=== PATIENT | male | born 1985 | race African-American/Black ===

== ENCOUNTER 2018-05-12 03:12 | Inpatient (IN) | payer MEDICAID, SELFPAY ==
[~2018-05-12] VITALS: Ht 167.6 cm; Wt 132.4 kg
[2018-05-12 04:20] LABS: BASOPHILS # (AUTO) 0.15 x10^3/uL (0-0.1); BASOPHILS % (AUTO) 2 % (0-1); EOSINOPHILS # (AUTO) 0.22 x10^3/uL (0-0.4); EOSINOPHILS % (AUTO) 2 % (1-7); LYMPHOCYTES # (AUTO) 1.52 x10^3/uL (1-3.4); LYMPHOCYTES % (AUTO) 17 % (22-44); MD NO; MEAN CORPUSCULAR HEMOGLOBIN 27.7 pg (27.5-34.5); MEAN CORPUSCULAR HGB CONC 31.9 g/dL (33.2-36.2); MEAN PLATELET VOLUME 9.7 fL (7.4-10.4); MONOCYTES # (AUTO) 0.79 x10^3/uL (0.2-0.8); MONOCYTES % (AUTO) 9 % (2-9); NEUTROPHILS # (AUTO) 6.46 x10^3/uL (1.8-6.8); NEUTROPHILS % (AUTO) 71 % (42-75); PLATELET COUNT 138 x10^3/uL (130-400); RED BLOOD COUNT 6.08 x10^6/uL (4.38-5.82)
[2018-05-12 04:34] LABS: ALANINE AMINOTRANSFERASE 28 U/L (12-78); ALBUMIN 2.5 g/dL (3.4-5.0); ANION GAP 5 mmol/L (5-15); CALCIUM 7.3 mg/dL (8.5-10.1); CHLORIDE 106 mmol/L (98-107); CREATININE 1.44 mg/dL (0.7-1.3)
[2018-05-12 04:38] LABS: ALKALINE PHOSPHATASE 56 U/L (45-117); TOTAL PROTEIN 7.8 g/dL (6.4-8.2); TROPONIN I < 0.015 ng/mL (0.000-0.045)
[2018-05-12] MEDS ORDERED: FUROSEMIDE 40 MG/4 ML ONE (06:31)
[2018-05-12] MEDS: FUROSEMIDE 40 MG/4 ML IV ONE ×2 (06:51→07:00)
[2018-05-12] MEDS ORDERED: DOCUSATE 100 MG CAPSULE PO PRN (08:00)
[2018-05-12] MEDS ORDERED: GUAIFENESIN/DM 200-20MG, 10ML UDC PO PRN (08:00)
[2018-05-12] MEDS ORDERED: BISACODYL 10 MG SUPP PR PRN (08:00)
[2018-05-12] MEDS ORDERED: ENALAPRILAT 1.25 MG/ML, 2ML IVPush PRN (08:00)
[2018-05-12] MEDS ORDERED: POLYETHYLENE GLYCOL 17 GM PACKET PO PRN (08:00)
[2018-05-12] MEDS ORDERED: hydrALAzine 20 MG/ML, 1ML IVPush PRN (08:00)
[2018-05-12] MEDS ORDERED: LABETALOL 5MG/ML, 20ML IVPush PRN (08:00)
[2018-05-12] MEDS ORDERED: FUROSEMIDE 20 MG/2 ML IV SCH (09:00)
[2018-05-12 09:10] LABS: TROPONIN I < 0.015 ng/mL (0.000-0.045)
[2018-05-12 09:16] LABS: FREE T4 (FREE THYROXINE) 1.06 ng/dL (0.76-1.46)
[2018-05-12 13:42] LABS: TROPONIN I < 0.015 ng/mL (0.000-0.045)
[2018-05-12 13:47] LABS: HEMOGLOBIN A1C 5.3 % (4.2-6.3)
[2018-05-12] MEDS ORDERED: PROPOFOL 100 ML IV ONE (14:39)
[2018-05-12] MEDS ORDERED: MIDAZOLAM 1 MG/ML, 5ML ONE ×2 (14:42→15:59)
[2018-05-12] MEDS ORDERED: FENTANYL PF 100 MCG/2ML IVPush PRN (15:00)
[2018-05-12] MEDS ORDERED: SILDENAFIL 10MG/12.5ML IVPush SCH (15:00)
[2018-05-12] MEDS ORDERED: LIDOCAINE-MPF 1%, 2ML ENDO PRN (15:00)
[2018-05-12] MEDS ORDERED: PHARMACY MAY ADJ FOR RENAL FX MC SCH (15:00)
[2018-05-12] MEDS: PROPOFOL 100 ML IV PRN ×4 (15:14→22:46)
[2018-05-12] MEDS ORDERED: VECURONIUM 10 MG ONE (15:59)
[2018-05-12 16:21] LABS: CULTURE INDICATED? YES; MICROSCOPIC INDICATED
[2018-05-12 16:25] LABS: AMPHETAMINE SCREEN, URINE Negative (Negative); BARBITURATE SCREEN, URINE Negative (Negative); BENZODIAZEPINE SCREEN, URINE Positive (Negative); CANNABINOID SCREEN, URINE Negative (Negative); COCAINE SCREEN, URINE Negative (Negative); METHADONE SCREEN, URINE Negative (Negative); OPIATE SCREEN, URINE Negative (Negative)
[2018-05-12] MEDS: SILDENAFIL 20 MG TABLET PO SCH (17:19)
[2018-05-12] MEDS: FUROSEMIDE 40 MG/4 ML IV SCH (17:46)
[2018-05-12] MEDS: RIVAROXABAN 20 MG TABLET PO SCH (17:46)
[2018-05-12] MEDS ORDERED: APIXABAN 5 MG TABLET PO SCH (21:00)
[2018-05-13] MEDS: PROPOFOL 100 ML IV PRN ×5 (04:31→20:43)
[2018-05-13 04:35] LABS: BASOPHILS # (AUTO) 0.06 x10^3/uL (0-0.1); BASOPHILS % (AUTO) 1 % (0-1); EOSINOPHILS # (AUTO) 0.13 x10^3/uL (0-0.4); EOSINOPHILS % (AUTO) 1 % (1-7); LYMPHOCYTES # (AUTO) 0.92 x10^3/uL (1-3.4); LYMPHOCYTES % (AUTO) 8 % (22-44); MD NO; MEAN CORPUSCULAR HEMOGLOBIN 27.7 pg (27.5-34.5); MEAN CORPUSCULAR HGB CONC 32.1 g/dL (33.2-36.2); MEAN CORPUSCULAR VOLUME 86.3 fL (81-97); MONOCYTES # (AUTO) 0.81 x10^3/uL (0.2-0.8); MONOCYTES % (AUTO) 7 % (2-9); NEUTROPHILS # (AUTO) 9.13 x10^3/uL (1.8-6.8); NEUTROPHILS % (AUTO) 83 % (42-75); PLATELET COUNT 122 x10^3/uL (130-400); RED BLOOD COUNT 6.08 x10^6/uL (4.38-5.82); RED CELL DISTRIBUTION WIDTH 18.1 % (9.4-14.8)
[2018-05-13 04:49] LABS: CALCIUM 8.2 mg/dL (8.5-10.1); CHLORIDE 103 mmol/L (98-107)
[2018-05-13 04:57] LABS: ALANINE AMINOTRANSFERASE 24 U/L (12-78); ALBUMIN 2.4 g/dL (3.4-5.0); ALKALINE PHOSPHATASE 54 U/L (45-117); ANION GAP 10 mmol/L (5-15); CHOL/HDL RATIO 3.2; CHOLESTEROL, TOTAL 60 mg/dL (140-239); HDL CHOL % 32 % (26-37); HDL CHOLESTEROL (DIRECT) 19 mg/dL (40-60); TOTAL PROTEIN 7.3 g/dL (6.4-8.2)
[2018-05-13 04:58] LABS: LDL CHOLESTEROL,CALCULATED 21 mg/dL (54-169); LDL/HDL RATIO 1.1 (0.5-3.0); TRIGLYCERIDES 101 mg/dL (50-200); VLDL CHOLESTEROL 20 mg/dL (0-25)
[2018-05-13] MEDS: FUROSEMIDE 40 MG/4 ML IV SCH ×2 (05:27→17:30)
[2018-05-13] MEDS: SILDENAFIL 20 MG TABLET PO SCH ×3 (05:27→22:35)
[2018-05-13] MEDS ORDERED: POTASSIUM PHOS 4.4 MEQ/ML IV STA (11:07)
[2018-05-13] MEDS ORDERED: MAGNESIUM SULFATE PMX 2GM/50ML 50 ML IV ONE (11:30)
[2018-05-13] MEDS ORDERED: POTASSIUM PHOSPHATE 44 MEQ in SODIUM CHLORIDE 0.9% 500 ML IV ONE (11:30)
[2018-05-13] MEDS: FAMOTIDINE 20 MG/2 ML IVPush SCH ×2 (12:16→22:36)
[2018-05-13] MEDS ORDERED: FUROSEMIDE 40 MG/4 ML IV STA (16:32)
[2018-05-13] MEDS ORDERED: AcetaZOLAMIDE INJ 500 MG IVPush ONE (17:00)
[2018-05-13] MEDS: RIVAROXABAN 20 MG TABLET PO SCH (17:16)
[2018-05-13] MEDS: CEFTRIAXONE PMX 2GM/50ML 50 ML IV SCH (18:40)
[2018-05-14] MEDS: PROPOFOL 100 ML IV PRN ×2 (00:15→04:29)
[2018-05-14 04:35] LABS: BASOPHILS # (AUTO) 0.04 x10^3/uL (0-0.1); BASOPHILS % (AUTO) 0 % (0-1); EOSINOPHILS # (AUTO) 0.24 x10^3/uL (0-0.4); EOSINOPHILS % (AUTO) 2 % (1-7); LYMPHOCYTES # (AUTO) 0.99 x10^3/uL (1-3.4); LYMPHOCYTES % (AUTO) 10 % (22-44); MD NO; MEAN CORPUSCULAR HGB CONC 32.4 g/dL (33.2-36.2); MEAN CORPUSCULAR VOLUME 86.4 fL (81-97); MEAN PLATELET VOLUME 10.2 fL (7.4-10.4); MONOCYTES # (AUTO) 0.44 x10^3/uL (0.2-0.8); MONOCYTES % (AUTO) 4 % (2-9); NEUTROPHILS # (AUTO) 8.44 x10^3/uL (1.8-6.8); NEUTROPHILS % (AUTO) 83 % (42-75); PLATELET COUNT 130 x10^3/uL (130-400); RED BLOOD COUNT 6.27 x10^6/uL (4.38-5.82); RED CELL DISTRIBUTION WIDTH 18.3 % (9.4-14.8)
[2018-05-14 04:47] LABS: ANION GAP 8 mmol/L (5-15); CALCIUM 7.6 mg/dL (8.5-10.1); CHLORIDE 101 mmol/L (98-107)
[2018-05-14 04:48] LABS: CREATININE 1.45 mg/dL (0.7-1.3)
[2018-05-14] MEDS: SILDENAFIL 20 MG TABLET PO SCH ×3 (05:31→21:26)
[2018-05-14] MEDS: FUROSEMIDE 40 MG/4 ML IV SCH ×2 (05:31→18:17)
[2018-05-14] MEDS ORDERED: MAGNESIUM SULFATE PMX 2GM/50ML 50 ML IV ONE (08:30)
[2018-05-14] MEDS: FAMOTIDINE 20 MG/2 ML IVPush SCH ×2 (12:20→21:26)
[2018-05-14] MEDS: CEFTRIAXONE PMX 2GM/50ML 50 ML IV SCH (15:52)
[2018-05-14] MEDS: RIVAROXABAN 20 MG TABLET PO SCH (18:19)
[2018-05-15 04:39] LABS: BASOPHILS # (AUTO) 0.05 x10^3/uL (0-0.1); BASOPHILS % (AUTO) 0 % (0-1); EOSINOPHILS % (AUTO) 3 % (1-7); LYMPHOCYTES % (AUTO) 9 % (22-44); MD NO; MEAN CORPUSCULAR HEMOGLOBIN 28.1 pg (27.5-34.5); MEAN CORPUSCULAR HGB CONC 32.1 g/dL (33.2-36.2); MEAN CORPUSCULAR VOLUME 87.7 fL (81-97); MEAN PLATELET VOLUME 10.3 fL (7.4-10.4); MONOCYTES # (AUTO) 0.53 x10^3/uL (0.2-0.8); MONOCYTES % (AUTO) 5 % (2-9); NEUTROPHILS # (AUTO) 8.72 x10^3/uL (1.8-6.8); NEUTROPHILS % (AUTO) 83 % (42-75); PLATELET COUNT 146 x10^3/uL (130-400); RED BLOOD COUNT 6.36 x10^6/uL (4.38-5.82); RED CELL DISTRIBUTION WIDTH 18.4 % (9.4-14.8)
[2018-05-15] MEDS: SILDENAFIL 20 MG TABLET PO SCH ×3 (06:20→21:01)
[2018-05-15] MEDS: FUROSEMIDE 40 MG/4 ML IV SCH ×2 (06:20→17:20)
[2018-05-15 09:23] LABS: ANION GAP 9 mmol/L (5-15); CALCIUM 8.3 mg/dL (8.5-10.1); CHLORIDE 102 mmol/L (98-107)
[2018-05-15] MEDS: SPIRONOLACTONE 25 MG TABLET PO SCH (09:29)
[2018-05-15] MEDS: CEFDINIR 300 MG CAPSULE PO SCH ×2 (09:29→21:01)
[2018-05-15] MEDS: RIVAROXABAN 20 MG TABLET PO SCH (17:20)
[2018-05-15 19:04] LABS: CALCIUM 8.3 mg/dL (8.5-10.1)
[2018-05-16 04:57] LABS: ANION GAP 6 mmol/L (5-15); CALCIUM 8.2 mg/dL (8.5-10.1); CHLORIDE 99 mmol/L (98-107); CREATININE 1.12 mg/dL (0.7-1.3)
[2018-05-16] MEDS: FUROSEMIDE 40 MG/4 ML IV SCH (05:54)
[2018-05-16] MEDS: SILDENAFIL 20 MG TABLET PO SCH ×3 (05:54→21:29)
[2018-05-16] MEDS: SPIRONOLACTONE 25 MG TABLET PO SCH (09:38)
[2018-05-16] MEDS: CEFDINIR 300 MG CAPSULE PO SCH ×2 (09:38→21:28)
[2018-05-16] MEDS: OXYcodone IR 5MG TABLET PO PRN (17:51)
[2018-05-16] MEDS: RIVAROXABAN 20 MG TABLET PO SCH (17:51)
[2018-05-17 00:11] VITALS: BP 111/73
[2018-05-17] MEDS: FUROSEMIDE 40 MG/4 ML IV SCH (05:04)
[2018-05-17] MEDS: SILDENAFIL 20 MG TABLET PO SCH ×3 (05:05→21:33)
[2018-05-17 05:24] LABS: CHLORIDE 99 mmol/L (98-107)
[2018-05-17 05:30] LABS: ANION GAP 7 mmol/L (5-15); CALCIUM 8.8 mg/dL (8.5-10.1); CREATININE 0.97 mg/dL (0.7-1.3)
[2018-05-17] MEDS: SPIRONOLACTONE 25 MG TABLET PO SCH (09:10)
[2018-05-17] MEDS: OXYcodone IR 5MG TABLET PO PRN (09:11)
[2018-05-17 12:32] VITALS: BP 104/63
[2018-05-17] MEDS: RIVAROXABAN 20 MG TABLET PO SCH (17:45)
[2018-05-17 20:49] VITALS: BP 107/64
[2018-05-18] MEDS: ACETAMINOPHEN 325 MG TABLET PO PRN ×2 (01:27→13:55)
[2018-05-18 01:30] VITALS: BP 100/62
[2018-05-18] MEDS ORDERED: VANCOMYCIN 2,100 MG in SODIUM CHLORIDE 0.9% 500 ML IV SCH (02:00)
[2018-05-18] MEDS ORDERED: PHARMACOKINETIC MONITORING MC PRN (02:00)
[2018-05-18] MEDS ORDERED: VANCOMYCIN PER PHARMACY MC PRN (02:00)
[2018-05-18] MEDS ORDERED: PHARMACOKINETIC CONSULTATION MC ONE (02:00)
[2018-05-18 05:51] VITALS: BP 101/68
[2018-05-18] MEDS: SILDENAFIL 20 MG TABLET PO SCH ×3 (05:52→21:55)
[2018-05-18] MEDS: FUROSEMIDE 40 MG/4 ML IV SCH (05:52)
[2018-05-18 07:35] VITALS: BP 101/65
[2018-05-18] MEDS: SPIRONOLACTONE 25 MG TABLET PO SCH (09:16)
[2018-05-18 10:24] LABS: MEAN CORPUSCULAR HEMOGLOBIN 27.5 pg (27.5-34.5); MEAN CORPUSCULAR HGB CONC 31.5 g/dL (33.2-36.2); MEAN CORPUSCULAR VOLUME 87.5 fL (81-97); MEAN PLATELET VOLUME 10.9 fL (7.4-10.4); PLATELET COUNT 142 x10^3/uL (130-400); RED CELL DISTRIBUTION WIDTH 16.7 % (9.4-14.8)
[2018-05-18 10:31] LABS: ALANINE AMINOTRANSFERASE 48 U/L (12-78); ALBUMIN 2.7 g/dL (3.4-5.0); ANION GAP 5 mmol/L (5-15); CALCIUM 8.8 mg/dL (8.5-10.1); CHLORIDE 100 mmol/L (98-107)
[2018-05-18 10:34] LABS: ALKALINE PHOSPHATASE 82 U/L (45-117); BILIRUBIN,TOTAL 5.9 mg/dL (0.2-1.0); CREATININE 1.42 mg/dL (0.7-1.3); TOTAL PROTEIN 8.5 g/dL (6.4-8.2)
[2018-05-18 10:41] LABS: MD YES
[2018-05-18 10:49] LABS: BAND#(MANUAL) 6.74 x10^3/uL; BANDS%(MANUAL) 24 % (0-7); LYMPH#(MANUAL) 0.84 x10^3/uL (1-3.4); LYMPHS% (MANUAL) 3 % (22-44); MONOS#(MANUAL) 0.84 x10^3/uL (0.3-2.7); MONOS% (MANUAL) 3 % (2-9); SEG#(MANUAL) 19.67 x10^3/uL (1.8-6.8); SEGS% (MANUAL) 70 % (42-75)
[2018-05-18 10:51] LABS: <PLATELET ESTIMATE> ADEQUATE; ANISOCYTOSIS 1+; LARGE PLATELETS 1+; STOMATOCYTES 1+
[2018-05-18] MEDS: PIPERACILLIN/TAZO/PMX 3.375GM 50 ML IV SCH ×2 (12:53→19:36)
[2018-05-18 13:28] LABS: CULTURE INDICATED? YES; MICROSCOPIC INDICATED
[2018-05-18] MEDS: SODIUM CHLORIDE 0.9% 1,000 ML IV SCH ×2 (13:28→18:23)
[2018-05-18] MEDS ORDERED: MAGNESIUM SULFATE PMX 2GM/50ML 50 ML IV ONE (13:30)
[2018-05-18] MEDS: VANCOMYCIN 2,000 MG in SODIUM CHLORIDE 0.9% 500 ML IV SCH (13:59)
[2018-05-18] MEDS: OXYcodone IR 5MG TABLET PO PRN (14:07)
[2018-05-18] MEDS ORDERED: ONDANSETRON 2MG/ML, 2ML ONE (14:17)
[2018-05-18] MEDS ORDERED: ACETAMINOPHEN 650 MG SUPP ONE (14:22)
[2018-05-18] MEDS ORDERED: ACETAMINOPHEN 325 MG SUPP PR PRN (14:30)
[2018-05-18] MEDS ORDERED: ACETAMINOPHEN 650 MG SUPP PR ONE (15:00)
[2018-05-18] MEDS ORDERED: ONDANSETRON 2MG/ML, 2ML IVPush PRN (15:00)
[2018-05-18] MEDS ORDERED: SODIUM CHLORIDE 0.9% 1,000ML IVBOLUS ONE ×2 (15:00→19:00)
[2018-05-18] MEDS ORDERED: OXYcodone IR 5MG TABLET PO PRN (16:00)
[2018-05-18] MEDS ORDERED: LIDOCAINE-MPF 1%, 5ML ONE (16:41)
[2018-05-18 16:42] LABS: ALBUMIN 2.2 g/dL (3.4-5.0); ANION GAP 7 mmol/L (5-15); CALCIUM 7.8 mg/dL (8.5-10.1); CHLORIDE 100 mmol/L (98-107)
[2018-05-18 16:45] LABS: ALANINE AMINOTRANSFERASE 47 U/L (12-78); ALKALINE PHOSPHATASE 142 U/L (45-117); BILIRUBIN,TOTAL 6.5 mg/dL (0.2-1.0); CREATININE 1.98 mg/dL (0.7-1.3); TOTAL PROTEIN 7.9 g/dL (6.4-8.2)
[2018-05-18] MEDS ORDERED: ALBUMIN HUMAN 25% 100 ML ONE (17:11)
[2018-05-18] MEDS: RIVAROXABAN 20 MG TABLET PO SCH (17:30)
[2018-05-18] MEDS ORDERED: ALBUMIN HUMAN 25% 100 ML IV ONE ×2 (17:30→20:30)
[2018-05-18] MEDS: NOREPINEPHRINE 4 MG in SODIUM CHLORIDE 0.9% 246 ML IV PRN ×2 (18:07→21:20)
[2018-05-18 18:26] LABS: TROPONIN I 0.027 ng/mL (0.000-0.045)
[2018-05-18] MEDS ORDERED: VASOPRESSIN 100 UNIT in SODIUM CHLORIDE 0.9% 495 ML IV PRN (18:30)
[2018-05-18] MEDS ORDERED: PHARMACY MAY ADJ FOR RENAL FX MC PRN (19:00)
[2018-05-18] MEDS ORDERED: ONDANSETRON 2MG/ML, 2ML IVPB PRN (19:00)
[2018-05-18] MEDS ORDERED: SODIUM CHLORIDE 0.9%, 500ML IVBOLUS PRN ×2 (19:00)
[2018-05-18] MEDS ORDERED: MORPHINE SULFATE 4 MG/ML, 1ML IV PRN (19:00)
[2018-05-18] MEDS: HEPARIN 5,000 UNITS/ML, 1ML SQ SCH (19:39)
[2018-05-18 19:56] LABS: MICROSCOPIC INDICATED
[2018-05-18 19:57] LABS: CULTURE INDICATED? YES
[2018-05-18] MEDS ORDERED: LORazepam 2 MG/ML, 1ML IVPush PRN (20:30)
[2018-05-18] MEDS ORDERED: NOREPINEPHRINE 1 MG/ML, 4ML ONE (21:16)
[2018-05-18] MEDS ORDERED: NOREPINEPHRINE 8 MG in SODIUM CHLORIDE 0.9% 242 ML IV PRN (21:30)
[2018-05-18] MEDS ORDERED: SODIUM BICARBONATE 1 MEQ/ML, 50ML VIAL ONE (21:47)
[2018-05-18] MEDS ORDERED: SODIUM BICARB 8.4%, 50ML SYRINGE ONE ×3 (21:48→21:49)
[2018-05-18] MEDS ORDERED: SODIUM BICARB 8.4%, 50ML SYRINGE IVPush ONE ×2 (22:00)
[2018-05-19] MEDS ORDERED: SODIUM CHLORIDE 0.45% 1,000 ML IV SCH
[2018-05-19 01:30] LABS: TROPONIN I 0.016 ng/mL (0.000-0.045)
[2018-05-19] MEDS: PIPERACILLIN/TAZO/PMX 3.375GM 50 ML IV SCH ×4 (01:33→20:36)
[2018-05-19] MEDS: VANCOMYCIN 2,000 MG in SODIUM CHLORIDE 0.9% 500 ML IV SCH ×2 (01:54→14:00)
[2018-05-19] MEDS: HEPARIN 5,000 UNITS/ML, 1ML SQ SCH (05:00)
[2018-05-19 05:28] LABS: ALANINE AMINOTRANSFERASE 47 U/L (12-78); ALBUMIN 2.7 g/dL (3.4-5.0); ANION GAP 6 mmol/L (5-15); CALCIUM 7.7 mg/dL (8.5-10.1); CHLORIDE 103 mmol/L (98-107)
[2018-05-19 05:31] LABS: ALKALINE PHOSPHATASE 52 U/L (45-117); BILIRUBIN,TOTAL 5.8 mg/dL (0.2-1.0); TOTAL PROTEIN 7.6 g/dL (6.4-8.2)
[2018-05-19 05:42] LABS: MEAN CORPUSCULAR HEMOGLOBIN 28.4 pg (27.5-34.5); MEAN CORPUSCULAR HGB CONC 32.7 g/dL (33.2-36.2); MEAN CORPUSCULAR VOLUME 86.8 fL (81-97); MEAN PLATELET VOLUME 11.1 fL (7.4-10.4); PLATELET COUNT 114 x10^3/uL (130-400); RED BLOOD COUNT 5.41 x10^6/uL (4.38-5.82); RED CELL DISTRIBUTION WIDTH 17.2 % (9.4-14.8)
[2018-05-19] MEDS: SILDENAFIL 20 MG TABLET PO SCH ×3 (06:11→22:00)
[2018-05-19 06:22] LABS: MD YES
[2018-05-19 06:23] LABS: ANISOCYTOSIS 1+; BAND#(MANUAL) 2.74 x10^3/uL; BANDS%(MANUAL) 12 % (0-7); LYMPHS% (MANUAL) 7 % (22-44); MONOS#(MANUAL) 1.37 x10^3/uL (0.3-2.7); MONOS% (MANUAL) 6 % (2-9); SEGS% (MANUAL) 75 % (42-75)
[2018-05-19 06:24] LABS: <PLATELET ESTIMATE> DECREASED; LARGE PLATELETS 1+
[2018-05-19] MEDS: SPIRONOLACTONE 25 MG TABLET PO SCH (08:05)
[2018-05-19] MEDS: RIVAROXABAN 20 MG TABLET PO SCH (18:32)
[2018-05-20] MEDS: PIPERACILLIN/TAZO/PMX 3.375GM 50 ML IV SCH ×2 (01:24→08:45)
[2018-05-20] MEDS ORDERED: VANCOMYCIN 2,000 MG in SODIUM CHLORIDE 0.9% 500 ML IV SCH (02:00)
[2018-05-20 04:06] LABS: BASOPHILS # (AUTO) 0.05 x10^3/uL (0-0.1); BASOPHILS % (AUTO) 0 % (0-1); EOSINOPHILS # (AUTO) 0.23 x10^3/uL (0-0.4); EOSINOPHILS % (AUTO) 2 % (1-7); LYMPHOCYTES % (AUTO) 16 % (22-44); MD NO; MEAN CORPUSCULAR HEMOGLOBIN 28.2 pg (27.5-34.5); MEAN CORPUSCULAR HGB CONC 32.3 g/dL (33.2-36.2); MEAN CORPUSCULAR VOLUME 87.3 fL (81-97); MEAN PLATELET VOLUME 10.8 fL (7.4-10.4); MONOCYTES # (AUTO) 1.22 x10^3/uL (0.2-0.8); MONOCYTES % (AUTO) 10 % (2-9); NEUTROPHILS # (AUTO) 8.35 x10^3/uL (1.8-6.8); NEUTROPHILS % (AUTO) 71 % (42-75); PLATELET COUNT 122 x10^3/uL (130-400); RED BLOOD COUNT 5.05 x10^6/uL (4.38-5.82); RED CELL DISTRIBUTION WIDTH 17.2 % (9.4-14.8)
[2018-05-20 04:16] LABS: ANION GAP 4 mmol/L (5-15); CHLORIDE 104 mmol/L (98-107)
[2018-05-20 04:17] LABS: CALCIUM 8.2 mg/dL (8.5-10.1); CREATININE 1.08 mg/dL (0.7-1.3)
[2018-05-20] MEDS: SILDENAFIL 20 MG TABLET PO SCH ×3 (06:19→21:24)
[2018-05-20] MEDS: SPIRONOLACTONE 25 MG TABLET PO SCH (08:45)
[2018-05-20] MEDS: MEROPENEM 1 GM in SODIUM CHLORIDE 0.9% 100 ML IV SCH ×2 (12:40→18:17)
[2018-05-20] MEDS: RIVAROXABAN 20 MG TABLET PO SCH (17:28)
[2018-05-21] MEDS: MEROPENEM 1 GM in SODIUM CHLORIDE 0.9% 100 ML IV SCH ×3 (04:05→20:01)
[2018-05-21] MEDS: SILDENAFIL 20 MG TABLET PO SCH ×3 (06:06→21:41)
[2018-05-21 08:03] LABS: ALBUMIN 2.6 g/dL (3.4-5.0); ANION GAP 7 mmol/L (5-15); CALCIUM 8.6 mg/dL (8.5-10.1); CHLORIDE 104 mmol/L (98-107)
[2018-05-21 08:06] LABS: BASOPHILS # (AUTO) 0.05 x10^3/uL (0-0.1); BASOPHILS % (AUTO) 1 % (0-1); EOSINOPHILS # (AUTO) 0.23 x10^3/uL (0-0.4); EOSINOPHILS % (AUTO) 4 % (1-7); LYMPHOCYTES # (AUTO) 1.71 x10^3/uL (1-3.4); LYMPHOCYTES % (AUTO) 26 % (22-44); MD NO; MEAN CORPUSCULAR HEMOGLOBIN 28.8 pg (27.5-34.5); MEAN CORPUSCULAR VOLUME 87.2 fL (81-97); MEAN PLATELET VOLUME 10.3 fL (7.4-10.4); MONOCYTES # (AUTO) 0.46 x10^3/uL (0.2-0.8); MONOCYTES % (AUTO) 7 % (2-9); NEUTROPHILS # (AUTO) 4.04 x10^3/uL (1.8-6.8); NEUTROPHILS % (AUTO) 62 % (42-75); PLATELET COUNT 117 x10^3/uL (130-400); RED BLOOD COUNT 5.34 x10^6/uL (4.38-5.82); RED CELL DISTRIBUTION WIDTH 17.4 % (9.4-14.8)
[2018-05-21 08:07] LABS: ALANINE AMINOTRANSFERASE 34 U/L (12-78); ALKALINE PHOSPHATASE 43 U/L (45-117); BILIRUBIN,TOTAL 2.2 mg/dL (0.2-1.0); CREATININE 0.78 mg/dL (0.7-1.3); TOTAL PROTEIN 7.8 g/dL (6.4-8.2)
[2018-05-21] MEDS: SPIRONOLACTONE 25 MG TABLET PO SCH (12:12)
[2018-05-21] MEDS ORDERED: FUROSEMIDE 40 MG/4 ML IV ONE (14:00)
[2018-05-21] MEDS: RIVAROXABAN 20 MG TABLET PO SCH (18:21)
[2018-05-22] MEDS: MEROPENEM 1 GM in SODIUM CHLORIDE 0.9% 100 ML IV SCH ×3 (03:28→19:43)
[2018-05-22 05:01] LABS: BASOPHILS # (AUTO) 0.06 x10^3/uL (0-0.1); BASOPHILS % (AUTO) 1 % (0-1); EOSINOPHILS # (AUTO) 0.32 x10^3/uL (0-0.4); EOSINOPHILS % (AUTO) 4 % (1-7); LYMPHOCYTES # (AUTO) 2.26 x10^3/uL (1-3.4); LYMPHOCYTES % (AUTO) 29 % (22-44); MD NO; MEAN CORPUSCULAR HEMOGLOBIN 28.3 pg (27.5-34.5); MEAN CORPUSCULAR HGB CONC 32.9 g/dL (33.2-36.2); MEAN CORPUSCULAR VOLUME 85.9 fL (81-97); MEAN PLATELET VOLUME 10.6 fL (7.4-10.4); MONOCYTES # (AUTO) 0.44 x10^3/uL (0.2-0.8); MONOCYTES % (AUTO) 6 % (2-9); NEUTROPHILS % (AUTO) 61 % (42-75); PLATELET COUNT 156 x10^3/uL (130-400); RED CELL DISTRIBUTION WIDTH 16.5 % (9.4-14.8)
[2018-05-22 05:05] LABS: ALANINE AMINOTRANSFERASE 35 U/L (12-78); ALBUMIN 2.7 g/dL (3.4-5.0); ANION GAP 5 mmol/L (5-15); CALCIUM 8.5 mg/dL (8.5-10.1); CHLORIDE 101 mmol/L (98-107); CREATININE 0.82 mg/dL (0.7-1.3)
[2018-05-22 05:13] LABS: ALKALINE PHOSPHATASE 45 U/L (45-117); BILIRUBIN,TOTAL 2.2 mg/dL (0.2-1.0); TOTAL PROTEIN 7.8 g/dL (6.4-8.2)
[2018-05-22] MEDS: SILDENAFIL 20 MG TABLET PO SCH ×3 (06:18→21:47)
[2018-05-22] MEDS: SPIRONOLACTONE 25 MG TABLET PO SCH (09:20)
[2018-05-22] MEDS: RIVAROXABAN 20 MG TABLET PO SCH (17:32)
[2018-05-23] MEDS: MEROPENEM 1 GM in SODIUM CHLORIDE 0.9% 100 ML IV SCH ×3 (03:24→19:52)
[2018-05-23 04:37] LABS: BASOPHILS # (AUTO) 0.08 x10^3/uL (0-0.1); BASOPHILS % (AUTO) 1 % (0-1); EOSINOPHILS # (AUTO) 0.34 x10^3/uL (0-0.4); EOSINOPHILS % (AUTO) 5 % (1-7); LYMPHOCYTES # (AUTO) 2.31 x10^3/uL (1-3.4); LYMPHOCYTES % (AUTO) 33 % (22-44); MD NO; MEAN CORPUSCULAR HEMOGLOBIN 28.2 pg (27.5-34.5); MEAN CORPUSCULAR VOLUME 85.5 fL (81-97); MEAN PLATELET VOLUME 10.2 fL (7.4-10.4); MONOCYTES # (AUTO) 0.42 x10^3/uL (0.2-0.8); MONOCYTES % (AUTO) 6 % (2-9); NEUTROPHILS # (AUTO) 3.87 x10^3/uL (1.8-6.8); NEUTROPHILS % (AUTO) 55 % (42-75); PLATELET COUNT 173 x10^3/uL (130-400)
[2018-05-23 04:43] LABS: ANION GAP 6 mmol/L (5-15); CALCIUM 8.6 mg/dL (8.5-10.1); CHLORIDE 102 mmol/L (98-107); CREATININE 0.79 mg/dL (0.7-1.3)
[2018-05-23] MEDS: SILDENAFIL 20 MG TABLET PO SCH ×3 (06:10→21:54)
[2018-05-23 07:44] VITALS: BP 101/69
[2018-05-23] MEDS: SPIRONOLACTONE 25 MG TABLET PO SCH (08:50)
[2018-05-23 14:00] VITALS: BP 98/68
[2018-05-23] MEDS: RIVAROXABAN 20 MG TABLET PO SCH (17:50)
[2018-05-23] MEDS ORDERED: MAGNESIUM SULFATE PMX 2GM/50ML 50 ML IV ONE (18:30)
[2018-05-24 02:10] VITALS: BP 103/67
[2018-05-24] MEDS: MEROPENEM 1 GM in SODIUM CHLORIDE 0.9% 100 ML IV SCH (03:33)
[2018-05-24 04:52] LABS: BASOPHILS # (AUTO) 0.11 x10^3/uL (0-0.1); BASOPHILS % (AUTO) 1 % (0-1); EOSINOPHILS # (AUTO) 0.42 x10^3/uL (0-0.4); EOSINOPHILS % (AUTO) 6 % (1-7); LYMPHOCYTES # (AUTO) 2.56 x10^3/uL (1-3.4); LYMPHOCYTES % (AUTO) 33 % (22-44); MD NO; MEAN CORPUSCULAR HEMOGLOBIN 28.1 pg (27.5-34.5); MEAN CORPUSCULAR HGB CONC 33.2 g/dL (33.2-36.2); MEAN CORPUSCULAR VOLUME 84.7 fL (81-97); MEAN PLATELET VOLUME 10.4 fL (7.4-10.4); MONOCYTES # (AUTO) 0.37 x10^3/uL (0.2-0.8); MONOCYTES % (AUTO) 5 % (2-9); NEUTROPHILS # (AUTO) 4.21 x10^3/uL (1.8-6.8); NEUTROPHILS % (AUTO) 55 % (42-75); PLATELET COUNT 180 x10^3/uL (130-400); RED BLOOD COUNT 5.68 x10^6/uL (4.38-5.82); RED CELL DISTRIBUTION WIDTH 15.5 % (9.4-14.8)
[2018-05-24 04:57] LABS: ANION GAP 7 mmol/L (5-15); CALCIUM 8.4 mg/dL (8.5-10.1); CHLORIDE 102 mmol/L (98-107)
[2018-05-24 05:00] LABS: CREATININE 0.84 mg/dL (0.7-1.3)
[2018-05-24] MEDS: SILDENAFIL 20 MG TABLET PO SCH ×3 (06:15→21:28)
[2018-05-24 08:08] VITALS: BP 105/72
[2018-05-24] MEDS: SPIRONOLACTONE 25 MG TABLET PO SCH (09:12)
[2018-05-24] MEDS: ERTAPENEM 1 GM in SODIUM CHLORIDE 0.9% 50 ML IV SCH (11:31)
[2018-05-24 14:14] VITALS: BP 97/64
[2018-05-24] MEDS: RIVAROXABAN 20 MG TABLET PO SCH (17:28)
[2018-05-24 20:48] VITALS: BP 106/67
[2018-05-25] VITALS (7 sets, daily range): BP systolic 85–110; BP diastolic 58–76
[2018-05-25] MEDS: SILDENAFIL 20 MG TABLET PO SCH ×3 (05:31→21:30)
[2018-05-25] MEDS: SPIRONOLACTONE 25 MG TABLET PO SCH ×2 (09:28→09:33)
[2018-05-25] MEDS: ERTAPENEM 1 GM in SODIUM CHLORIDE 0.9% 50 ML IV SCH (12:13)
[2018-05-25] MEDS: RIVAROXABAN 20 MG TABLET PO SCH (17:46)
[2018-05-26 01:52] VITALS: BP 100/55
[2018-05-26] MEDS: SILDENAFIL 20 MG TABLET PO SCH ×3 (05:55→20:59)
[2018-05-26 07:49] VITALS: BP 109/68
[2018-05-26] MEDS: SPIRONOLACTONE 25 MG TABLET PO SCH (08:33)
[2018-05-26] MEDS: ERTAPENEM 1 GM in SODIUM CHLORIDE 0.9% 50 ML IV SCH (11:15)
[2018-05-26] MEDS ORDERED: SILD20TA PO (12:14)
[2018-05-26] MEDS ORDERED: RIVA20TA PO (12:14)
[2018-05-26] MEDS ORDERED: SPIR25TA PO (12:14)
[2018-05-26] MEDS ORDERED: ACET325T14 PO (12:14)
[2018-05-26 14:22] VITALS: BP 94/54
[2018-05-26] MEDS: RIVAROXABAN 20 MG TABLET PO SCH (17:12)
[2018-05-26 19:54] VITALS: BP 99/64
[2018-05-27 01:02] VITALS: BP 100/53
[2018-05-27] MEDS: SILDENAFIL 20 MG TABLET PO SCH ×3 (05:28→21:25)
[2018-05-27 06:44] VITALS: BP 98/54
[2018-05-27] MEDS: SPIRONOLACTONE 25 MG TABLET PO SCH (08:38)
[2018-05-27 08:42] VITALS: BP 103/62
[2018-05-27] MEDS: ERTAPENEM 1 GM in SODIUM CHLORIDE 0.9% 50 ML IV SCH (11:03)
[2018-05-27 13:12] VITALS: BP 105/54
[2018-05-27] MEDS: RIVAROXABAN 20 MG TABLET PO SCH (18:28)
[2018-05-27] MEDS: ACETAMINOPHEN 325 MG TABLET PO PRN (18:31)
[2018-05-27 21:13] VITALS: BP 108/54
[2018-05-28 04:15] VITALS: BP 114/61
[2018-05-28] MEDS: SILDENAFIL 20 MG TABLET PO SCH ×3 (06:00→21:34)
[2018-05-28 06:16] VITALS: BP 99/53
[2018-05-28 08:40] VITALS: BP 124/64
[2018-05-28] MEDS: SPIRONOLACTONE 25 MG TABLET PO SCH (09:27)
[2018-05-28] MEDS: ERTAPENEM 1 GM in SODIUM CHLORIDE 0.9% 50 ML IV SCH (12:01)
[2018-05-28 13:19] VITALS: BP 129/71
[2018-05-28] MEDS: RIVAROXABAN 20 MG TABLET PO SCH (17:54)
[2018-05-28 20:08] VITALS: BP 106/55
[2018-05-29 01:53] VITALS: BP 109/54
[2018-05-29] MEDS: SILDENAFIL 20 MG TABLET PO SCH ×3 (05:36→21:54)
[2018-05-29 06:48] VITALS: BP 114/63
[2018-05-29] MEDS: SPIRONOLACTONE 25 MG TABLET PO SCH (08:10)
[2018-05-29] MEDS: ERTAPENEM 1 GM in SODIUM CHLORIDE 0.9% 50 ML IV SCH (11:05)
[2018-05-29 12:33] VITALS: BP 115/69
[2018-05-29] MEDS: RIVAROXABAN 20 MG TABLET PO SCH (17:39)
[2018-05-29 19:13] VITALS: BP 114/58
[2018-05-30 03:41] VITALS: BP 92/51
[2018-05-30 05:13] LABS: ANION GAP 4 mmol/L (5-15); CALCIUM 9.4 mg/dL (8.5-10.1); CHLORIDE 102 mmol/L (98-107)
[2018-05-30 05:14] LABS: CREATININE 0.92 mg/dL (0.7-1.3)
[2018-05-30] MEDS: SILDENAFIL 20 MG TABLET PO SCH ×3 (06:15→20:51)
[2018-05-30 07:56] VITALS: BP 103/58
[2018-05-30] MEDS: SPIRONOLACTONE 25 MG TABLET PO SCH (09:49)
[2018-05-30] MEDS: ERTAPENEM 1 GM in SODIUM CHLORIDE 0.9% 50 ML IV SCH (11:53)
[2018-05-30 13:48] VITALS: BP 113/65
[2018-05-30] MEDS: RIVAROXABAN 20 MG TABLET PO SCH (17:08)
[2018-05-30 19:43] VITALS: BP 97/54
[2018-05-30] MEDS: ACETAMINOPHEN 325 MG TABLET PO PRN (22:52)
[2018-05-31 01:59] VITALS: BP 95/47
[2018-05-31 06:54] VITALS: BP 89/54
[2018-05-31] MEDS: SILDENAFIL 20 MG TABLET PO SCH ×3 (07:06→20:52)
[2018-05-31 08:37] VITALS: BP 104/55
[2018-05-31 11:08] VITALS: BP 103/61
[2018-05-31] MEDS: ERTAPENEM 1 GM in SODIUM CHLORIDE 0.9% 50 ML IV SCH (11:10)
[2018-05-31] MEDS: SPIRONOLACTONE 25 MG TABLET PO SCH (11:10)
[2018-05-31 14:00] VITALS: BP 102/69
[2018-05-31] MEDS: RIVAROXABAN 20 MG TABLET PO SCH (17:21)
[2018-05-31 18:38] VITALS: BP 100/64
[2018-05-31] MEDS ORDERED: ACETAMINOPHEN 325 MG TABLET ONE (21:16)
[2018-05-31] MEDS: ACETAMINOPHEN 325 MG TABLET PO PRN (21:19)
[2018-06-01 00:18] VITALS: BP 99/66
[2018-06-01 05:29] LABS: BASOPHILS # (AUTO) 0.04 x10^3/uL (0-0.1); BASOPHILS % (AUTO) 1 % (0-1); EOSINOPHILS % (AUTO) 4 % (1-7); LYMPHOCYTES # (AUTO) 1.79 x10^3/uL (1-3.4); LYMPHOCYTES % (AUTO) 32 % (22-44); MD NO; MEAN CORPUSCULAR HEMOGLOBIN 28.3 pg (27.5-34.5); MEAN CORPUSCULAR HGB CONC 33.2 g/dL (33.2-36.2); MEAN CORPUSCULAR VOLUME 85.4 fL (81-97); MEAN PLATELET VOLUME 11.2 fL (7.4-10.4); MONOCYTES # (AUTO) 0.33 x10^3/uL (0.2-0.8); MONOCYTES % (AUTO) 6 % (2-9); NEUTROPHILS # (AUTO) 3.31 x10^3/uL (1.8-6.8); NEUTROPHILS % (AUTO) 58 % (42-75); PLATELET COUNT 205 x10^3/uL (130-400); RED BLOOD COUNT 5.71 x10^6/uL (4.38-5.82); RED CELL DISTRIBUTION WIDTH 15.2 % (9.4-14.8)
[2018-06-01 05:39] LABS: ALBUMIN 3.1 g/dL (3.4-5.0); ANION GAP 2 mmol/L (5-15); CHLORIDE 100 mmol/L (98-107)
[2018-06-01 05:41] LABS: CREATININE 0.91 mg/dL (0.7-1.3)
[2018-06-01] MEDS: SILDENAFIL 20 MG TABLET PO SCH ×3 (06:16→22:03)
[2018-06-01 07:55] VITALS: BP 113/79
[2018-06-01] MEDS: SPIRONOLACTONE 25 MG TABLET PO SCH (09:56)
[2018-06-01] MEDS: ERTAPENEM 1 GM in SODIUM CHLORIDE 0.9% 50 ML IV SCH (11:16)
[2018-06-01 14:00] VITALS: BP 122/72
[2018-06-01] MEDS: RIVAROXABAN 20 MG TABLET PO SCH (17:41)
[2018-06-01 19:22] VITALS: BP 114/69
[2018-06-02 02:07] VITALS: BP 107/62
[2018-06-02] MEDS: SILDENAFIL 20 MG TABLET PO SCH (05:46)
[2018-06-02 06:05] LABS: MEAN CORPUSCULAR HEMOGLOBIN 28.1 pg (27.5-34.5); MEAN CORPUSCULAR HGB CONC 33.1 g/dL (33.2-36.2); MEAN CORPUSCULAR VOLUME 84.7 fL (81-97); MEAN PLATELET VOLUME 11.8 fL (7.4-10.4); PLATELET COUNT 213 x10^3/uL (130-400); RED BLOOD COUNT 5.39 x10^6/uL (4.38-5.82); RED CELL DISTRIBUTION WIDTH 15.3 % (9.4-14.8)
[2018-06-02 06:24] LABS: BASOPHILS # (AUTO) 0.05 x10^3/uL (0-0.1); BASOPHILS % (AUTO) 1 % (0-1); EOSINOPHILS # (AUTO) 0.29 x10^3/uL (0-0.4); EOSINOPHILS % (AUTO) 4 % (1-7); LYMPHOCYTES # (AUTO) 2.05 x10^3/uL (1-3.4); LYMPHOCYTES % (AUTO) 31 % (22-44); MD SCAN; MONOCYTES # (AUTO) 0.44 x10^3/uL (0.2-0.8); MONOCYTES % (AUTO) 7 % (2-9); NEUTROPHILS # (AUTO) 3.89 x10^3/uL (1.8-6.8); NEUTROPHILS % (AUTO) 58 % (42-75)
[2018-06-02 06:27] LABS: CHLORIDE 99 mmol/L (98-107)
[2018-06-02 06:40] LABS: ANION GAP 5 mmol/L (5-15); CREATININE 0.88 mg/dL (0.7-1.3)
[2018-06-02 06:41] LABS: ALANINE AMINOTRANSFERASE 70 U/L (12-78); ALBUMIN 3.1 g/dL (3.4-5.0); ALKALINE PHOSPHATASE 108 U/L (45-117); BILIRUBIN,TOTAL 1.6 mg/dL (0.2-1.0); TOTAL PROTEIN 8.9 g/dL (6.4-8.2)
[2018-06-02 07:47] VITALS: BP 106/70
[2018-06-02] MEDS: SPIRONOLACTONE 25 MG TABLET PO SCH (09:03)
[2018-06-02] MEDS: ERTAPENEM 1 GM in SODIUM CHLORIDE 0.9% 50 ML IV SCH (11:00)
== END 2018-06-02 12:13 | disposition home health service (06) | DRG 871 ==
LOC: ED 06:36 → EDIP 06:47 → 5SO 07:20 → CCU 13:55 → 4EST 05-16 17:25 → CCU 05-18 14:41 → 5SO 05-23 06:35 → 4NOR 05-25 18:30 → 3NE 05-31 13:55
PROVIDERS: ADMIT Hospitalist; ATTEND Family Medicine
PROC: 5A1945Z Respiratory Ventilation, 24-96 Consecutive Hours (ICD-10-PCS; principal; 2018-05-12)
PROC: 0BH17EZ Insertion of Endotracheal Airway into Trachea, Via Natural or Artificial Opening (ICD-10-PCS; 2018-05-12)
PROC: 5A09557 Assistance with Respiratory Ventilation, Greater than 96 Consecutive Hours, Continuous Positive Airway Pressure (ICD-10-PCS; 2018-05-15)
PROC: 0T9B70Z Drainage of Bladder with Drainage Device, Via Natural or Artificial Opening (ICD-10-PCS; 2018-05-18)
PROC: 03HY32Z Insertion of Monitoring Device into Upper Artery, Percutaneous Approach (ICD-10-PCS; 2018-05-18)
PROC: 4A133B1 Monitoring of Arterial Pressure, Peripheral, Percutaneous Approach (ICD-10-PCS; 2018-05-18)
PROC: 4A133J1 Monitoring of Arterial Pulse, Peripheral, Percutaneous Approach (ICD-10-PCS; 2018-05-18)
PROC: 02HV33Z Insertion of Infusion Device into Superior Vena Cava, Percutaneous Approach (ICD-10-PCS; 2018-05-18)
PROC: B548ZZA Ultrasonography of Superior Vena Cava, Guidance (ICD-10-PCS; 2018-05-18)
DX: A41.50 Gram-negative sepsis, unspecified (principal); J96.21 Acute and chronic respiratory failure with hypoxia; J96.22 Acute and chronic respiratory failure with hypercapnia; N17.0 Acute kidney failure with tubular necrosis; R65.21 Severe sepsis with septic shock; I50.43 Acute on chronic combined systolic (congestive) and diastolic (congestive) heart failure; E66.2 Morbid (severe) obesity with alveolar hypoventilation; E87.2 Acidosis; K76.6 Portal hypertension; N39.0 Urinary tract infection, site not specified; Z99.11 Dependence on respirator [ventilator] status; Z68.42 Body mass index [BMI] 45.0-49.9, adult; B96.20 Unspecified Escherichia coli [E. coli] as the cause of diseases classified elsewhere; E88.09 Other disorders of plasma-protein metabolism, not elsewhere classified; G47.33 Obstructive sleep apnea (adult) (pediatric); I07.1 Rheumatic tricuspid insufficiency; I27.21 Secondary pulmonary arterial hypertension; I27.81 Cor pulmonale (chronic); I50.82 Biventricular heart failure; K31.89 Other diseases of stomach and duodenum; Z79.01 Long term (current) use of anticoagulants; Z86.711 Personal history of pulmonary embolism; Z86.718 Personal history of other venous thrombosis and embolism; Z99.81 Dependence on supplemental oxygen; Z79.899 Other long term (current) drug therapy; Z23 Encounter for immunization
CPT/HCPCS: 36415; 36600; 82805; 84145; 99285; J3490; 71045; 71046; 76700; 76770; 80048; 80053; 80061; 80202; 80307; 81001; 82040; 82310; 82803; 82962; 83036; 83605; 83690; 83735; 83880; 84100; 84132; 84439; 84443; 84478; 84484; 85025; 87040; 87070; 87077; 87081; 87086; 87186; 87205; 90656; 93005; 93306; 93970; 94002; 94003; 94660; 94762; G0378; J0696; J1335; J1644; J1940; J2185; J2250; J2405; J2543; J2704; J3370; P9047; J1120; J3475; J7030; J7040; J7050

== ENCOUNTER 2019-07-13 04:03 | Inpatient (IN) | payer MEDICAID, OTHER ==
[~2019-07-13] VITALS: Ht 170.2 cm; Wt 114.7 kg
[~2019-07-13 04:03] MED LIST: ACET325T14 PO; RIVA20TA PO; SILD20TA PO; SPIR25TA PO
[2019-07-13] MEDS ORDERED: OXYCODONE (04:10)
[2019-07-13] MEDS ORDERED: PREDNISONE (04:10)
--- NOTE | 2019-07-13 04:17 | NUR ---
PT WHEELED TO ROOM AT THIS TIME FROM TRIAGE
--- NOTE | 2019-07-13 04:20 | NUR ---
34Y M PT HERE WITH COMPLAINT OF BILAT FOOT PAIN, SEEN AT [facility] 06/26 AND GIVEN RX FOR OXYCODONE AND PREDNISONE. PT SOMEWHAT POOR HISTORIAN, IS ABLE TO SAY THAT HE WAS DIAGNOSED WITH GOUT. PT STS CANNOT STAND OR BEND KNEES OR STRAIGHTEN LEGS AND CANNOT UNCROSS LEGS, PT UNCROSSED LEGS STOOD AND TRANSFERED SELF TO [facility] FROM WHEELCHAIR. PT CONNECTED TO MONITORING VSS, NADN, CALL LIGHT IN REACH
--- NOTE | 2019-07-13 04:27 | NUR ---
34Y M COMES IN W/ C/O LEG AND FOOT PAIN [id number]. WAS SEEN AT [facility] AND GIVEN PAIN MEDS. PT OUT OF PAIN MEDS AND IS HURTING AGAIN. PT CONNECTED TO MONITORING HANNAH MARTINEZ. CALL LIGHT IN REACH
[2019-07-13] MEDS ORDERED: ONDANSETRON 2MG/ML, 2ML ONE (04:50)
[2019-07-13] MEDS ORDERED: KETOROLAC 30 MG/1 ML ONE (04:50)
[2019-07-13] MEDS ORDERED: MORPHINE SULFATE 4 MG/ML, 1ML ONE (04:50)
[2019-07-13] MEDS ORDERED: SODIUM CHLORIDE FLUSH 10ML SYR IVF ONE (05:00)
[2019-07-13] MEDS ORDERED: ONDANSETRON 2MG/ML, 2ML IVPush ONE (05:00)
[2019-07-13] MEDS ORDERED: KETOROLAC 30 MG/1 ML IV ONE (05:00)
[2019-07-13] MEDS ORDERED: MORPHINE SULFATE 4 MG/ML, 1ML IVPush PRN (05:00)
--- NOTE | 2019-07-13 05:14 | NUR ---
PT MEDICATED PER MAR, PLACED ON 2L NC VSS, NADN
[2019-07-13 05:35] LABS: BASOPHILS # (AUTO) 0.19 x10^3/uL (0-0.1); BASOPHILS % (AUTO) 2 % (0-1); EOSINOPHILS # (AUTO) 0.21 x10^3/uL (0-0.4); EOSINOPHILS % (AUTO) 2 % (1-7); LYMPHOCYTES # (AUTO) 1.69 x10^3/uL (1-3.4); LYMPHOCYTES % (AUTO) 18 % (22-44); MD NO; MEAN CORPUSCULAR HEMOGLOBIN 28.5 pg (27.5-34.5); MEAN CORPUSCULAR VOLUME 86.3 fL (81-97); MEAN PLATELET VOLUME 9.9 fL (7.4-10.4); MONOCYTES # (AUTO) 0.54 x10^3/uL (0.2-0.8); MONOCYTES % (AUTO) 6 % (2-9); NEUTROPHILS # (AUTO) 6.89 x10^3/uL (1.8-6.8); NEUTROPHILS % (AUTO) 72 % (42-75); PLATELET COUNT 215 x10^3/uL (130-400); RED BLOOD COUNT 4.12 x10^6/uL (4.38-5.82); RED CELL DISTRIBUTION WIDTH 14.3 % (9.4-14.8)
[2019-07-13 05:38] LABS: ALBUMIN 2.6 g/dL (3.4-5.0); ANION GAP 3 mmol/L (5-15); CALCIUM 8.7 mg/dL (8.5-10.1); CHLORIDE 107 mmol/L (98-107)
[2019-07-13 05:40] LABS: CREATININE 0.96 mg/dL (0.7-1.3)
[2019-07-13 05:44] LABS: HCT (SEDRATE) 35.6 % (39.2-51.8)
--- NOTE | 2019-07-13 05:53 | NUR ---
PT SLEEPING ON GURNEY, RESP EVEN AND UNLABORED, NADN.
--- NOTE | 2019-07-13 06:51 | NUR ---
REPORT RECEIVED FROM TODD SMITH. PT RESTING ON Medium. CONNECTED TO MONITOR.
--- NOTE | 2019-07-13 07:18 | NUR ---
PT PROVIDED WITH URINAL- AWARE THAT A URINE SAMPLE IS NEEDED. PROVIDED WITH WARM BLANKET. AWARE OF POC. DENIES FURTHER NEEDS. CONNECTED TO MONITOR. VSS. NADN.
--- NOTE | 2019-07-13 08:23 | NUR ---
PT RESTING ON [employer]. HANNAH. CONNECTED TO MONITOR. VSS.
[2019-07-13] MEDS ORDERED: ONDANSETRON ODT 4 MG PO PRN (08:30)
[2019-07-13] MEDS ORDERED: ONDANSETRON 2MG/ML, 2ML IVPush PRN (08:30)
--- NOTE | 2019-07-13 08:38 | NUR ---
REPORT GIVEN TO TODD SALDANA.
[2019-07-13 09:06] LABS: % IRON SATURATION 23 % (20-55); IRON LEVEL 56 mcg/dL (65-175); TOTAL IRON BINDING CAPACITY 245 mcg/dL (250-450)
[2019-07-13] MEDS ORDERED: PLEASE ENTER WEIGHT MC SCH (09:30)
[2019-07-13] MEDS: ACETAMINOPHEN 325 MG TABLET PO SCH ×3 (10:35→20:48)
[2019-07-13] MEDS: SPIRONOLACTONE 25 MG TABLET PO SCH (10:35)
[2019-07-13] MEDS: ALLOPURINOL 100 MG TABLET PO SCH (10:35)
[2019-07-13] MEDS: RIVAROXABAN 20 MG TABLET PO SCH (10:36)
[2019-07-13 10:42] VITALS: BP 101/66
[2019-07-13 13:03] VITALS: BP 95/60
[2019-07-13] MEDS: SILDENAFIL 20 MG TABLET PO SCH ×2 (13:07→20:48)
[2019-07-13] MEDS: IBUPROFEN 600 MG TABLET PO PRN (17:45)
[2019-07-13 18:12] LABS: MICROSCOPIC AUTO
[2019-07-13 18:13] LABS: CULTURE INDICATED? YES
[2019-07-13 20:41] VITALS: BP 108/68
[2019-07-14] VITALS (7 sets, daily range): BP systolic 97–121; BP diastolic 57–84
[2019-07-14] MEDS: ACETAMINOPHEN 325 MG TABLET PO SCH ×4 (04:30→22:20)
[2019-07-14] MEDS: SILDENAFIL 20 MG TABLET PO SCH ×3 (06:02→22:18)
[2019-07-14] MEDS: SPIRONOLACTONE 25 MG TABLET PO SCH ×2 (09:00→09:53)
[2019-07-14] MEDS: ALLOPURINOL 100 MG TABLET PO SCH (09:53)
[2019-07-14] MEDS: RIVAROXABAN 20 MG TABLET PO SCH (09:53)
[2019-07-14 15:26] LABS: C-REACTIVE PROTEIN, QUANT 5.8 mg/dL (0.02-0.49)
[2019-07-14] MEDS: IBUPROFEN 600 MG TABLET PO PRN (17:06)
[2019-07-14] MEDS: OXYcodone/APAP 5/325MG TABLET PO PRN (21:09)
[2019-07-15 02:18] VITALS: BP 101/59
[2019-07-15] MEDS: ACETAMINOPHEN 325 MG TABLET PO SCH ×3 (04:22→19:53)
[2019-07-15] MEDS: IBUPROFEN 600 MG TABLET PO PRN ×2 (05:16→16:50)
[2019-07-15 06:14] VITALS: BP 111/75
[2019-07-15 09:17] VITALS: BP 111/74
[2019-07-15] MEDS: ALLOPURINOL 100 MG TABLET PO SCH (09:19)
[2019-07-15] MEDS: SPIRONOLACTONE 25 MG TABLET PO SCH (09:19)
[2019-07-15] MEDS: RIVAROXABAN 20 MG TABLET PO SCH (09:19)
[2019-07-15] MEDS: SILDENAFIL 20 MG TABLET PO SCH ×3 (09:19→22:00)
[2019-07-15 14:37] VITALS: BP 116/77
[2019-07-15] MEDS: OXYcodone/APAP 5/325MG TABLET PO PRN (14:39)
[2019-07-15 16:56] LABS: ANA SCREEN NEGATIVE (Negative)
[2019-07-15] MEDS ORDERED: GADOTERATE 2.5 MMOL/5 ML VIAL ONE (17:10)
[2019-07-15] MEDS ORDERED: GADOTERATE 10 MMOL/20 ML SYR ONE (17:10)
[2019-07-15 20:08] VITALS: BP 100/67
[2019-07-15 22:00] VITALS: BP 96/63
[2019-07-16] MEDS: ACETAMINOPHEN 325 MG TABLET PO SCH ×4 (01:11→20:48)
[2019-07-16 01:34] VITALS: BP 97/49
[2019-07-16 05:46] VITALS: BP 95/63
[2019-07-16] MEDS: SILDENAFIL 20 MG TABLET PO SCH ×3 (05:49→20:48)
[2019-07-16 07:08] VITALS: BP 105/64
[2019-07-16] MEDS: RIVAROXABAN 20 MG TABLET PO SCH (08:36)
[2019-07-16] MEDS: SPIRONOLACTONE 25 MG TABLET PO SCH (08:36)
[2019-07-16] MEDS: ALLOPURINOL 100 MG TABLET PO SCH (08:37)
[2019-07-16] MEDS: IBUPROFEN 600 MG TABLET PO PRN (10:55)
[2019-07-16 12:42] VITALS: BP 123/80
[2019-07-16] MEDS ORDERED: POLYETHYLENE GLYCOL 17 GM PACKET PO PRN (13:30)
[2019-07-16] MEDS ORDERED: COLCHICINE 0.6 MG CAPSULE PO ONE (15:30)
[2019-07-16] MEDS: GABAPENTIN 100 MG CAPSULE PO SCH ×2 (17:42→20:48)
[2019-07-16 19:25] VITALS: BP 105/67
[2019-07-16] MEDS: COLCHICINE 0.6 MG CAPSULE PO SCH (20:48)
[2019-07-16] MEDS: DOCUSATE 100 MG CAPSULE PO SCH (20:48)
[2019-07-17] MEDS: ACETAMINOPHEN 325 MG TABLET PO SCH ×4 (01:00→18:11)
[2019-07-17 01:05] VITALS: BP 102/67
[2019-07-17 05:26] LABS: BASOPHILS # (AUTO) 0.06 x10^3/uL (0-0.1); BASOPHILS % (AUTO) 1 % (0-1); EOSINOPHILS # (AUTO) 0.25 x10^3/uL (0-0.4); EOSINOPHILS % (AUTO) 3 % (1-7); LYMPHOCYTES # (AUTO) 1.63 x10^3/uL (1-3.4); LYMPHOCYTES % (AUTO) 20 % (22-44); MD NO; MEAN CORPUSCULAR HEMOGLOBIN 28.9 pg (27.5-34.5); MEAN CORPUSCULAR HGB CONC 33.5 g/dL (33.2-36.2); MEAN CORPUSCULAR VOLUME 86.3 fL (81-97); MEAN PLATELET VOLUME 9.4 fL (7.4-10.4); MONOCYTES # (AUTO) 0.41 x10^3/uL (0.2-0.8); MONOCYTES % (AUTO) 5 % (2-9); NEUTROPHILS # (AUTO) 5.69 x10^3/uL (1.8-6.8); NEUTROPHILS % (AUTO) 71 % (42-75); PLATELET COUNT 220 x10^3/uL (130-400); RED BLOOD COUNT 4.23 x10^6/uL (4.38-5.82); RED CELL DISTRIBUTION WIDTH 14.3 % (9.4-14.8)
[2019-07-17] MEDS: SILDENAFIL 20 MG TABLET PO SCH ×3 (05:26→21:09)
[2019-07-17 05:35] LABS: ALANINE AMINOTRANSFERASE 23 U/L (12-78); ALBUMIN 2.5 g/dL (3.4-5.0); ANION GAP 3 mmol/L (5-15); CALCIUM 8.9 mg/dL (8.5-10.1); CHLORIDE 105 mmol/L (98-107)
[2019-07-17 05:38] LABS: ALKALINE PHOSPHATASE 84 U/L (45-117); BILIRUBIN,TOTAL 1.1 mg/dL (0.2-1.0); CREATININE 0.94 mg/dL (0.7-1.3)
[2019-07-17 07:55] VITALS: BP 88/60
[2019-07-17] MEDS: DOCUSATE 100 MG CAPSULE PO SCH ×2 (09:31→21:00)
[2019-07-17] MEDS: ALLOPURINOL 100 MG TABLET PO SCH (09:31)
[2019-07-17] MEDS: COLCHICINE 0.6 MG CAPSULE PO SCH ×2 (09:31→21:09)
[2019-07-17] MEDS: RIVAROXABAN 20 MG TABLET PO SCH (09:31)
[2019-07-17] MEDS: GABAPENTIN 100 MG CAPSULE PO SCH ×3 (09:31→21:09)
[2019-07-17] MEDS: SPIRONOLACTONE 25 MG TABLET PO SCH (09:32)
[2019-07-17 14:02] VITALS: BP 83/57
[2019-07-17 15:32] VITALS: BP 100/68
[2019-07-17 16:05] VITALS: BP 115/75
[2019-07-17 16:26] LABS: TROPONIN I < 0.015 ng/mL (0.000-0.045)
[2019-07-17] MEDS ORDERED: OMNIPAQUE 350 MG/ML, 100ML BOTTLE ONE (17:28)
[2019-07-17 18:08] VITALS: BP 105/54
[2019-07-17 22:09] LABS: TROPONIN I < 0.015 ng/mL (0.000-0.045)
[2019-07-18] MEDS: ACETAMINOPHEN 325 MG TABLET PO SCH ×4 (02:26→17:56)
[2019-07-18 02:27] VITALS: BP 99/65
[2019-07-18 03:23] LABS: TROPONIN I < 0.015 ng/mL (0.000-0.045)
[2019-07-18] MEDS: SILDENAFIL 20 MG TABLET PO SCH ×3 (06:51→22:15)
[2019-07-18 08:02] VITALS: BP 104/70
[2019-07-18] MEDS: DOCUSATE 100 MG CAPSULE PO SCH ×2 (08:58→22:15)
[2019-07-18] MEDS: COLCHICINE 0.6 MG CAPSULE PO SCH (08:58)
[2019-07-18] MEDS: SPIRONOLACTONE 25 MG TABLET PO SCH (08:58)
[2019-07-18] MEDS: RIVAROXABAN 20 MG TABLET PO SCH (08:58)
[2019-07-18] MEDS: GABAPENTIN 100 MG CAPSULE PO SCH ×3 (08:58→22:15)
[2019-07-18 12:47] VITALS: BP 111/72
[2019-07-18] MEDS: ALLOPURINOL 100 MG TABLET PO SCH (12:56)
[2019-07-18 20:13] VITALS: BP 106/51
[2019-07-19 01:04] VITALS: BP 115/69
[2019-07-19] MEDS: ACETAMINOPHEN 325 MG TABLET PO SCH ×4 (01:09→19:00)
[2019-07-19] MEDS: SILDENAFIL 20 MG TABLET PO SCH ×3 (05:43→21:57)
[2019-07-19 08:00] VITALS: BP 100/64
[2019-07-19] MEDS: SPIRONOLACTONE 25 MG TABLET PO SCH (08:12)
[2019-07-19] MEDS: RIVAROXABAN 20 MG TABLET PO SCH (08:13)
[2019-07-19] MEDS: GABAPENTIN 100 MG CAPSULE PO SCH ×3 (08:13→21:58)
[2019-07-19] MEDS: DOCUSATE 100 MG CAPSULE PO SCH ×2 (08:13→21:58)
[2019-07-19] MEDS: ALLOPURINOL 100 MG TABLET PO SCH (08:13)
[2019-07-19] MEDS: COLCHICINE 0.6 MG CAPSULE PO SCH (10:07)
[2019-07-19 14:48] VITALS: BP 104/70
[2019-07-19 19:50] VITALS: BP 110/74
[2019-07-19] MEDS: IBUPROFEN 600 MG TABLET PO PRN (21:57)
[2019-07-20] MEDS: ACETAMINOPHEN 325 MG TABLET PO SCH ×5 (00:33→22:12)
[2019-07-20 01:02] VITALS: BP 101/60
[2019-07-20] MEDS: IBUPROFEN 600 MG TABLET PO PRN ×2 (05:50→22:14)
[2019-07-20] MEDS: SILDENAFIL 20 MG TABLET PO SCH ×3 (05:50→22:07)
[2019-07-20] MEDS ORDERED: MAGNESIUM CITRATE 300ML ORAL SOL PO ONE (08:00)
[2019-07-20] MEDS ORDERED: BISACODYL 10 MG SUPP PR ONE (08:00)
[2019-07-20] MEDS: RIVAROXABAN 20 MG TABLET PO SCH (08:38)
[2019-07-20] MEDS: DOCUSATE 100 MG CAPSULE PO SCH ×2 (08:38→19:52)
[2019-07-20] MEDS: ALLOPURINOL 100 MG TABLET PO SCH (08:38)
[2019-07-20] MEDS: SPIRONOLACTONE 25 MG TABLET PO SCH (08:38)
[2019-07-20] MEDS: COLCHICINE 0.6 MG CAPSULE PO SCH (08:38)
[2019-07-20] MEDS: GABAPENTIN 100 MG CAPSULE PO SCH ×3 (08:38→19:50)
[2019-07-20 08:42] VITALS: BP 122/88
[2019-07-20 13:03] VITALS: BP 119/84
[2019-07-20] MEDS: SENNA/DOCUSATE TABLET PO SCH (19:52)
[2019-07-20 19:58] VITALS: BP 105/75
[2019-07-21 00:52] VITALS: BP 139/75
[2019-07-21] MEDS: SILDENAFIL 20 MG TABLET PO SCH ×3 (06:23→22:16)
[2019-07-21 07:44] VITALS: BP 100/63
[2019-07-21] MEDS: DOCUSATE 100 MG CAPSULE PO SCH ×2 (09:00→21:00)
[2019-07-21] MEDS: ALLOPURINOL 100 MG TABLET PO SCH (09:10)
[2019-07-21] MEDS: IBUPROFEN 600 MG TABLET PO PRN (09:10)
[2019-07-21] MEDS: RIVAROXABAN 20 MG TABLET PO SCH (09:10)
[2019-07-21] MEDS: COLCHICINE 0.6 MG CAPSULE PO SCH (09:10)
[2019-07-21] MEDS: ACETAMINOPHEN 325 MG TABLET PO SCH ×3 (09:10→17:49)
[2019-07-21] MEDS: SPIRONOLACTONE 25 MG TABLET PO SCH (09:11)
[2019-07-21] MEDS: GABAPENTIN 100 MG CAPSULE PO SCH ×3 (09:11→22:16)
[2019-07-21] MEDS ORDERED: GABA-826 PO (10:23)
[2019-07-21] MEDS ORDERED: COLC0.6C3 PO (10:23)
[2019-07-21] MEDS ORDERED: SENN-193 PO (10:23)
[2019-07-21] MEDS ORDERED: IBUP-1222 PO (10:23)
[2019-07-21] MEDS ORDERED: ALLO100T30 PO (10:23)
[2019-07-21] MEDS ORDERED: FLU VACC QS2019-20 36MOS UP/PF 0.5 ML IM-VACC ONE (11:30)
[2019-07-21 14:50] VITALS: BP 99/54
[2019-07-21 19:28] VITALS: BP 105/59
[2019-07-21] MEDS: SENNA/DOCUSATE TABLET PO SCH (21:00)
[2019-07-22] MEDS: ACETAMINOPHEN 325 MG TABLET PO SCH ×4 (00:21→19:25)
[2019-07-22 01:10] VITALS: BP 101/58
[2019-07-22] MEDS: SILDENAFIL 20 MG TABLET PO SCH ×3 (05:42→21:09)
[2019-07-22 07:56] VITALS: BP 104/72
[2019-07-22] MEDS: DOCUSATE 100 MG CAPSULE PO SCH ×2 (09:00→21:00)
[2019-07-22] MEDS: ALLOPURINOL 100 MG TABLET PO SCH (09:10)
[2019-07-22] MEDS: GABAPENTIN 100 MG CAPSULE PO SCH ×3 (09:10→21:09)
[2019-07-22] MEDS: RIVAROXABAN 20 MG TABLET PO SCH (09:10)
[2019-07-22] MEDS: SPIRONOLACTONE 25 MG TABLET PO SCH (09:10)
[2019-07-22] MEDS: COLCHICINE 0.6 MG CAPSULE PO SCH (09:11)
[2019-07-22] MEDS: IBUPROFEN 600 MG TABLET PO PRN (11:57)
[2019-07-22 13:22] VITALS: BP 138/87
[2019-07-22 19:56] VITALS: BP 95/64
[2019-07-22] MEDS: SENNA/DOCUSATE TABLET PO SCH (21:00)
[2019-07-23] MEDS: ACETAMINOPHEN 325 MG TABLET PO SCH ×4 (01:02→20:25)
[2019-07-23 01:41] VITALS: BP 105/71
[2019-07-23] MEDS: SILDENAFIL 20 MG TABLET PO SCH ×3 (06:17→21:42)
[2019-07-23 08:18] VITALS: BP 103/70
[2019-07-23] MEDS: DOCUSATE 100 MG CAPSULE PO SCH ×2 (09:00→21:42)
[2019-07-23] MEDS: RIVAROXABAN 20 MG TABLET PO SCH (10:02)
[2019-07-23] MEDS: COLCHICINE 0.6 MG CAPSULE PO SCH (10:02)
[2019-07-23] MEDS: GABAPENTIN 100 MG CAPSULE PO SCH ×3 (10:02→21:42)
[2019-07-23] MEDS: SPIRONOLACTONE 25 MG TABLET PO SCH (10:03)
[2019-07-23] MEDS: ALLOPURINOL 100 MG TABLET PO SCH (10:03)
[2019-07-23 15:03] VITALS: BP 106/71
[2019-07-23 19:21] VITALS: BP 112/73
[2019-07-23] MEDS: SENNA/DOCUSATE TABLET PO SCH (21:42)
[2019-07-24 01:57] VITALS: BP 106/72
[2019-07-24] MEDS: ACETAMINOPHEN 325 MG TABLET PO SCH ×4 (02:05→20:26)
[2019-07-24] MEDS: SILDENAFIL 20 MG TABLET PO SCH ×3 (05:12→21:46)
[2019-07-24] MEDS: SPIRONOLACTONE 25 MG TABLET PO SCH (08:44)
[2019-07-24] MEDS: DOCUSATE 100 MG CAPSULE PO SCH ×2 (08:44→20:26)
[2019-07-24] MEDS: RIVAROXABAN 20 MG TABLET PO SCH (08:44)
[2019-07-24] MEDS: GABAPENTIN 100 MG CAPSULE PO SCH ×3 (08:44→20:26)
[2019-07-24] MEDS: COLCHICINE 0.6 MG CAPSULE PO SCH (08:44)
[2019-07-24] MEDS: ALLOPURINOL 100 MG TABLET PO SCH (08:44)
[2019-07-24 09:59] VITALS: BP 90/48
[2019-07-24 15:37] VITALS: BP 108/68
[2019-07-24 19:45] VITALS: BP 120/78
[2019-07-24] MEDS: SENNA/DOCUSATE TABLET PO SCH (20:26)
[2019-07-25 01:53] VITALS: BP 98/66
[2019-07-25] MEDS: ACETAMINOPHEN 325 MG TABLET PO SCH ×4 (02:26→22:04)
[2019-07-25] MEDS: SILDENAFIL 20 MG TABLET PO SCH ×3 (05:40→22:01)
[2019-07-25] MEDS: COLCHICINE 0.6 MG CAPSULE PO SCH (09:00)
[2019-07-25] MEDS: ALLOPURINOL 100 MG TABLET PO SCH (09:00)
[2019-07-25] MEDS: GABAPENTIN 100 MG CAPSULE PO SCH ×3 (09:00→22:03)
[2019-07-25] MEDS: DOCUSATE 100 MG CAPSULE PO SCH ×2 (09:00→22:03)
[2019-07-25] MEDS: RIVAROXABAN 20 MG TABLET PO SCH (09:00)
[2019-07-25 09:01] VITALS: BP 102/72
[2019-07-25] MEDS: SPIRONOLACTONE 25 MG TABLET PO SCH (09:01)
[2019-07-25 17:04] VITALS: BP 105/66
[2019-07-25 21:29] VITALS: BP 112/75
[2019-07-25] MEDS: SENNA/DOCUSATE TABLET PO SCH (22:03)
[2019-07-26 03:06] VITALS: BP 109/73
[2019-07-26] MEDS: SILDENAFIL 20 MG TABLET PO SCH ×3 (05:30→20:51)
[2019-07-26] MEDS: ACETAMINOPHEN 325 MG TABLET PO SCH ×3 (05:30→18:33)
[2019-07-26] MEDS: GABAPENTIN 100 MG CAPSULE PO SCH ×3 (08:28→20:51)
[2019-07-26] MEDS: RIVAROXABAN 20 MG TABLET PO SCH (08:28)
[2019-07-26] MEDS: ALLOPURINOL 100 MG TABLET PO SCH (08:28)
[2019-07-26] MEDS: DOCUSATE 100 MG CAPSULE PO SCH ×2 (08:29→20:52)
[2019-07-26] MEDS: SPIRONOLACTONE 25 MG TABLET PO SCH (08:29)
[2019-07-26] MEDS: COLCHICINE 0.6 MG CAPSULE PO SCH (08:29)
[2019-07-26 09:20] VITALS: BP 101/69
[2019-07-26 13:02] VITALS: BP 111/73
[2019-07-26 20:34] VITALS: BP 110/76
[2019-07-26] MEDS: SENNA/DOCUSATE TABLET PO SCH (20:52)
[2019-07-26] MEDS: IBUPROFEN 600 MG TABLET PO PRN (20:57)
[2019-07-27] MEDS: ACETAMINOPHEN 325 MG TABLET PO SCH ×4 (01:07→21:27)
[2019-07-27 01:50] VITALS: BP 106/65
[2019-07-27] MEDS: SILDENAFIL 20 MG TABLET PO SCH ×3 (06:28→21:28)
[2019-07-27] MEDS: DOCUSATE 100 MG CAPSULE PO SCH ×2 (09:00→21:00)
[2019-07-27 09:27] VITALS: BP 118/73
[2019-07-27] MEDS: COLCHICINE 0.6 MG CAPSULE PO SCH (09:50)
[2019-07-27] MEDS: GABAPENTIN 100 MG CAPSULE PO SCH ×3 (09:50→21:27)
[2019-07-27] MEDS: ALLOPURINOL 100 MG TABLET PO SCH (09:50)
[2019-07-27] MEDS: RIVAROXABAN 20 MG TABLET PO SCH (09:50)
[2019-07-27] MEDS: SPIRONOLACTONE 25 MG TABLET PO SCH (09:50)
[2019-07-27 14:42] VITALS: BP 106/72
[2019-07-27 20:00] VITALS: BP 119/67
[2019-07-27] MEDS: SENNA/DOCUSATE TABLET PO SCH (21:00)
[2019-07-28 02:38] VITALS: BP 110/62
[2019-07-28] MEDS: ACETAMINOPHEN 325 MG TABLET PO SCH ×4 (03:30→20:49)
[2019-07-28] MEDS: IBUPROFEN 600 MG TABLET PO PRN ×2 (06:19→15:18)
[2019-07-28] MEDS: SILDENAFIL 20 MG TABLET PO SCH ×3 (06:19→21:44)
[2019-07-28] MEDS: DOCUSATE 100 MG CAPSULE PO SCH ×2 (09:00→20:49)
[2019-07-28 09:22] VITALS: BP 104/70
[2019-07-28] MEDS: SPIRONOLACTONE 25 MG TABLET PO SCH (10:26)
[2019-07-28] MEDS: RIVAROXABAN 20 MG TABLET PO SCH (10:26)
[2019-07-28] MEDS: COLCHICINE 0.6 MG CAPSULE PO SCH (10:26)
[2019-07-28] MEDS: GABAPENTIN 300 MG CAPSULE PO SCH ×3 (10:27→20:49)
[2019-07-28] MEDS: ALLOPURINOL 100 MG TABLET PO SCH (10:27)
[2019-07-28 13:53] VITALS: BP 106/70
[2019-07-28 19:54] VITALS: BP_SYST 125; BP_SYST 94; BP_DIAS 61; BP_DIAS 69
[2019-07-28] MEDS: SENNA/DOCUSATE TABLET PO SCH (20:49)
[2019-07-29 02:03] VITALS: BP 109/72
[2019-07-29] MEDS: ACETAMINOPHEN 325 MG TABLET PO SCH ×4 (02:54→20:36)
[2019-07-29] MEDS: SILDENAFIL 20 MG TABLET PO SCH ×3 (05:38→22:52)
[2019-07-29 07:52] VITALS: BP 114/66
[2019-07-29] MEDS: SPIRONOLACTONE 25 MG TABLET PO SCH (09:40)
[2019-07-29] MEDS: GABAPENTIN 300 MG CAPSULE PO SCH ×3 (09:40→20:36)
[2019-07-29] MEDS: DOCUSATE 100 MG CAPSULE PO SCH ×2 (09:40→21:00)
[2019-07-29] MEDS: RIVAROXABAN 20 MG TABLET PO SCH (09:40)
[2019-07-29] MEDS: COLCHICINE 0.6 MG CAPSULE PO SCH (09:40)
[2019-07-29] MEDS: ALLOPURINOL 100 MG TABLET PO SCH (09:40)
[2019-07-29] MEDS: IBUPROFEN 600 MG TABLET PO PRN (12:49)
[2019-07-29 14:14] VITALS: BP 105/68
[2019-07-29 20:38] VITALS: BP 106/68
[2019-07-29] MEDS: SENNA/DOCUSATE TABLET PO SCH (21:00)
[2019-07-30] MEDS: ACETAMINOPHEN 325 MG TABLET PO SCH ×4 (02:53→20:31)
[2019-07-30 02:55] VITALS: BP 106/73
[2019-07-30] MEDS: SILDENAFIL 20 MG TABLET PO SCH ×3 (05:58→22:48)
[2019-07-30 09:01] VITALS: BP 118/73
[2019-07-30] MEDS ORDERED: predniSONE 50MG TABLET ONE (09:43)
[2019-07-30] MEDS: RIVAROXABAN 20 MG TABLET PO SCH (09:51)
[2019-07-30] MEDS: SPIRONOLACTONE 25 MG TABLET PO SCH (09:52)
[2019-07-30] MEDS: DOCUSATE 100 MG CAPSULE PO SCH ×2 (09:52→20:31)
[2019-07-30] MEDS: COLCHICINE 0.6 MG CAPSULE PO SCH (09:52)
[2019-07-30] MEDS: ALLOPURINOL 100 MG TABLET PO SCH (09:52)
[2019-07-30] MEDS: GABAPENTIN 300 MG CAPSULE PO SCH (09:52)
[2019-07-30] MEDS: IBUPROFEN 600 MG TABLET PO PRN (11:44)
[2019-07-30 14:19] VITALS: BP 128/77
[2019-07-30] MEDS: GABAPENTIN 100 MG CAPSULE PO SCH ×2 (17:27→22:47)
[2019-07-30 20:31] VITALS: BP 123/82
[2019-07-30] MEDS: SENNA/DOCUSATE TABLET PO SCH (20:31)
[2019-07-31 01:13] VITALS: BP 102/69
[2019-07-31] MEDS: ACETAMINOPHEN 325 MG TABLET PO SCH ×4 (03:13→21:05)
[2019-07-31] MEDS: SILDENAFIL 20 MG TABLET PO SCH ×3 (06:02→21:04)
[2019-07-31] MEDS: GABAPENTIN 100 MG CAPSULE PO SCH ×3 (08:18→21:04)
[2019-07-31] MEDS: DOCUSATE 100 MG CAPSULE PO SCH ×2 (08:19→21:05)
[2019-07-31] MEDS: ALLOPURINOL 100 MG TABLET PO SCH (08:19)
[2019-07-31] MEDS: RIVAROXABAN 20 MG TABLET PO SCH (08:19)
[2019-07-31] MEDS: SPIRONOLACTONE 25 MG TABLET PO SCH (08:19)
[2019-07-31] MEDS: COLCHICINE 0.6 MG CAPSULE PO SCH (08:19)
[2019-07-31 08:50] VITALS: BP 118/80
[2019-07-31 10:24] VITALS: BP 118/80
[2019-07-31] MEDS: IBUPROFEN 600 MG TABLET PO PRN (13:27)
[2019-07-31 15:10] VITALS: BP 107/66
[2019-07-31 18:27] VITALS: BP 124/88
[2019-07-31] MEDS: SENNA/DOCUSATE TABLET PO SCH (21:04)
[2019-08-01 02:21] VITALS: BP 109/69
[2019-08-01] MEDS: ACETAMINOPHEN 325 MG TABLET PO SCH ×3 (03:13→15:47)
[2019-08-01] MEDS: SILDENAFIL 20 MG TABLET PO SCH (06:01)
[2019-08-01] MEDS: DOCUSATE 100 MG CAPSULE PO SCH ×2 (09:00→09:14)
[2019-08-01] MEDS: ALLOPURINOL 100 MG TABLET PO SCH (09:14)
[2019-08-01] MEDS: SPIRONOLACTONE 25 MG TABLET PO SCH (09:14)
[2019-08-01] MEDS: COLCHICINE 0.6 MG CAPSULE PO SCH (09:15)
[2019-08-01] MEDS: GABAPENTIN 100 MG CAPSULE PO SCH ×2 (09:15→15:47)
[2019-08-01] MEDS: RIVAROXABAN 20 MG TABLET PO SCH (09:15)
[2019-08-01 13:41] VITALS: BP 104/64
[2019-08-01] MEDS ORDERED: PRED20TA PO (15:27)
== END 2019-08-01 18:30 | disposition home health service (06) | DRG 351 ==
LOC: ED 06:46 → EDIP 07:51 → INTOOBSV 07:51 → 3N 08:56 → OBSVTOIN 14:23 → 5SO 07-17 16:09 → 4WST 07-19 01:16 → 5SO 07-22 06:25 → 3N 07-22 14:27
PROVIDERS: ADMIT Internal Medicine; ATTEND Internal Medicine
DX: M1A.09X0 Idiopathic chronic gout, multiple sites, without tophus (tophi) (principal); Z99.11 Dependence on respirator [ventilator] status; J96.10 Chronic respiratory failure, unspecified whether with hypoxia or hypercapnia; D50.9 Iron deficiency anemia, unspecified; E66.9 Obesity, unspecified; G47.30 Sleep apnea, unspecified; K59.00 Constipation, unspecified; M13.0 Polyarthritis, unspecified; I27.21 Secondary pulmonary arterial hypertension; E87.1 Hypo-osmolality and hyponatremia; G62.9 Polyneuropathy, unspecified; Z79.01 Long term (current) use of anticoagulants; Z86.718 Personal history of other venous thrombosis and embolism; Z68.39 Body mass index [BMI] 39.0-39.9, adult; Z99.81 Dependence on supplemental oxygen
CPT/HCPCS: 36415; 71045; 71275; 72157; 72158; 80048; 80053; 81001; 82040; 82550; 82565; 82607; 82728; 83540; 83550; 83735; 84145; 84443; 84484; 84550; 84560; 85014; 85018; 85025; 85651; 86038; 86140; 86430; 86850; 86900; 87040; 87086; 87491; 87591; 90686; 93005; 93306; G0378; J1885; J2405; Q9967; A9575; J2270; J7512

== ENCOUNTER 2020-01-01 23:09 | Inpatient (IN) | payer MEDICAID, OTHER ==
[~2020-01-01] VITALS: Ht 170.2 cm; Wt 124.6 kg
[~2020-01-01 23:09] MED LIST changes: +ALLO100T30 PO; +COLC0.6C3 PO; +GABA-826 PO; +IBUP-1222 PO; +OXYCODONE; +PRED20TA PO; +PREDNISONE; +SENN-193 PO
--- NOTE | 2020-01-01 23:43 | NUR ---
THIS IS A 34 YO MALE COMING IN FOR BILATERAL LOWER LEG SWELLING INCREASING OVER THE PAST FEW WEEKS. PATIENT WAS HOSPITALIZED HERE IN JULY 2019, DIAGNOSED WITH CHF. PATIENT STATES HE WAS PRESCRIBED LASIX "YEARS AGO", BUT HAS NOT BEEN TAKING IT FOR THE PAST COUPLE YEARS. PEDAL PULSES PRESENT VIA DOPPLER, CAP REFILL AT 3 SECONDS. PATIENT C/O SHORTNESS OF BREATH, INCREASING WITH EXERTION. AFTER TRANSFERRING FROM WHEELCHAIR TO [facility] PATIENT WAS AT 83% RA, PLACED ON 3L NC TO MAINTAIN SPO2 >90%. MD ASAD TO BEDSIDE AT THIS TIME. ALL MONITORING IN PLACE, SINUS TACHYCARDIC ON MONITOR. CALL LIGHT IN REACH. AWAITING FURTHER ORDERS.
--- NOTE | 2020-01-01 23:49 | NUR ---
PATIENT NONCOMPLIANT WITH MEDICATIONS
--- NOTE | 2020-01-01 23:50 | NUR ---
PATIENT TO ULTRASOUND
[2020-01-02 00:03] LABS: MEAN CORPUSCULAR HEMOGLOBIN 27.6 pg (27.5-34.5); MEAN CORPUSCULAR HGB CONC 31.2 g/dL (33.2-36.2); RED BLOOD COUNT 6.15 x10^6/uL (4.38-5.82); RED CELL DISTRIBUTION WIDTH 19.5 % (9.4-14.8)
[2020-01-02 00:07] LABS: ALBUMIN 2.6 g/dL (3.4-5.0); ANION GAP 5 mmol/L (5-15); CHLORIDE 107 mmol/L (98-107)
[2020-01-02 00:25] LABS: MD YES; MEAN PLATELET VOLUME 10.5 fL (7.4-10.4); PLATELET COUNT 127 x10^3/uL (130-400)
[2020-01-02 00:26] LABS: ANISOCYTOSIS 1+; EOS% (MANUAL) 1 % (1-7); LYMPH#(MANUAL) 1.26 x10^3/uL (1-3.4); LYMPHS% (MANUAL) 13 % (22-44); MONOS#(MANUAL) 0.78 x10^3/uL (0.3-2.7); MONOS% (MANUAL) 8 % (2-9); POLYCHROMASIA 1+; SEG#(MANUAL) 7.57 x10^3/uL (1.8-6.8); SEGS% (MANUAL) 78 % (42-75)
[2020-01-02 00:27] LABS: <PLATELET ESTIMATE> ADEQUATE; <PLT MORPHOLOGY> NORMAL PLT MORPH
[2020-01-02] MEDS ORDERED: FUROSEMIDE 40 MG/4 ML ONE (01:41)
[2020-01-02] MEDS ORDERED: FUROSEMIDE 40 MG/4 ML IV ONE (02:00)
--- NOTE | 2020-01-02 02:12 | NUR ---
REPORT GIVEN TO TODD COREAS. PLAN OF CARE DISCUSSED
[2020-01-02] MEDS ORDERED: ONDANSETRON 2MG/ML, 2ML IVPush PRN (02:30)
[2020-01-02] MEDS ORDERED: DOCUSATE 100 MG CAPSULE PO PRN (02:30)
[2020-01-02] MEDS ORDERED: ACETAMINOPHEN 325 MG TABLET PO PRN (02:30)
[2020-01-02] MEDS ORDERED: hydrALAzine 20 MG/ML, 1ML IVPush PRN (02:30)
[2020-01-02 02:51] VITALS: BP 107/73
[2020-01-02] MEDS ORDERED: FUROSEMIDE 20 MG/2 ML IV SCH (07:30)
[2020-01-02] MEDS: ALLOPURINOL 100 MG TABLET PO SCH (08:25)
[2020-01-02] MEDS: POTASSIUM CHLORIDE 20 MEQ PACKET PO SCH ×2 (08:25→17:24)
[2020-01-02] MEDS: SILDENAFIL 20 MG TABLET PO SCH ×3 (08:25→21:33)
[2020-01-02 08:26] LABS: CHLORIDE,URINE RANDOM 136 mmol/L; POTASSIUM,URINE RANDOM 12 mmol/L; SODIUM,URINE RANDOM 117 mmol/L
[2020-01-02 08:36] VITALS: BP 131/81
[2020-01-02] MEDS: FUROSEMIDE 40 MG/4 ML IV SCH ×2 (11:32→21:32)
[2020-01-02 14:00] VITALS: BP 98/62
[2020-01-02] MEDS: RIVAROXABAN 20 MG TABLET PO SCH (17:24)
[2020-01-02 19:40] VITALS: BP 113/77
[2020-01-03 01:50] VITALS: BP 116/70
[2020-01-03 05:50] LABS: ALBUMIN 2.5 g/dL (3.4-5.0); ANION GAP 6 mmol/L (5-15); CHLORIDE 98 mmol/L (98-107)
[2020-01-03 05:51] LABS: MEAN CORPUSCULAR HEMOGLOBIN 27.8 pg (27.5-34.5); MEAN CORPUSCULAR HGB CONC 31.2 g/dL (33.2-36.2); MEAN PLATELET VOLUME 10.4 fL (7.4-10.4); PLATELET COUNT 96 x10^3/uL (130-400); RED BLOOD COUNT 6.02 x10^6/uL (4.38-5.82); RED CELL DISTRIBUTION WIDTH 19.4 % (9.4-14.8)
[2020-01-03 06:45] VITALS: BP 128/82
[2020-01-03 07:03] LABS: BASOPHILS % (AUTO) 0 % (0-1); EOSINOPHILS # (AUTO) 0.11 x10^3/uL (0-0.4); EOSINOPHILS % (AUTO) 2 % (1-7); LYMPHOCYTES % (AUTO) 11 % (22-44); MD SCAN; MONOCYTES # (AUTO) 0.79 x10^3/uL (0.2-0.8); MONOCYTES % (AUTO) 12 % (2-9); NEUTROPHILS # (AUTO) 4.94 x10^3/uL (1.8-6.8); NEUTROPHILS % (AUTO) 76 % (42-75)
[2020-01-03] MEDS: POTASSIUM CHLORIDE 20 MEQ PACKET PO SCH ×2 (07:57→18:23)
[2020-01-03] MEDS: FUROSEMIDE 40 MG/4 ML IV SCH ×2 (07:57→21:01)
[2020-01-03] MEDS: ALLOPURINOL 100 MG TABLET PO SCH (07:57)
[2020-01-03] MEDS: SILDENAFIL 20 MG TABLET PO SCH ×3 (07:58→21:01)
[2020-01-03 13:42] VITALS: BP 110/78
[2020-01-03] MEDS: RIVAROXABAN 20 MG TABLET PO SCH (18:23)
[2020-01-03 19:03] VITALS: BP 132/93
[2020-01-04 00:37] VITALS: BP 108/75
[2020-01-04 05:40] LABS: ALBUMIN 2.6 g/dL (3.4-5.0); CALCIUM 8.3 mg/dL (8.5-10.1); CREATININE 1.19 mg/dL (0.7-1.3)
[2020-01-04 05:46] LABS: MEAN CORPUSCULAR HEMOGLOBIN 27.5 pg (27.5-34.5); MEAN CORPUSCULAR HGB CONC 30.9 g/dL (33.2-36.2); PLATELET COUNT 85 x10^3/uL (130-400); RED BLOOD COUNT 6.13 x10^6/uL (4.38-5.82); RED CELL DISTRIBUTION WIDTH 19.2 % (9.4-14.8)
[2020-01-04 06:19] LABS: MD YES
[2020-01-04 06:20] LABS: BAND#(MANUAL) 1.03 x10^3/uL; BANDS%(MANUAL) 18 % (0-7); EOS#(MANUAL) 0.06 x10^3/uL (0.0-0.4); EOS% (MANUAL) 1 % (1-7); LYMPH#(MANUAL) 0.46 x10^3/uL (1-3.4); LYMPHS% (MANUAL) 8 % (22-44); METAMYELOCYTES# (MANUAL) 0.06 x10^3/uL (0-0); METAMYELOCYTES% (MANUAL) 1 % (0-1); MONOS#(MANUAL) 1.03 x10^3/uL (0.3-2.7); MONOS% (MANUAL) 18 % (2-9); SEG#(MANUAL) 3.08 x10^3/uL (1.8-6.8); SEGS% (MANUAL) 54 % (42-75)
[2020-01-04 06:22] LABS: <PLATELET ESTIMATE> DECREASED; <PLT MORPHOLOGY> NORMAL PLT MORPH; ANISOCYTOSIS 1+
[2020-01-04 06:23] LABS: POLYCHROMASIA 1+
[2020-01-04 06:27] LABS: ANION GAP 5 mmol/L (5-15); CHLORIDE 92 mmol/L (98-107)
[2020-01-04 07:09] VITALS: BP 129/81
[2020-01-04] MEDS: SILDENAFIL 20 MG TABLET PO SCH ×3 (09:09→21:13)
[2020-01-04] MEDS: ALLOPURINOL 100 MG TABLET PO SCH (09:09)
[2020-01-04] MEDS: POTASSIUM CHLORIDE 20 MEQ PACKET PO SCH (09:09)
[2020-01-04] MEDS ORDERED: AZITHROMYCIN 500 MG in SODIUM CHLORIDE 0.9% 250 ML IV SCH (09:30)
[2020-01-04] MEDS ORDERED: OMNIPAQUE 350 MG/ML, 75ML BOTTLE ONE (09:50)
[2020-01-04] MEDS ORDERED: MAGNESIUM SULFATE PMX 2GM/50ML 50 ML IV ONE ×2 (10:00→12:00)
[2020-01-04] MEDS ORDERED: CEFTRIAXONE PMX 1GM/50ML 50 ML IV SCH (10:30)
[2020-01-04 10:49] LABS: O2 FLOW 4.5 L/min
[2020-01-04 14:26] LABS: MICROSCOPIC AUTO
[2020-01-04] MEDS ORDERED: FENTANYL PF 100 MCG/2ML IVPush PRN (15:00)
[2020-01-04] MEDS ORDERED: LIDOCAINE-MPF 1%, 2ML ENDO PRN (15:00)
[2020-01-04] MEDS ORDERED: PHARMACY MAY ADJ FOR RENAL FX MC SCH (15:00)
[2020-01-04] MEDS: FAMOTIDINE 20 MG/2 ML IV SCH (15:33)
[2020-01-04] MEDS: PROPOFOL 100 ML IV PRN ×4 (16:31→23:31)
[2020-01-04] MEDS ORDERED: FUROSEMIDE 40 MG/4 ML IV SCH (17:00)
[2020-01-04] MEDS ORDERED: ETOMIDATE 20 MG/10 ML ONE (17:11)
[2020-01-04] MEDS ORDERED: PROPOFOL 10 MG/ML, 100ML IV ONE (17:11)
[2020-01-04] MEDS ORDERED: MIDAZOLAM 1 MG/ML, 5ML ONE (17:11)
[2020-01-04] MEDS: RIVAROXABAN 20 MG TABLET PO SCH (17:57)
[2020-01-05] MEDS: PROPOFOL 100 ML IV PRN ×8 (02:12→21:47)
[2020-01-05] MEDS: FAMOTIDINE 20 MG/2 ML IV SCH ×2 (03:53→13:46)
[2020-01-05 07:37] LABS: CALCIUM 8.2 mg/dL (8.5-10.1); CHLORIDE 91 mmol/L (98-107); CREATININE 1.53 mg/dL (0.7-1.3)
[2020-01-05 07:44] LABS: MEAN CORPUSCULAR HEMOGLOBIN 27.7 pg (27.5-34.5); MEAN CORPUSCULAR HGB CONC 30.8 g/dL (33.2-36.2); MEAN PLATELET VOLUME 9.9 fL (7.4-10.4); PLATELET COUNT 68 x10^3/uL (130-400); RED BLOOD COUNT 6.23 x10^6/uL (4.38-5.82); RED CELL DISTRIBUTION WIDTH 18.2 % (9.4-14.8)
[2020-01-05 07:45] LABS: ANION GAP 3 mmol/L (5-15)
[2020-01-05 07:47] LABS: MD YES
[2020-01-05 07:55] LABS: <PLATELET ESTIMATE> DECREASED; <PLT MORPHOLOGY> NORMAL PLT MORPH; ANISOCYTOSIS 1+; BAND#(MANUAL) 1.47 x10^3/uL; BANDS%(MANUAL) 23 % (0-7); EOS#(MANUAL) 0.19 x10^3/uL (0.0-0.4); EOS% (MANUAL) 3 % (1-7); LYMPH#(MANUAL) 0.38 x10^3/uL (1-3.4); LYMPHS% (MANUAL) 6 % (22-44); METAMYELOCYTES# (MANUAL) 0.13 x10^3/uL (0-0); METAMYELOCYTES% (MANUAL) 2 % (0-1); MONOS#(MANUAL) 0.32 x10^3/uL (0.3-2.7); MONOS% (MANUAL) 5 % (2-9); POLYCHROMASIA 1+; SEGS% (MANUAL) 61 % (42-75)
[2020-01-05] MEDS ORDERED: FUROSEMIDE 40 MG/4 ML IV SCH (09:00)
[2020-01-05] MEDS: AcetaZOLAMIDE INJ 500 MG IVPush SCH ×2 (09:12→21:08)
[2020-01-05] MEDS: SILDENAFIL 20 MG TABLET PO SCH ×3 (09:12→21:08)
[2020-01-05] MEDS ORDERED: SODIUM CHLORIDE 0.9%, 500ML IVBOLUS ONE (12:30)
[2020-01-05] MEDS ORDERED: POTASSIUM CHLORIDE 20 MEQ TAB.ER.PRT PO SCH (17:00)
[2020-01-05] MEDS: RIVAROXABAN 20 MG TABLET PO SCH (17:01)
[2020-01-05] MEDS ORDERED: POTASSIUM CHLORIDE 10% 40 MEQ/30 ML UDC PO SCH (21:00)
[2020-01-05] MEDS: POTASSIUM CHLORIDE 10% 40 MEQ/30 ML UDC PO SCH (21:08)
[2020-01-05] MEDS: ACETAMINOPHEN 650 MG/20.3 ML UDC PO/NG PRN (21:09)
[2020-01-06] MEDS: PROPOFOL 100 ML IV PRN ×3 (00:49→06:26)
[2020-01-06] MEDS: FAMOTIDINE 20 MG/2 ML IV SCH ×2 (03:00→15:25)
[2020-01-06 06:13] LABS: MD YES; MEAN CORPUSCULAR HEMOGLOBIN 27.6 pg (27.5-34.5); MEAN CORPUSCULAR HGB CONC 31.4 g/dL (33.2-36.2); MEAN PLATELET VOLUME 10.5 fL (7.4-10.4); PLATELET COUNT 63 x10^3/uL (130-400); RED BLOOD COUNT 6.13 x10^6/uL (4.38-5.82); RED CELL DISTRIBUTION WIDTH 18.4 % (9.4-14.8)
[2020-01-06 06:16] LABS: ANISOCYTOSIS 1+; BAND#(MANUAL) 5.28 x10^3/uL; BANDS%(MANUAL) 38 % (0-7); EOS#(MANUAL) 0.14 x10^3/uL (0.0-0.4); EOS% (MANUAL) 1 % (1-7); LYMPHS% (MANUAL) 5 % (22-44); METAMYELOCYTES# (MANUAL) 0.14 x10^3/uL (0-0); METAMYELOCYTES% (MANUAL) 1 % (0-1); MONOS#(MANUAL) 0.56 x10^3/uL (0.3-2.7); MONOS% (MANUAL) 4 % (2-9); PMNS WITH VACUOLES 1+; SEG#(MANUAL) 7.09 x10^3/uL (1.8-6.8); SEGS% (MANUAL) 51 % (42-75)
[2020-01-06 06:17] LABS: <PLATELET ESTIMATE> DECREASED; LARGE PLATELETS 1+
[2020-01-06] MEDS: CEFTRIAXONE PMX 1GM/50ML 50 ML IV SCH (07:39)
[2020-01-06 07:47] LABS: ANION GAP 6 mmol/L (5-15); CALCIUM 7.6 mg/dL (8.5-10.1); CHLORIDE 98 mmol/L (98-107); CREATININE 1.43 mg/dL (0.7-1.3)
[2020-01-06] MEDS: SILDENAFIL 20 MG TABLET PO SCH ×3 (07:54→20:09)
[2020-01-06] MEDS: POTASSIUM CHLORIDE 10% 40 MEQ/30 ML UDC PO SCH (07:54)
[2020-01-06] MEDS ORDERED: LACTULOSE 20 GM/30 ML UDC NG SCH ×2 (09:00)
[2020-01-06] MEDS: RIVAROXABAN 20 MG TABLET PO SCH (16:43)
[2020-01-06] MEDS ORDERED: LACTULOSE 20 GM/30 ML UDC NG PRN (17:00)
[2020-01-07] MEDS: FAMOTIDINE 20 MG/2 ML IV SCH ×2 (02:59→15:23)
[2020-01-07 04:52] LABS: ANION GAP 2 mmol/L (5-15); CALCIUM 7.6 mg/dL (8.5-10.1); CHLORIDE 102 mmol/L (98-107); CREATININE 1.13 mg/dL (0.7-1.3)
[2020-01-07 04:54] LABS: MEAN CORPUSCULAR HEMOGLOBIN 27.3 pg (27.5-34.5); MEAN CORPUSCULAR HGB CONC 31.3 g/dL (33.2-36.2); MEAN PLATELET VOLUME 13.3 fL (7.4-10.4); PLATELET COUNT 64 x10^3/uL (130-400); RED BLOOD COUNT 5.59 x10^6/uL (4.38-5.82); RED CELL DISTRIBUTION WIDTH 18.2 % (9.4-14.8)
[2020-01-07 05:41] LABS: MD YES
[2020-01-07 05:44] LABS: ANISOCYTOSIS 1+; BAND#(MANUAL) 4.13 x10^3/uL; BANDS%(MANUAL) 25 % (0-7); EOS#(MANUAL) 0.66 x10^3/uL (0.0-0.4); EOS% (MANUAL) 4 % (1-7); LYMPH#(MANUAL) 0.99 x10^3/uL (1-3.4); LYMPHS% (MANUAL) 6 % (22-44); METAMYELOCYTES# (MANUAL) 0.17 x10^3/uL (0-0); METAMYELOCYTES% (MANUAL) 1 % (0-1); MONOS#(MANUAL) 0.33 x10^3/uL (0.3-2.7); MONOS% (MANUAL) 2 % (2-9); SEG#(MANUAL) 10.23 x10^3/uL (1.8-6.8); SEGS% (MANUAL) 62 % (42-75)
[2020-01-07 05:45] LABS: <PLATELET ESTIMATE> DECREASED
[2020-01-07 05:46] LABS: LARGE PLATELETS 1+
[2020-01-07] MEDS: CEFTRIAXONE PMX 1GM/50ML 50 ML IV SCH (07:11)
[2020-01-07] MEDS: SILDENAFIL 20 MG TABLET PO SCH ×3 (09:09→21:44)
[2020-01-07] MEDS: MEROPENEM 1 GM in SODIUM CHLORIDE 0.9% 100 ML IV SCH ×2 (12:58→21:00)
[2020-01-07 13:49] LABS: D-DIMER (DIC) 1.37 ug/mlFEU (0.00-0.52); PROTIME 11.5 Seconds (9.6-11.5)
[2020-01-07] MEDS: RIVAROXABAN 20 MG TABLET PO SCH (16:30)
[2020-01-08] MEDS: ACETAMINOPHEN 650 MG/20.3 ML UDC PO/NG PRN (00:23)
[2020-01-08] MEDS: FAMOTIDINE 20 MG/2 ML IV SCH ×2 (02:56→15:48)
[2020-01-08] MEDS: MEROPENEM 1 GM in SODIUM CHLORIDE 0.9% 100 ML IV SCH ×3 (04:03→20:40)
[2020-01-08 05:04] LABS: ANION GAP 3 mmol/L (5-15); CALCIUM 8.1 mg/dL (8.5-10.1); CHLORIDE 107 mmol/L (98-107); CREATININE 0.92 mg/dL (0.7-1.3)
[2020-01-08 05:43] LABS: MD YES; MEAN CORPUSCULAR HEMOGLOBIN 27.5 pg (27.5-34.5); MEAN CORPUSCULAR HGB CONC 31.2 g/dL (33.2-36.2); MEAN PLATELET VOLUME 10.9 fL (7.4-10.4); PLATELET COUNT 63 x10^3/uL (130-400); RED BLOOD COUNT 5.54 x10^6/uL (4.38-5.82); RED CELL DISTRIBUTION WIDTH 18.3 % (9.4-14.8)
[2020-01-08 05:45] LABS: BAND#(MANUAL) 2.38 x10^3/uL; BANDS%(MANUAL) 20 % (0-7); EOS#(MANUAL) 0.36 x10^3/uL (0.0-0.4); EOS% (MANUAL) 3 % (1-7); LYMPHS% (MANUAL) 5 % (22-44); MONOS#(MANUAL) 0.36 x10^3/uL (0.3-2.7); MONOS% (MANUAL) 3 % (2-9); SEG#(MANUAL) 8.21 x10^3/uL (1.8-6.8); SEGS% (MANUAL) 69 % (42-75)
[2020-01-08 05:46] LABS: ANISOCYTOSIS 1+
[2020-01-08 05:47] LABS: <PLATELET ESTIMATE> DECREASED; LARGE PLATELETS 1+
[2020-01-08] MEDS: SILDENAFIL 20 MG TABLET PO SCH ×3 (09:24→20:40)
[2020-01-08] MEDS: FUROSEMIDE 40 MG/4 ML IV SCH (11:00)
[2020-01-08] MEDS: SPIRONOLACTONE 25 MG TABLET PO SCH (11:00)
[2020-01-08] MEDS: RIVAROXABAN 20 MG TABLET PO SCH (16:44)
[2020-01-09] MEDS: FAMOTIDINE 20 MG/2 ML IV SCH ×2 (04:05→16:30)
[2020-01-09] MEDS: MEROPENEM 1 GM in SODIUM CHLORIDE 0.9% 100 ML IV SCH ×3 (04:14→20:24)
[2020-01-09 04:33] LABS: MEAN CORPUSCULAR HEMOGLOBIN 27.3 pg (27.5-34.5); MEAN CORPUSCULAR HGB CONC 31.5 g/dL (33.2-36.2); MEAN PLATELET VOLUME 10.5 fL (7.4-10.4); PLATELET COUNT 76 x10^3/uL (130-400); RED BLOOD COUNT 5.55 x10^6/uL (4.38-5.82); RED CELL DISTRIBUTION WIDTH 17.8 % (9.4-14.8)
[2020-01-09 04:41] LABS: ANION GAP 1 mmol/L (5-15); CALCIUM 8.6 mg/dL (8.5-10.1); CHLORIDE 107 mmol/L (98-107); CREATININE 0.86 mg/dL (0.7-1.3)
[2020-01-09 04:55] LABS: MD YES
[2020-01-09 05:01] LABS: BAND#(MANUAL) 1.12 x10^3/uL; BANDS%(MANUAL) 18 % (0-7); EOS#(MANUAL) 0.19 x10^3/uL (0.0-0.4); EOS% (MANUAL) 3 % (1-7); LYMPH#(MANUAL) 0.43 x10^3/uL (1-3.4); LYMPHS% (MANUAL) 7 % (22-44); METAMYELOCYTES# (MANUAL) 0.06 x10^3/uL (0-0); METAMYELOCYTES% (MANUAL) 1 % (0-1); MONOS#(MANUAL) 0.43 x10^3/uL (0.3-2.7); MONOS% (MANUAL) 7 % (2-9); MYELOCYTES# (MANUAL) 0.12 x10^3/uL (0-0); MYELOCYTES% (MANUAL) 2 % (0-0); REACTIVE LYMPHS # (MANUAL) 0.19 x10^3/uL (0-0); REACTIVE LYMPHS % (MANUAL) 3 % (0-0); SEG#(MANUAL) 3.66 x10^3/uL (1.8-6.8); SEGS% (MANUAL) 59 % (42-75)
[2020-01-09 05:02] LABS: <PLATELET ESTIMATE> DECREASED; ANISOCYTOSIS 1+; LARGE PLATELETS 1+; PMNS WITH VACUOLES 1+
[2020-01-09] MEDS: SPIRONOLACTONE 25 MG TABLET PO SCH (08:41)
[2020-01-09] MEDS: FUROSEMIDE 40 MG/4 ML IV SCH (08:41)
[2020-01-09] MEDS: ACETAMINOPHEN 650 MG/20.3 ML UDC PO/NG PRN (08:41)
[2020-01-09] MEDS: SILDENAFIL 20 MG TABLET PO SCH ×3 (08:41→20:24)
[2020-01-09] MEDS: RIVAROXABAN 20 MG TABLET PO SCH (16:30)
[2020-01-10] MEDS: FAMOTIDINE 20 MG/2 ML IV SCH ×2 (04:17→16:52)
[2020-01-10] MEDS: MEROPENEM 1 GM in SODIUM CHLORIDE 0.9% 100 ML IV SCH ×3 (04:17→20:28)
[2020-01-10 07:10] LABS: MEAN PLATELET VOLUME 10.1 fL (7.4-10.4); PLATELET COUNT 100 x10^3/uL (130-400); RED BLOOD COUNT 5.64 x10^6/uL (4.38-5.82)
[2020-01-10 07:12] LABS: MD YES
[2020-01-10 07:15] LABS: ANISOCYTOSIS 1+; BAND#(MANUAL) 0.52 x10^3/uL; BANDS%(MANUAL) 12 % (0-7); EOS#(MANUAL) 0.13 x10^3/uL (0.0-0.4); EOS% (MANUAL) 3 % (1-7); LYMPH#(MANUAL) 0.82 x10^3/uL (1-3.4); LYMPHS% (MANUAL) 19 % (22-44); MONOS#(MANUAL) 0.52 x10^3/uL (0.3-2.7); MONOS% (MANUAL) 12 % (2-9); REACTIVE LYMPHS # (MANUAL) 0.09 x10^3/uL (0-0); REACTIVE LYMPHS % (MANUAL) 2 % (0-0); SEG#(MANUAL) 2.24 x10^3/uL (1.8-6.8); SEGS% (MANUAL) 52 % (42-75)
[2020-01-10 07:16] LABS: <PLATELET ESTIMATE> DECREASED; LARGE PLATELETS 1+
[2020-01-10 09:09] LABS: ANION GAP 4 mmol/L (5-15); CALCIUM 8.6 mg/dL (8.5-10.1); CHLORIDE 111 mmol/L (98-107); CREATININE 0.91 mg/dL (0.7-1.3)
[2020-01-10] MEDS: SPIRONOLACTONE 25 MG TABLET PO SCH (09:12)
[2020-01-10] MEDS: SILDENAFIL 20 MG TABLET PO SCH ×3 (09:12→20:28)
[2020-01-10] MEDS: FUROSEMIDE 10 MG/ML ORAL SOL NG SCH (09:13)
[2020-01-10] MEDS: RIVAROXABAN 20 MG TABLET PO SCH (16:53)
[2020-01-11] MEDS: MEROPENEM 1 GM in SODIUM CHLORIDE 0.9% 100 ML IV SCH ×3 (04:17→21:19)
[2020-01-11] MEDS: FAMOTIDINE 20 MG TABLET PO SCH ×2 (05:05→16:25)
[2020-01-11 05:10] LABS: CREATININE 0.93 mg/dL (0.7-1.3)
[2020-01-11 05:17] LABS: ANION GAP 4 mmol/L (5-15); CHLORIDE 108 mmol/L (98-107)
[2020-01-11 05:26] LABS: MEAN CORPUSCULAR HEMOGLOBIN 27.2 pg (27.5-34.5); MEAN CORPUSCULAR HGB CONC 31.6 g/dL (33.2-36.2); PLATELET COUNT 148 x10^3/uL (130-400); RED BLOOD COUNT 5.79 x10^6/uL (4.38-5.82)
[2020-01-11 05:27] LABS: MD YES
[2020-01-11 05:37] LABS: <PLATELET ESTIMATE> ADEQUATE; ANISOCYTOSIS 1+; BAND#(MANUAL) 0.42 x10^3/uL; BANDS%(MANUAL) 10 % (0-7); EOS#(MANUAL) 0.21 x10^3/uL (0.0-0.4); EOS% (MANUAL) 5 % (1-7); LYMPH#(MANUAL) 0.34 x10^3/uL (1-3.4); LYMPHS% (MANUAL) 8 % (22-44); METAMYELOCYTES# (MANUAL) 0.08 x10^3/uL (0-0); METAMYELOCYTES% (MANUAL) 2 % (0-1); MONOS#(MANUAL) 0.63 x10^3/uL (0.3-2.7); MONOS% (MANUAL) 15 % (2-9); MYELOCYTES# (MANUAL) 0.04 x10^3/uL (0-0); MYELOCYTES% (MANUAL) 1 % (0-0); REACTIVE LYMPHS # (MANUAL) 0.13 x10^3/uL (0-0); REACTIVE LYMPHS % (MANUAL) 3 % (0-0); SEG#(MANUAL) 2.35 x10^3/uL (1.8-6.8); SEGS% (MANUAL) 56 % (42-75)
[2020-01-11 05:38] LABS: LARGE PLATELETS 1+
[2020-01-11] MEDS: SPIRONOLACTONE 25 MG TABLET PO SCH (09:24)
[2020-01-11] MEDS: FUROSEMIDE 10 MG/ML ORAL SOL NG SCH (09:24)
[2020-01-11] MEDS: SILDENAFIL 20 MG TABLET PO SCH ×3 (09:25→21:19)
[2020-01-11] MEDS: SODIUM CHLORIDE INHALATION 7%, 4 ML NPPB SCH ×3 (11:00→19:22)
[2020-01-11] MEDS: RIVAROXABAN 20 MG TABLET PO SCH (16:25)
[2020-01-12 04:23] LABS: BASOPHILS # (AUTO) 0.02 x10^3/uL (0-0.1); BASOPHILS % (AUTO) 1 % (0-1); EOSINOPHILS # (AUTO) 0.24 x10^3/uL (0-0.4); EOSINOPHILS % (AUTO) 6 % (1-7); LYMPHOCYTES # (AUTO) 1.08 x10^3/uL (1-3.4); LYMPHOCYTES % (AUTO) 26 % (22-44); MD NO; MEAN CORPUSCULAR HEMOGLOBIN 27.2 pg (27.5-34.5); MEAN CORPUSCULAR HGB CONC 31.5 g/dL (33.2-36.2); MEAN PLATELET VOLUME 11.8 fL (7.4-10.4); MONOCYTES # (AUTO) 0.37 x10^3/uL (0.2-0.8); MONOCYTES % (AUTO) 9 % (2-9); NEUTROPHILS # (AUTO) 2.52 x10^3/uL (1.8-6.8); NEUTROPHILS % (AUTO) 60 % (42-75); PLATELET COUNT 157 x10^3/uL (130-400); RED BLOOD COUNT 5.67 x10^6/uL (4.38-5.82); RED CELL DISTRIBUTION WIDTH 17.6 % (9.4-14.8)
[2020-01-12 04:31] LABS: ANION GAP 1 mmol/L (5-15); CALCIUM 8.5 mg/dL (8.5-10.1); CHLORIDE 109 mmol/L (98-107); CREATININE 0.75 mg/dL (0.7-1.3)
[2020-01-12] MEDS: FAMOTIDINE 20 MG TABLET PO SCH ×2 (05:07→16:36)
[2020-01-12] MEDS: MEROPENEM 1 GM in SODIUM CHLORIDE 0.9% 100 ML IV SCH ×3 (05:07→20:12)
[2020-01-12] MEDS: FUROSEMIDE 10 MG/ML ORAL SOL NG SCH (09:00)
[2020-01-12] MEDS: SILDENAFIL 20 MG TABLET PO SCH ×3 (09:12→20:12)
[2020-01-12] MEDS: SPIRONOLACTONE 25 MG TABLET PO SCH (09:13)
[2020-01-12] MEDS ORDERED: FUROSEMIDE 40 MG TABLET ONE ×2 (09:13→09:16)
[2020-01-12] MEDS: RIVAROXABAN 20 MG TABLET PO SCH (16:36)
[2020-01-13 04:49] LABS: ANION GAP 2 mmol/L (5-15); CALCIUM 8.3 mg/dL (8.5-10.1); CHLORIDE 106 mmol/L (98-107); CREATININE 0.77 mg/dL (0.7-1.3)
[2020-01-13] MEDS: FAMOTIDINE 20 MG TABLET PO SCH ×2 (04:54→17:08)
[2020-01-13] MEDS: MEROPENEM 1 GM in SODIUM CHLORIDE 0.9% 100 ML IV SCH ×2 (04:54→12:48)
[2020-01-13 05:52] LABS: MD YES; MEAN CORPUSCULAR HGB CONC 31.1 g/dL (33.2-36.2); MEAN PLATELET VOLUME 11.3 fL (7.4-10.4); PLATELET COUNT 192 x10^3/uL (130-400); RED BLOOD COUNT 5.55 x10^6/uL (4.38-5.82); RED CELL DISTRIBUTION WIDTH 17.4 % (9.4-14.8)
[2020-01-13 05:55] LABS: BAND#(MANUAL) 0.22 x10^3/uL; BANDS%(MANUAL) 6 % (0-7); EOS#(MANUAL) 0.22 x10^3/uL (0.0-0.4); EOS% (MANUAL) 6 % (1-7); LYMPH#(MANUAL) 1.84 x10^3/uL (1-3.4); LYMPHS% (MANUAL) 51 % (22-44); METAMYELOCYTES# (MANUAL) 0.07 x10^3/uL (0-0); METAMYELOCYTES% (MANUAL) 2 % (0-1); MONOS#(MANUAL) 0.22 x10^3/uL (0.3-2.7); MONOS% (MANUAL) 6 % (2-9); SEG#(MANUAL) 1.04 x10^3/uL (1.8-6.8); SEGS% (MANUAL) 29 % (42-75)
[2020-01-13 05:56] LABS: <PLATELET ESTIMATE> ADEQUATE; ANISOCYTOSIS 1+; LARGE PLATELETS 1+
[2020-01-13] MEDS ORDERED: FUROSEMIDE 40 MG TABLET ONE (09:01)
[2020-01-13] MEDS: SILDENAFIL 20 MG TABLET PO SCH ×3 (09:07→20:50)
[2020-01-13] MEDS: FUROSEMIDE 10 MG/ML ORAL SOL NG SCH (09:07)
[2020-01-13] MEDS: SPIRONOLACTONE 25 MG TABLET PO SCH (09:07)
[2020-01-13 09:10] VITALS: BP 129/45
[2020-01-13] MEDS: FUROSEMIDE 10 MG/ML ORAL SOL PO SCH (09:30)
[2020-01-13 10:49] VITALS: BP 117/77
[2020-01-13 13:26] VITALS: BP 114/71
[2020-01-13] MEDS: CIPROFLOXACIN/PMX 400MG/200ML 200 ML IV SCH (17:08)
[2020-01-13] MEDS: RIVAROXABAN 20 MG TABLET PO SCH (17:08)
[2020-01-13 18:25] VITALS: BP 114/76
[2020-01-14 01:35] VITALS: BP 109/74
[2020-01-14] MEDS: CIPROFLOXACIN/PMX 400MG/200ML 200 ML IV SCH (04:42)
[2020-01-14] MEDS: FAMOTIDINE 20 MG TABLET PO SCH (04:45)
[2020-01-14 05:39] LABS: ANION GAP 2 mmol/L (5-15); CALCIUM 8.4 mg/dL (8.5-10.1); CHLORIDE 101 mmol/L (98-107)
[2020-01-14 05:42] LABS: CREATININE 0.89 mg/dL (0.7-1.3)
[2020-01-14 06:18] LABS: BASOPHILS # (AUTO) 0.04 x10^3/uL (0-0.1); BASOPHILS % (AUTO) 1 % (0-1); EOSINOPHILS # (AUTO) 0.17 x10^3/uL (0-0.4); EOSINOPHILS % (AUTO) 4 % (1-7); LYMPHOCYTES # (AUTO) 1.59 x10^3/uL (1-3.4); LYMPHOCYTES % (AUTO) 36 % (22-44); MD SCAN; MEAN CORPUSCULAR HEMOGLOBIN 27.2 pg (27.5-34.5); MEAN CORPUSCULAR HGB CONC 31.8 g/dL (33.2-36.2); MEAN PLATELET VOLUME 11.4 fL (7.4-10.4); MONOCYTES # (AUTO) 0.28 x10^3/uL (0.2-0.8); MONOCYTES % (AUTO) 6 % (2-9); NEUTROPHILS # (AUTO) 2.29 x10^3/uL (1.8-6.8); NEUTROPHILS % (AUTO) 53 % (42-75); PLATELET COUNT 196 x10^3/uL (130-400); RED BLOOD COUNT 5.55 x10^6/uL (4.38-5.82); RED CELL DISTRIBUTION WIDTH 16.3 % (9.4-14.8)
[2020-01-14] MEDS: SPIRONOLACTONE 25 MG TABLET PO SCH (07:54)
[2020-01-14] MEDS: SILDENAFIL 20 MG TABLET PO SCH ×3 (07:54→20:42)
[2020-01-14] MEDS: FUROSEMIDE 10 MG/ML ORAL SOL PO SCH (07:55)
[2020-01-14 08:25] VITALS: BP 127/79
[2020-01-14] MEDS ORDERED: ACETAMINOPHEN 325 MG TABLET PO PRN (08:30)
[2020-01-14] MEDS: CIPROFLOXACIN 500 MG TABLET PO SCH ×2 (09:37→20:43)
[2020-01-14] MEDS: LACTOBACILLUS CHEW TABLET PO SCH ×3 (09:37→20:42)
[2020-01-14 14:34] VITALS: BP 115/80
[2020-01-14] MEDS: RIVAROXABAN 20 MG TABLET PO SCH (16:57)
[2020-01-14 19:44] VITALS: BP 142/78
[2020-01-14] MEDS ORDERED: SENNA/DOCUSATE TABLET PO SCH (21:00)
[2020-01-14] MEDS ORDERED: CARVEDILOL 3.125 MG TABLET PO SCH (21:00)
[2020-01-15 02:16] VITALS: BP 126/75
[2020-01-15 08:12] VITALS: BP 125/89
[2020-01-15] MEDS: SILDENAFIL 20 MG TABLET PO SCH (08:14)
[2020-01-15] MEDS: LACTOBACILLUS CHEW TABLET PO SCH ×2 (08:15→15:03)
[2020-01-15] MEDS: SPIRONOLACTONE 25 MG TABLET PO SCH (08:15)
[2020-01-15] MEDS: CIPROFLOXACIN 500 MG TABLET PO SCH (08:16)
[2020-01-15] MEDS: FUROSEMIDE 10 MG/ML ORAL SOL PO SCH (08:16)
[2020-01-15 09:30] LABS: ANION GAP 3 mmol/L (5-15); CALCIUM 8.9 mg/dL (8.5-10.1); CHLORIDE 101 mmol/L (98-107); CREATININE 0.79 mg/dL (0.7-1.3)
[2020-01-15 09:31] VITALS: BP 110/72
[2020-01-15 09:40] LABS: BASOPHILS # (AUTO) 0.04 x10^3/uL (0-0.1); BASOPHILS % (AUTO) 1 % (0-1); EOSINOPHILS # (AUTO) 0.11 x10^3/uL (0-0.4); EOSINOPHILS % (AUTO) 2 % (1-7); LYMPHOCYTES # (AUTO) 1.84 x10^3/uL (1-3.4); LYMPHOCYTES % (AUTO) 40 % (22-44); MD SCAN; MEAN CORPUSCULAR HEMOGLOBIN 26.9 pg (27.5-34.5); MEAN CORPUSCULAR HGB CONC 31.7 g/dL (33.2-36.2); MEAN PLATELET VOLUME 11.4 fL (7.4-10.4); MONOCYTES # (AUTO) 0.38 x10^3/uL (0.2-0.8); MONOCYTES % (AUTO) 8 % (2-9); NEUTROPHILS # (AUTO) 2.18 x10^3/uL (1.8-6.8); NEUTROPHILS % (AUTO) 48 % (42-75); PLATELET COUNT 210 x10^3/uL (130-400); RED BLOOD COUNT 5.56 x10^6/uL (4.38-5.82); RED CELL DISTRIBUTION WIDTH 16.4 % (9.4-14.8)
[2020-01-15] MEDS ORDERED: ACID1TAB7 PO ×2 (10:20)
[2020-01-15] MEDS ORDERED: FURO-93 PO ×2 (10:20)
[2020-01-15] MEDS ORDERED: CARV3.1212 PO ×2 (10:20)
[2020-01-15 12:42] VITALS: BP 111/75
[2020-01-15] MEDS ORDERED: HYDR-3341 PO ×2 (14:11)
== END 2020-01-15 15:50 | disposition home or self-care (01) | DRG 870 ==
LOC: EDBD 23:09 → MERGE 23:09 → ED 01-02 02:14 → EDIP 01-02 02:31 → 5SO 01-02 02:51 → CCU 01-04 11:36 → 4EST 01-13 10:54 → DCLOUNGE 01-15 15:40
PROVIDERS: ADMIT Hospitalist; ATTEND Internal Medicine
PROC: 5A1955Z Respiratory Ventilation, Greater than 96 Consecutive Hours (ICD-10-PCS; principal; 2020-01-04)
PROC: 0BH17EZ Insertion of Endotracheal Airway into Trachea, Via Natural or Artificial Opening (ICD-10-PCS; 2020-01-04)
PROC: 5A09357 Assistance with Respiratory Ventilation, Less than 24 Consecutive Hours, Continuous Positive Airway Pressure (ICD-10-PCS; 2020-01-04)
PROC: 0T9B70Z Drainage of Bladder with Drainage Device, Via Natural or Artificial Opening (ICD-10-PCS; 2020-01-04)
PROC: 5A09357 Assistance with Respiratory Ventilation, Less than 24 Consecutive Hours, Continuous Positive Airway Pressure (ICD-10-PCS; 2020-01-12)
PROC: 5A09357 Assistance with Respiratory Ventilation, Less than 24 Consecutive Hours, Continuous Positive Airway Pressure (ICD-10-PCS; 2020-01-13)
DX: A41.51 Sepsis due to Escherichia coli [E. coli] (principal); G93.41 Metabolic encephalopathy; I26.99 Other pulmonary embolism without acute cor pulmonale; I50.33 Acute on chronic diastolic (congestive) heart failure; J15.4 Pneumonia due to other streptococci; J96.21 Acute and chronic respiratory failure with hypoxia; J96.22 Acute and chronic respiratory failure with hypercapnia; N17.0 Acute kidney failure with tubular necrosis; E66.2 Morbid (severe) obesity with alveolar hypoventilation; E87.1 Hypo-osmolality and hyponatremia; E87.2 Acidosis; N39.0 Urinary tract infection, site not specified; Z68.41 Body mass index [BMI] 40.0-44.9, adult; Z99.11 Dependence on respirator [ventilator] status; D69.6 Thrombocytopenia, unspecified; D70.9 Neutropenia, unspecified; D75.1 Secondary polycythemia; E16.2 Hypoglycemia, unspecified; I11.0 Hypertensive heart disease with heart failure; I27.29 Other secondary pulmonary hypertension; I27.81 Cor pulmonale (chronic); M10.9 Gout, unspecified; M79.7 Fibromyalgia; Z79.01 Long term (current) use of anticoagulants; Z86.718 Personal history of other venous thrombosis and embolism; Z87.440 Personal history of urinary (tract) infections; Z91.19 Patient's noncompliance with other medical treatment and regimen
CPT/HCPCS: 36415; 36600; 84145; 96374; 96376; 99285; J3490; 71045; 71275; 76705; 80048; 80069; 81001; 82040; 82436; 82570; 82803; 83036; 83735; 83880; 84133; 84300; 84443; 84478; 84550; 85025; 85049; 85379; 85384; 85610; 85730; 87040; 87070; 87077; 87081; 87086; 87184; 87186; 87205; 93005; 93306; 93970; 94002; 94003; 94150; 94640; 94660; 94668; 99195; G0378; J0696; J0744; J1940; J2185; J2250; J2704; Q9967; J1120; J3475; J7040

== ENCOUNTER 2020-02-07 12:46 | Inpatient (IN) | payer MEDICAID, OTHER ==
[~2020-02-07] VITALS: Ht 170.2 cm; Wt 133.2 kg
[~2020-02-07 12:46] MED LIST changes: +ACID1TAB7 PO; +CARV3.1212 PO; +FURO-93 PO; +HYDR-3341 PO; +MIDAZOLAM 1 MG/ML, 5ML ONE; +PROPOFOL 10 MG/ML, 100ML IV ONE; +PROPOFOL 10 MG/ML, 20ML ONE
[2020-02-07] MEDS ORDERED: RACEPINEPHRINE INH 2.25%, 0.5ML ONE (12:52)
[2020-02-07] MEDS ORDERED: methylPREDNISolone SOD SUCC 125 MG/2 ML ONE (12:55)
[2020-02-07] MEDS ORDERED: RACEPINEPHRINE INH 2.25%, 0.5ML NPPB ONE (13:00)
[2020-02-07] MEDS ORDERED: methylPREDNISolone SOD SUCC 125 MG/2 ML IVPush ONE (13:00)
[2020-02-07] MEDS ORDERED: SODIUM CHLORIDE FLUSH 10ML SYR IVF ONE (13:00)
[2020-02-07] MEDS ORDERED: PLEASE ENTER HEIGHT AND WEIGHT MC SCH (13:00)
--- NOTE | 2020-02-07 13:00 | NUR ---
RT AT [facility] MEDS.PT IN BED WITH CONT CORRESPONDENCE [employer]OL TE[employer]ER, SPO2, BP Q 30 MIN. SIDE RAILS X2, CALL LIGHT IN REACH. LAB AT BEDSIDE. PT HAS MD ROYA ATBEDSIDE.
--- NOTE | 2020-02-07 13:17 | NUR ---
SOB STARTING LASTNIGHT, PT CALLED EMS AND WAS PUT ON BI-PAP FOR SUDDEN DIFFICULTY BREATHING. HX CHF, HPT PT REPORTS TAKING A VIAGRA TODAY.PATIENT HAS STRIDOR BUT REPIORTS THAT HE IS BREATHING BETTER AFTER TREATMENT. PT CAN MAKE FULL SENTENCES, A&OX4. CALL LIGHT IN HAND.XRAY IN ROOM
[2020-02-07 13:25] LABS: BASOPHILS # (AUTO) 0.07 x10^3/uL (0-0.1); BASOPHILS % (AUTO) 1 % (0-1); EOSINOPHILS # (AUTO) 0.21 x10^3/uL (0-0.4); EOSINOPHILS % (AUTO) 3 % (1-7); LYMPHOCYTES # (AUTO) 2.06 x10^3/uL (1-3.4); LYMPHOCYTES % (AUTO) 27 % (22-44); MD NO; MEAN CORPUSCULAR HEMOGLOBIN 28.3 pg (27.5-34.5); MEAN CORPUSCULAR HGB CONC 31.9 g/dL (33.2-36.2); MEAN CORPUSCULAR VOLUME 88.7 fL (81-97); MEAN PLATELET VOLUME 10.6 fL (7.4-10.4); MONOCYTES # (AUTO) 0.11 x10^3/uL (0.2-0.8); MONOCYTES % (AUTO) 2 % (2-9); NEUTROPHILS # (AUTO) 5.23 x10^3/uL (1.8-6.8); NEUTROPHILS % (AUTO) 68 % (42-75); PLATELET COUNT 121 x10^3/uL (130-400); RED BLOOD COUNT 5.65 x10^6/uL (4.38-5.82)
[2020-02-07 13:34] LABS: ALANINE AMINOTRANSFERASE 23 U/L (12-78); ALBUMIN 3.1 g/dL (3.4-5.0); ANION GAP 4 mmol/L (5-15); CALCIUM 8.4 mg/dL (8.5-10.1); CHLORIDE 103 mmol/L (98-107); CREATININE 0.92 mg/dL (0.7-1.3)
[2020-02-07 13:39] LABS: ALKALINE PHOSPHATASE 73 U/L (45-117); BILIRUBIN,TOTAL 1.1 mg/dL (0.2-1.0); TOTAL PROTEIN 8.8 g/dL (6.4-8.2); TROPONIN I < 0.015 ng/mL (0.000-0.045)
--- NOTE | 2020-02-07 14:01 | NUR ---
TASK RN: PT PLACED ON BIPAP BY RT. SETTINGS 18/8 30%. ST PER MONITOR, AUTO BP IN PLACE. CALL LIGHT IN PLACE. CONT TO MONITOR.
[2020-02-07] MEDS ORDERED: OMNIPAQUE 350 MG/ML, 100ML BOTTLE ONE (14:49)
--- NOTE | 2020-02-07 14:52 | NUR ---
PT TO CT WITH PRIMARY RN ON 4L NC. PT USED URINAOL AND PUT BACK ON BIPAP. NAD
[2020-02-07] MEDS ORDERED: DOCUSATE 100 MG CAPSULE PO PRN (16:00)
[2020-02-07] MEDS ORDERED: ACETAMINOPHEN 325 MG TABLET PO PRN (16:00)
[2020-02-07] MEDS ORDERED: LIDOCAINE 1%-EPI 1:100K, 20ML ONE (16:00)
[2020-02-07] MEDS: GABAPENTIN 100 MG CAPSULE PO SCH ×2 (16:00→21:38)
[2020-02-07] MEDS ORDERED: MELATONIN 5 MG TABLET PO PRN (16:00)
[2020-02-07] MEDS ORDERED: ONDANSETRON 2MG/ML, 2ML IVPush PRN (16:00)
[2020-02-07] MEDS ORDERED: hydrALAzine 20 MG/ML, 1ML IVPush PRN (16:00)
[2020-02-07] MEDS: DEXAMETHASONE 4 MG/ML, 1ML IVPush SCH ×2 (16:00→21:37)
[2020-02-07 16:19] LABS: INTERNATIONAL NORMALIZED RATIO 1.16 (0.93-1.1); PROTHROMBIN TIME 12.3 Seconds (9.6-11.5)
[2020-02-07 16:51] LABS: HCT (SEDRATE) 50.1 % (39.2-51.8)
[2020-02-07] MEDS ORDERED: DEXAMETHASONE 4 MG/ML, 1ML ONE (17:04)
[2020-02-07 17:20] LABS: C-REACTIVE PROTEIN, QUANT 0.38 mg/dL (0.02-0.49)
[2020-02-07] MEDS ORDERED: FENTANYL PF 100 MCG/2ML ONE (17:20)
[2020-02-07] MEDS ORDERED: SODIUM CHLORIDE 0.9% 1,000ML IVBOLUS ONE (18:00)
[2020-02-07] MEDS ORDERED: SENNA/DOCUSATE TABLET NG PRN (18:30)
[2020-02-07] MEDS ORDERED: GLUCAGON 1 MG IM PRN (18:30)
[2020-02-07] MEDS ORDERED: PHARMACY MAY ADJ FOR RENAL FX MC SCH (18:30)
[2020-02-07] MEDS ORDERED: DEXTROSE 4 GM TAB.CHEW PO PRN (18:30)
[2020-02-07] MEDS ORDERED: LACTULOSE 20 GM/30 ML UDC NG PRN (18:30)
[2020-02-07] MEDS ORDERED: FAMOTIDINE 20 MG/2 ML IV SCH (18:30)
[2020-02-07] MEDS: ENOXAPARIN 40 MG/0.4 ML SQ SCH (18:30)
[2020-02-07] MEDS: ENOXAPARIN 100 MG/ML SQ SCH (18:30)
[2020-02-07] MEDS ORDERED: BISACODYL 10 MG SUPP PR PRN (18:30)
[2020-02-07] MEDS ORDERED: DEXTROSE 50%, 50ML SYRINGE IVPush PRN (18:30)
[2020-02-07 18:54] LABS: C-REACTIVE PROTEIN, QUANT 0.31 mg/dL (0.02-0.49)
[2020-02-07] MEDS ORDERED: MIDAZOLAM 1 MG/ML, 2ML ONE ×2 (19:07→19:48)
--- NOTE | 2020-02-07 20:11 | NUR ---
PT WAS GOING TO GO TO THE OR FOR ET TUBE PLACEMENT. PT TESTED + FOR COVID. MD LIU AND TEAM DECITED TO INTUBATEIN THE ER ROOM 41. SEE PROCEDURAL SUDATION PAPERWORK FOR MEDICATIONS AND VITALS. 16G F COILED ET PLACED. 16F NG PUT IN RIGHT NARE. 18G IV PUT IN RIGHT HAND. RESTRAINTS ON BILAT WRIST. 16G RODRIGUEZ CATH PUT IN WITH 250 ML URINE OUT. PT NEEDED A CHEST TUBE BEFORE TRANSPORTATION, 24F RIGHT SIDE OF CHEST. 14 MG OF VERSED GIVEN PER MD HAMILTON.
[2020-02-07] MEDS: CARVEDILOL 3.125 MG TABLET PO SCH (21:38)
[2020-02-07] MEDS: FAMOTIDINE 20 MG TABLET PO SCH (21:38)
[2020-02-07] MEDS: SILDENAFIL 20 MG TABLET PO SCH (21:38)
[2020-02-07] MEDS: PROPOFOL 100 ML IV PRN (21:39)
[2020-02-07] MEDS: SODIUM CHLORIDE FLUSH 10ML SYR IVF SCH (21:39)
[2020-02-07] MEDS: ALBUTEROL/IPRATROPIUM 2.5MG/0.5MG, 3 ML INLINE SCH (22:30)
[2020-02-07 22:40] VITALS: BP 115/67
[2020-02-08] MEDS: ALBUTEROL/IPRATROPIUM 2.5MG/0.5MG, 3 ML INLINE SCH ×6 (02:30→22:30)
[2020-02-08 04:00] VITALS: BP 88/40
[2020-02-08] MEDS: DEXAMETHASONE 4 MG/ML, 1ML IVPush SCH ×4 (04:00→23:00)
[2020-02-08] MEDS: PROPOFOL 100 ML IV PRN ×4 (04:49→22:51)
[2020-02-08] MEDS: SILDENAFIL 20 MG TABLET PO SCH ×3 (06:23→23:00)
[2020-02-08] MEDS: ENOXAPARIN 40 MG/0.4 ML SQ SCH ×2 (06:23→18:30)
[2020-02-08] MEDS: ENOXAPARIN 100 MG/ML SQ SCH ×2 (06:24→18:30)
[2020-02-08 06:39] LABS: MEAN CORPUSCULAR HEMOGLOBIN 28.2 pg (27.5-34.5); MEAN CORPUSCULAR HGB CONC 31.5 g/dL (33.2-36.2); MEAN CORPUSCULAR VOLUME 89.4 fL (81-97); MEAN PLATELET VOLUME 10.9 fL (7.4-10.4); PLATELET COUNT 113 x10^3/uL (130-400); RED BLOOD COUNT 5.28 x10^6/uL (4.38-5.82); RED CELL DISTRIBUTION WIDTH 20.6 % (9.4-14.8)
[2020-02-08 06:52] LABS: ALANINE AMINOTRANSFERASE 23 U/L (12-78); ALBUMIN 2.9 g/dL (3.4-5.0); ANION GAP 6 mmol/L (5-15); CALCIUM 8.6 mg/dL (8.5-10.1); CHLORIDE 108 mmol/L (98-107); CREATININE 0.91 mg/dL (0.7-1.3)
[2020-02-08 06:55] LABS: ALKALINE PHOSPHATASE 66 U/L (45-117); BILIRUBIN,TOTAL 1.5 mg/dL (0.2-1.0); TOTAL PROTEIN 7.7 g/dL (6.4-8.2)
[2020-02-08 07:14] LABS: BASOPHILS # (AUTO) 0.01 x10^3/uL (0-0.1); BASOPHILS % (AUTO) 0 % (0-1); EOSINOPHILS % (AUTO) 0 % (1-7); LYMPHOCYTES # (AUTO) 0.51 x10^3/uL (1-3.4); LYMPHOCYTES % (AUTO) 6 % (22-44); MD SCAN; MONOCYTES # (AUTO) 0.08 x10^3/uL (0.2-0.8); MONOCYTES % (AUTO) 1 % (2-9); NEUTROPHILS # (AUTO) 8.17 x10^3/uL (1.8-6.8); NEUTROPHILS % (AUTO) 93 % (42-75)
[2020-02-08] MEDS ORDERED: SPIRONOLACTONE 50 MG TABLET ONE (08:11)
[2020-02-08] MEDS: CARVEDILOL 3.125 MG TABLET PO SCH (09:00)
[2020-02-08] MEDS ORDERED: FUROSEMIDE 20 MG TABLET PO SCH (09:00)
[2020-02-08] MEDS ORDERED: SPIRONOLACTONE 25 MG TABLET PO SCH (09:00)
[2020-02-08] MEDS: SODIUM CHLORIDE FLUSH 10ML SYR IVF SCH ×2 (09:19→20:41)
[2020-02-08] MEDS: FAMOTIDINE 20 MG TABLET PO SCH ×2 (09:20→20:41)
[2020-02-08] MEDS: GABAPENTIN 100 MG CAPSULE PO SCH ×3 (09:20→20:41)
[2020-02-08] MEDS ORDERED: SODIUM CHLORIDE 0.9%, 500ML IVBOLUS ONE (10:30)
[2020-02-08] MEDS ORDERED: ALLOPURINOL 300 MG TABLET ONE (10:49)
[2020-02-08] MEDS: ALLOPURINOL 100 MG TABLET PO SCH (10:55)
[2020-02-08] MEDS: SODIUM CHLORIDE 0.9% 1,000 ML IV SCH (10:57)
[2020-02-08] MEDS ORDERED: SODIUM CHLORIDE 0.9% 1,000ML IVBOLUS ONE (11:00)
[2020-02-08] MEDS: LINEZOLID PMX 600MG/300ML 300 ML IV SCH (13:57)
[2020-02-08] MEDS: ASCORBIC ACID 500 MG TABLET PO SCH ×2 (15:03→20:40)
[2020-02-08] MEDS: FENTANYL PF 100 MCG/2ML IVPush PRN (20:41)
[2020-02-08] MEDS: THIAMINE 100MG TABLET PO SCH (20:41)
[2020-02-08] MEDS ORDERED: FUROSEMIDE 40 MG/4 ML IV ONE (23:30)
[2020-02-08] MEDS ORDERED: ALBUMIN HUMAN 25% 100 ML IV ONE (23:30)
[2020-02-09] MEDS: LINEZOLID PMX 600MG/300ML 300 ML IV SCH ×2 (01:22→14:10)
[2020-02-09] MEDS: PROPOFOL 100 ML IV PRN ×3 (02:12→16:25)
[2020-02-09] MEDS: ALBUTEROL/IPRATROPIUM 2.5MG/0.5MG, 3 ML INLINE SCH ×6 (02:30→22:06)
[2020-02-09 04:00] VITALS: BP 104/58
[2020-02-09 04:57] LABS: ANION GAP 7 mmol/L (5-15); CALCIUM 8.4 mg/dL (8.5-10.1); CHLORIDE 107 mmol/L (98-107); CREATININE 1.12 mg/dL (0.7-1.3)
[2020-02-09 04:58] LABS: MEAN CORPUSCULAR HEMOGLOBIN 28.6 pg (27.5-34.5); MEAN CORPUSCULAR VOLUME 89.2 fL (81-97); MEAN PLATELET VOLUME 11.7 fL (7.4-10.4); PLATELET COUNT 110 x10^3/uL (130-400); RED BLOOD COUNT 4.91 x10^6/uL (4.38-5.82); RED CELL DISTRIBUTION WIDTH 20.6 % (9.4-14.8)
[2020-02-09 05:45] LABS: MD YES
[2020-02-09 05:47] LABS: BAND#(MANUAL) 0.35 x10^3/uL; BANDS%(MANUAL) 3 % (0-7); LYMPH#(MANUAL) 0.35 x10^3/uL (1-3.4); LYMPHS% (MANUAL) 3 % (22-44); MONOS#(MANUAL) 0.35 x10^3/uL (0.3-2.7); MONOS% (MANUAL) 3 % (2-9); SEG#(MANUAL) 10.56 x10^3/uL (1.8-6.8); SEGS% (MANUAL) 91 % (42-75)
[2020-02-09 05:48] LABS: <PLATELET ESTIMATE> DECREASED; ANISOCYTOSIS 1+; LARGE PLATELETS 1+
[2020-02-09] MEDS: DEXAMETHASONE 4 MG/ML, 1ML IVPush SCH ×4 (05:58→22:04)
[2020-02-09] MEDS: SILDENAFIL 20 MG TABLET PO SCH ×3 (05:59→21:11)
[2020-02-09] MEDS: SODIUM CHLORIDE 0.9% 1,000 ML IV SCH ×2 (05:59→16:07)
[2020-02-09] MEDS ORDERED: FAMOTIDINE 40 MG TABLET ONE (08:29)
[2020-02-09] MEDS: SODIUM CHLORIDE FLUSH 10ML SYR IVF SCH ×2 (09:00→21:11)
[2020-02-09] MEDS: FAMOTIDINE 20 MG TABLET PO SCH ×2 (09:00→21:10)
[2020-02-09] MEDS: ENOXAPARIN 100 MG/ML SQ SCH ×2 (09:03→19:28)
[2020-02-09] MEDS: ENOXAPARIN 40 MG/0.4 ML SQ SCH ×2 (09:03→19:29)
[2020-02-09] MEDS: THIAMINE 100MG TABLET PO SCH ×2 (09:03→21:10)
[2020-02-09] MEDS: ASCORBIC ACID 500 MG TABLET PO SCH ×3 (09:04→21:10)
[2020-02-09] MEDS: CHOLECALCIFEROL 1,000 UNIT TABLET PO SCH (09:04)
[2020-02-09] MEDS: GABAPENTIN 100 MG CAPSULE PO SCH ×3 (09:05→21:10)
[2020-02-09] MEDS: ZINC SULFATE 220 MG CAPSULE PO SCH (09:05)
[2020-02-09] MEDS: ALLOPURINOL 100 MG TABLET PO SCH (09:05)
[2020-02-09] MEDS: FENTANYL PF 100 MCG/2ML IVPush PRN ×4 (09:12→23:58)
[2020-02-09] MEDS: LIDOCAINE-MPF 1%, 2ML ENDO PRN (18:53)
[2020-02-10] MEDS: LINEZOLID PMX 600MG/300ML 300 ML IV SCH (01:16)
[2020-02-10] MEDS: FENTANYL PF 100 MCG/2ML IVPush PRN ×4 (02:24→21:32)
[2020-02-10] MEDS: ALBUTEROL/IPRATROPIUM 2.5MG/0.5MG, 3 ML INLINE SCH ×6 (02:32→22:30)
[2020-02-10] MEDS: LIDOCAINE-MPF 1%, 2ML ENDO PRN (02:32)
[2020-02-10 04:00] VITALS: BP 98/51
[2020-02-10 04:18] LABS: ANION GAP 4 mmol/L (5-15); CALCIUM 8.1 mg/dL (8.5-10.1); CHLORIDE 106 mmol/L (98-107); CREATININE 0.74 mg/dL (0.7-1.3); TRIGLYCERIDES 68 mg/dL (50-200)
[2020-02-10 04:39] LABS: MD YES; MEAN CORPUSCULAR HGB CONC 32.7 g/dL (33.2-36.2); MEAN CORPUSCULAR VOLUME 88.8 fL (81-97); MEAN PLATELET VOLUME 10.7 fL (7.4-10.4); PLATELET COUNT 85 x10^3/uL (130-400); RED BLOOD COUNT 4.54 x10^6/uL (4.38-5.82); RED CELL DISTRIBUTION WIDTH 19.9 % (9.4-14.8)
[2020-02-10 04:42] LABS: <PLATELET ESTIMATE> DECREASED; ANISOCYTOSIS 1+; LYMPHS% (MANUAL) 7 % (22-44); MONOS#(MANUAL) 0.29 x10^3/uL (0.3-2.7); MONOS% (MANUAL) 5 % (2-9); SEG#(MANUAL) 5.02 x10^3/uL (1.8-6.8); SEGS% (MANUAL) 88 % (42-75)
[2020-02-10 04:43] LABS: GIANT PLATELETS 1+; LARGE PLATELETS 1+
[2020-02-10] MEDS: SILDENAFIL 20 MG TABLET PO SCH ×3 (06:06→21:14)
[2020-02-10] MEDS: DEXAMETHASONE 4 MG/ML, 1ML IVPush SCH ×4 (06:06→23:33)
[2020-02-10] MEDS: SODIUM CHLORIDE 0.9% 1,000 ML IV SCH (06:39)
[2020-02-10] MEDS: ENOXAPARIN 40 MG/0.4 ML SQ SCH ×2 (08:11→21:13)
[2020-02-10] MEDS: ENOXAPARIN 100 MG/ML SQ SCH ×2 (08:11→21:14)
[2020-02-10] MEDS: ZINC SULFATE 220 MG CAPSULE PO SCH (08:12)
[2020-02-10] MEDS: GABAPENTIN 100 MG CAPSULE PO SCH ×3 (08:12→21:14)
[2020-02-10] MEDS: CHOLECALCIFEROL 1,000 UNIT TABLET PO SCH (08:12)
[2020-02-10] MEDS: ASCORBIC ACID 500 MG TABLET PO SCH ×3 (08:12→21:14)
[2020-02-10] MEDS: THIAMINE 100MG TABLET PO SCH ×2 (08:13→21:13)
[2020-02-10] MEDS: ALLOPURINOL 100 MG TABLET PO SCH (08:13)
[2020-02-10] MEDS: FAMOTIDINE 20 MG TABLET PO SCH ×2 (08:14→21:14)
[2020-02-10] MEDS: SODIUM CHLORIDE FLUSH 10ML SYR IVF SCH ×2 (08:14→21:15)
[2020-02-10] MEDS: CEFAZOLIN PMX 2GM/50ML 50 ML IVPB SCH ×3 (09:30→23:33)
[2020-02-10] MEDS: PROPOFOL 100 ML IV PRN (23:34)
[2020-02-11] MEDS: FENTANYL PF 100 MCG/2ML IVPush PRN ×4 (00:27→15:04)
[2020-02-11] MEDS: PROPOFOL 100 ML IV PRN (01:45)
[2020-02-11] MEDS: ALBUTEROL/IPRATROPIUM 2.5MG/0.5MG, 3 ML INLINE SCH ×6 (02:20→22:25)
[2020-02-11 04:00] VITALS: BP 107/56
[2020-02-11] MEDS: SILDENAFIL 20 MG TABLET PO SCH ×3 (05:37→22:11)
[2020-02-11] MEDS: DEXAMETHASONE 4 MG/ML, 1ML IVPush SCH ×4 (05:37→22:11)
[2020-02-11 06:07] LABS: MEAN CORPUSCULAR HEMOGLOBIN 28.5 pg (27.5-34.5); MEAN CORPUSCULAR VOLUME 89.3 fL (81-97); MEAN PLATELET VOLUME 10.4 fL (7.4-10.4); PLATELET COUNT 97 x10^3/uL (130-400); RED BLOOD COUNT 4.51 x10^6/uL (4.38-5.82); RED CELL DISTRIBUTION WIDTH 19.7 % (9.4-14.8)
[2020-02-11 06:14] LABS: CALCIUM 8.4 mg/dL (8.5-10.1)
[2020-02-11 06:33] LABS: ANION GAP 4 mmol/L (5-15); CHLORIDE 107 mmol/L (98-107)
[2020-02-11] MEDS: ENOXAPARIN 40 MG/0.4 ML SQ SCH ×2 (07:53→21:10)
[2020-02-11] MEDS: CEFAZOLIN PMX 2GM/50ML 50 ML IVPB SCH ×2 (07:54→16:29)
[2020-02-11] MEDS: ENOXAPARIN 100 MG/ML SQ SCH ×2 (07:54→21:10)
[2020-02-11] MEDS: THIAMINE 100MG TABLET PO SCH ×2 (07:55→21:11)
[2020-02-11] MEDS: FAMOTIDINE 20 MG TABLET PO SCH ×2 (07:55→21:11)
[2020-02-11] MEDS: ALLOPURINOL 100 MG TABLET PO SCH (07:55)
[2020-02-11] MEDS: CHOLECALCIFEROL 1,000 UNIT TABLET PO SCH (07:55)
[2020-02-11] MEDS: ASCORBIC ACID 500 MG TABLET PO SCH ×3 (07:55→21:11)
[2020-02-11] MEDS: GABAPENTIN 100 MG CAPSULE PO SCH ×3 (07:55→21:11)
[2020-02-11] MEDS: SODIUM CHLORIDE FLUSH 10ML SYR IVF SCH ×2 (07:56→21:10)
[2020-02-11] MEDS: ZINC SULFATE 220 MG CAPSULE PO SCH (07:56)
[2020-02-11 07:58] LABS: MD YES
[2020-02-11 09:32] LABS: BAND#(MANUAL) 0.12 x10^3/uL; BANDS%(MANUAL) 2 % (0-7); LYMPH#(MANUAL) 0.48 x10^3/uL (1-3.4); LYMPHS% (MANUAL) 8 % (22-44); MONOS% (MANUAL) 5 % (2-9); SEGS% (MANUAL) 85 % (42-75)
[2020-02-11 09:34] LABS: <PLATELET ESTIMATE> DECREASED; <PLT MORPHOLOGY> NORMAL PLT MORPH; <RBC MORPHOLOGY> NORMAL
[2020-02-11] MEDS: GUAIFENESIN 200 MG TABLET PO SCH ×3 (11:35→21:11)
[2020-02-11] MEDS: SENNA 176 MG/5 ML ORAL SOL NG PRN (21:10)
[2020-02-12] MEDS: CEFAZOLIN PMX 2GM/50ML 50 ML IVPB SCH ×3 (00:54→17:01)
[2020-02-12] MEDS: ALBUTEROL/IPRATROPIUM 2.5MG/0.5MG, 3 ML INLINE SCH ×5 (02:30→21:55)
[2020-02-12 04:00] VITALS: BP 130/73
[2020-02-12] MEDS: DEXAMETHASONE 4 MG/ML, 1ML IVPush SCH ×4 (05:43→23:01)
[2020-02-12] MEDS: SILDENAFIL 20 MG TABLET PO SCH ×3 (05:43→23:01)
[2020-02-12] MEDS: GUAIFENESIN 200 MG TABLET PO SCH ×4 (05:43→20:24)
[2020-02-12 06:27] LABS: MEAN CORPUSCULAR HEMOGLOBIN 29.2 pg (27.5-34.5); MEAN CORPUSCULAR HGB CONC 32.7 g/dL (33.2-36.2); MEAN CORPUSCULAR VOLUME 89.2 fL (81-97); MEAN PLATELET VOLUME 11.1 fL (7.4-10.4); PLATELET COUNT 115 x10^3/uL (130-400); RED BLOOD COUNT 4.59 x10^6/uL (4.38-5.82); RED CELL DISTRIBUTION WIDTH 18.8 % (9.4-14.8)
[2020-02-12 07:02] LABS: MD YES
[2020-02-12 07:04] LABS: <PLATELET ESTIMATE> DECREASED; <RBC MORPHOLOGY> NORMAL; BAND#(MANUAL) 0.25 x10^3/uL; BANDS%(MANUAL) 3 % (0-7); LYMPH#(MANUAL) 0.66 x10^3/uL (1-3.4); LYMPHS% (MANUAL) 8 % (22-44); MONOS#(MANUAL) 0.25 x10^3/uL (0.3-2.7); MONOS% (MANUAL) 3 % (2-9); SEG#(MANUAL) 7.05 x10^3/uL (1.8-6.8); SEGS% (MANUAL) 86 % (42-75)
[2020-02-12 07:05] LABS: LARGE PLATELETS 1+
[2020-02-12] MEDS ORDERED: DOCUSATE 50 MG/5 ML, 10ML UDC PO PRN (07:30)
[2020-02-12 07:40] LABS: ANION GAP 5 mmol/L (5-15); CALCIUM 8.4 mg/dL (8.5-10.1); CHLORIDE 105 mmol/L (98-107); CREATININE 0.67 mg/dL (0.7-1.3)
[2020-02-12] MEDS: ENOXAPARIN 100 MG/ML SQ SCH ×3 (07:53→21:00)
[2020-02-12] MEDS: ENOXAPARIN 40 MG/0.4 ML SQ SCH ×3 (07:53→21:00)
[2020-02-12] MEDS: ZINC SULFATE 220 MG CAPSULE PO SCH (07:53)
[2020-02-12] MEDS: THIAMINE 100MG TABLET PO SCH ×2 (07:53→20:24)
[2020-02-12] MEDS: ALLOPURINOL 100 MG TABLET PO SCH (07:53)
[2020-02-12] MEDS: FAMOTIDINE 20 MG TABLET PO SCH ×2 (07:54→20:24)
[2020-02-12] MEDS: ASCORBIC ACID 500 MG TABLET PO SCH ×3 (07:54→20:24)
[2020-02-12] MEDS: GABAPENTIN 100 MG CAPSULE PO SCH ×3 (07:54→20:24)
[2020-02-12] MEDS: CHOLECALCIFEROL 1,000 UNIT TABLET PO SCH (07:54)
[2020-02-12] MEDS: SODIUM CHLORIDE FLUSH 10ML SYR IVF SCH ×2 (07:55→20:24)
[2020-02-12] MEDS: FENTANYL PF 100 MCG/2ML IVPush PRN ×3 (07:55→20:51)
[2020-02-12] MEDS: SENNA 176 MG/5 ML ORAL SOL NG PRN (23:01)
[2020-02-12] MEDS: LIDOCAINE-MPF 1%, 2ML ENDO PRN ×2 (23:25→23:30)
[2020-02-13] MEDS: CEFAZOLIN PMX 2GM/50ML 50 ML IVPB SCH ×2 (01:35→07:58)
[2020-02-13] MEDS: ALBUTEROL/IPRATROPIUM 2.5MG/0.5MG, 3 ML INLINE SCH ×4 (01:55→14:00)
[2020-02-13] MEDS: LIDOCAINE-MPF 1%, 2ML ENDO PRN ×4 (01:55→11:45)
[2020-02-13 04:00] VITALS: BP 119/72
[2020-02-13] MEDS: FENTANYL PF 100 MCG/2ML IVPush PRN (04:16)
[2020-02-13] MEDS: SILDENAFIL 20 MG TABLET PO SCH ×2 (05:47→14:10)
[2020-02-13] MEDS: GUAIFENESIN 200 MG TABLET PO SCH ×2 (05:47→11:28)
[2020-02-13] MEDS: DEXAMETHASONE 4 MG/ML, 1ML IVPush SCH ×2 (05:47→11:28)
[2020-02-13 06:11] LABS: MEAN CORPUSCULAR HEMOGLOBIN 28.8 pg (27.5-34.5); MEAN CORPUSCULAR HGB CONC 32.6 g/dL (33.2-36.2); MEAN CORPUSCULAR VOLUME 88.4 fL (81-97); MEAN PLATELET VOLUME 10.5 fL (7.4-10.4); PLATELET COUNT 119 x10^3/uL (130-400); RED BLOOD COUNT 4.68 x10^6/uL (4.38-5.82); RED CELL DISTRIBUTION WIDTH 18.3 % (9.4-14.8)
[2020-02-13 06:12] LABS: MD YES
[2020-02-13 06:31] LABS: BAND#(MANUAL) 0.08 x10^3/uL; BANDS%(MANUAL) 1 % (0-7); LYMPH#(MANUAL) 0.33 x10^3/uL (1-3.4); LYMPHS% (MANUAL) 4 % (22-44)
[2020-02-13 06:32] LABS: <PLATELET ESTIMATE> DECREASED; ANISOCYTOSIS 1+; MONOS#(MANUAL) 0.41 x10^3/uL (0.3-2.7); MONOS% (MANUAL) 5 % (2-9); SEG#(MANUAL) 7.38 x10^3/uL (1.8-6.8); SEGS% (MANUAL) 90 % (42-75)
[2020-02-13 06:33] LABS: LARGE PLATELETS 1+
[2020-02-13] MEDS: ALLOPURINOL 100 MG TABLET PO SCH (07:58)
[2020-02-13] MEDS: ZINC SULFATE 220 MG CAPSULE PO SCH (07:58)
[2020-02-13] MEDS: FAMOTIDINE 20 MG TABLET PO SCH (07:58)
[2020-02-13] MEDS: ASCORBIC ACID 500 MG TABLET PO SCH (07:58)
[2020-02-13] MEDS: THIAMINE 100MG TABLET PO SCH (07:58)
[2020-02-13] MEDS: CHOLECALCIFEROL 1,000 UNIT TABLET PO SCH (07:58)
[2020-02-13] MEDS: SODIUM CHLORIDE FLUSH 10ML SYR IVF SCH (07:59)
[2020-02-13] MEDS: ENOXAPARIN 100 MG/ML SQ SCH (08:00)
[2020-02-13] MEDS: ENOXAPARIN 40 MG/0.4 ML SQ SCH (08:00)
[2020-02-13] MEDS: GABAPENTIN 100 MG CAPSULE PO SCH (08:02)
[2020-02-13] MEDS ORDERED: ZINC220C7 PO (14:38)
[2020-02-13] MEDS ORDERED: GUAI200T37 PO (14:38)
[2020-02-13] MEDS ORDERED: ONDA4VIA60 IVPush (14:38)
[2020-02-13] MEDS ORDERED: DEXA4VIA39 IVPush (14:38)
[2020-02-13] MEDS ORDERED: THIA100T67 PO (14:38)
[2020-02-13] MEDS ORDERED: MELA5TAB14 PO (14:38)
[2020-02-13] MEDS ORDERED: FAMO20TA7 PO (14:38)
[2020-02-13] MEDS ORDERED: LIDO10VI34 ENDO (14:38)
[2020-02-13] MEDS ORDERED: CEFA2FRO INJ (14:38)
[2020-02-13] MEDS ORDERED: DOCU50LI26 PO (14:38)
[2020-02-13] MEDS ORDERED: IPRA3AMP30 INLINE (14:38)
[2020-02-13] MEDS ORDERED: ASCO500T9 PO (14:38)
[2020-02-13] MEDS ORDERED: CHOL10003 PO (14:38)
== END 2020-02-13 15:43 | disposition short-term general hospital (02) | DRG 207 ==
LOC: ED 13:45 → EDIP 15:45 → ICU 20:02
PROVIDERS: ADMIT Hospitalist; ATTEND Hospitalist
PROC: 5A1955Z Respiratory Ventilation, Greater than 96 Consecutive Hours (ICD-10-PCS; principal; 2020-02-07)
PROC: 0BH17EZ Insertion of Endotracheal Airway into Trachea, Via Natural or Artificial Opening (ICD-10-PCS; 2020-02-07)
PROC: 5A09357 Assistance with Respiratory Ventilation, Less than 24 Consecutive Hours, Continuous Positive Airway Pressure (ICD-10-PCS; 2020-02-07)
PROC: 0W9930Z Drainage of Right Pleural Cavity with Drainage Device, Percutaneous Approach (ICD-10-PCS; 2020-02-07)
PROC: 02HV33Z Insertion of Infusion Device into Superior Vena Cava, Percutaneous Approach (ICD-10-PCS; 2020-02-09)
PROC: B548ZZA Ultrasonography of Superior Vena Cava, Guidance (ICD-10-PCS; 2020-02-09)
DX: U07.1 COVID-19 (principal); J15.211 Pneumonia due to Methicillin susceptible Staphylococcus aureus; J93.0 Spontaneous tension pneumothorax; J96.21 Acute and chronic respiratory failure with hypoxia; J96.22 Acute and chronic respiratory failure with hypercapnia; E66.2 Morbid (severe) obesity with alveolar hypoventilation; E87.2 Acidosis; I50.32 Chronic diastolic (congestive) heart failure; Z68.42 Body mass index [BMI] 45.0-49.9, adult; Z99.11 Dependence on respirator [ventilator] status; B96.20 Unspecified Escherichia coli [E. coli] as the cause of diseases classified elsewhere; D69.6 Thrombocytopenia, unspecified; D75.1 Secondary polycythemia; I07.1 Rheumatic tricuspid insufficiency; I11.0 Hypertensive heart disease with heart failure; I27.29 Other secondary pulmonary hypertension; I27.81 Cor pulmonale (chronic); J38.6 Stenosis of larynx; J39.8 Other specified diseases of upper respiratory tract; M79.7 Fibromyalgia; T88.4XXA Failed or difficult intubation, initial encounter; Z79.01 Long term (current) use of anticoagulants; Z86.711 Personal history of pulmonary embolism; Z86.718 Personal history of other venous thrombosis and embolism; Z91.14 Patient's other noncompliance with medication regimen
CPT/HCPCS: 32551; 36415; 36600; 70360; 99291; J3490; 36573; 70491; 71045; 80048; 80053; 82803; 83605; 83615; 83735; 83880; 84100; 84478; 84484; 85025; 85379; 85610; 85651; 86140; 87040; 87070; 87077; 87081; 87147; 87186; 87205; 87635; 93005; 94002; 94003; 94640; 94660; G0378; J0690; J1100; J1650; J1940; J2020; J2250; J2704; J3010; P9047; Q9967; C1751; J2930; J7030; J7040

== ENCOUNTER 2020-02-26 15:34 | Inpatient (IN) | payer MEDICAID, OTHER ==
[~2020-02-26] VITALS: Ht 167.6 cm; Wt 128.9 kg
[~2020-02-26 15:34] MED LIST changes: +ASCO500T9 PO; +CEFA2FRO INJ; +CHOL10003 PO; +DEXA4VIA39 IVPush; +DOCU50LI26 PO; +FAMO20TA7 PO; +GUAI200T37 PO; +IPRA3AMP30 INLINE; +LIDO10VI34 ENDO; +MELA5TAB14 PO; -MIDAZOLAM 1 MG/ML, 5ML ONE; +ONDA4VIA60 IVPush; -PROPOFOL 10 MG/ML, 100ML IV ONE; -PROPOFOL 10 MG/ML, 20ML ONE; +THIA100T67 PO; +ZINC220C7 PO
[2020-02-26] MEDS ORDERED: OMEP40CA42 PO (16:33)
[2020-02-26] MEDS ORDERED: FURO20TA3 PO (16:33)
[2020-02-26] MEDS ORDERED: WARF7.5T PO (16:33)
[2020-02-26] MEDS ORDERED: ALLO100T30 PO (16:34)
[2020-02-26 17:12] VITALS: BP 110/74
[2020-02-26 17:14] VITALS: BP 110/74
[2020-02-26] MEDS ORDERED: ONDANSETRON 2MG/ML, 2ML IVPush PRN (17:30)
[2020-02-26] MEDS ORDERED: ENALAPRILAT 1.25 MG/ML, 2ML IVPush PRN (17:30)
[2020-02-26 18:18] LABS: INTERNATIONAL NORMALIZED RATIO 1.61 (0.93-1.1); PROTHROMBIN TIME 16.7 Seconds (9.6-11.5)
[2020-02-26] MEDS ORDERED: WARFARIN 2 MG TABLET PO-COUM ONE (19:00)
[2020-02-26] MEDS: GABAPENTIN 100 MG CAPSULE PO SCH (20:21)
[2020-02-26 20:27] VITALS: BP 104/63
[2020-02-27 00:05] VITALS: BP 95/52
[2020-02-27 04:45] LABS: INTERNATIONAL NORMALIZED RATIO 1.58 (0.93-1.1); PROTHROMBIN TIME 16.3 Seconds (9.6-11.5)
[2020-02-27 04:51] LABS: ALANINE AMINOTRANSFERASE 33 U/L (12-78); ALBUMIN 2.7 g/dL (3.4-5.0); CALCIUM 8.5 mg/dL (8.5-10.1); CHLORIDE 100 mmol/L (98-107)
[2020-02-27 04:54] LABS: ALKALINE PHOSPHATASE 82 U/L (45-117); BILIRUBIN,TOTAL 0.5 mg/dL (0.2-1.0); CREATININE 0.77 mg/dL (0.7-1.3); TOTAL PROTEIN 8.7 g/dL (6.4-8.2)
[2020-02-27 05:00] LABS: ANION GAP 4 mmol/L (5-15)
[2020-02-27 05:02] LABS: MEAN CORPUSCULAR HEMOGLOBIN 28.6 pg (27.5-34.5); MEAN CORPUSCULAR HGB CONC 31.8 g/dL (33.2-36.2); MEAN CORPUSCULAR VOLUME 89.8 fL (81-97); PLATELET COUNT 212 x10^3/uL (130-400); RED BLOOD COUNT 4.15 x10^6/uL (4.38-5.82); RED CELL DISTRIBUTION WIDTH 15.9 % (9.4-14.8)
[2020-02-27 05:45] LABS: MD YES
[2020-02-27 05:47] LABS: BAND#(MANUAL) 0.11 x10^3/uL; BANDS%(MANUAL) 2 % (0-7); EOS#(MANUAL) 0.23 x10^3/uL (0.0-0.4); EOS% (MANUAL) 4 % (1-7); LYMPH#(MANUAL) 1.65 x10^3/uL (1-3.4); LYMPHS% (MANUAL) 29 % (22-44); METAMYELOCYTES# (MANUAL) 0.06 x10^3/uL (0-0); METAMYELOCYTES% (MANUAL) 1 % (0-1); MONOS#(MANUAL) 0.17 x10^3/uL (0.3-2.7); MONOS% (MANUAL) 3 % (2-9); SEG#(MANUAL) 3.48 x10^3/uL (1.8-6.8); SEGS% (MANUAL) 61 % (42-75)
[2020-02-27 05:48] LABS: <PLATELET ESTIMATE> ADEQUATE; <PLT MORPHOLOGY> NORMAL PLT MORPH; ANISOCYTOSIS 1+
[2020-02-27] MEDS: ALLOPURINOL 100 MG TABLET PO SCH (08:20)
[2020-02-27] MEDS: FUROSEMIDE 20 MG TABLET PO SCH (08:20)
[2020-02-27] MEDS: OMEPRAZOLE 20 MG CAPSULE.DR PO SCH (08:21)
[2020-02-27] MEDS: GABAPENTIN 100 MG CAPSULE PO SCH ×3 (08:21→21:19)
[2020-02-27 08:30] VITALS: BP 116/77
[2020-02-27] MEDS ORDERED: WARFARIN 7.5 MG TABLET PO-COUM SCH (09:00)
[2020-02-27] MEDS ORDERED: DEXAMETHASONE 10 MG in SODIUM CHLORIDE 0.9% 50 ML IV ONE (10:00)
[2020-02-27] MEDS ORDERED: DEXAMETHASONE 4 MG/ML, 5ML IVPush ONE (10:00)
[2020-02-27] MEDS: ENOXAPARIN 120MG/0.8ML SQ SCH (14:03)
[2020-02-27] MEDS: LEVOFLOXACIN 500 MG TABLET PO SCH (14:03)
[2020-02-27] MEDS ORDERED: OMNIPAQUE 350 MG/ML, 100ML BOTTLE ONE (16:09)
[2020-02-27] MEDS: LACTOBACILLUS CHEW TABLET PO SCH ×2 (16:12→21:20)
[2020-02-27] MEDS: DEXAMETHASONE 4 MG/ML, 1ML IVPush SCH ×2 (16:12→21:19)
[2020-02-27] MEDS ORDERED: WARFARIN 3 MG TABLET PO-COUM ONE (18:00)
[2020-02-28] MEDS: DEXAMETHASONE 4 MG/ML, 1ML IVPush SCH ×2 (04:04→09:58)
[2020-02-28 04:12] VITALS: BP 101/57
[2020-02-28 04:52] LABS: BASOPHILS % (AUTO) 0 % (0-1); EOSINOPHILS # (AUTO) 0.02 x10^3/uL (0-0.4); EOSINOPHILS % (AUTO) 0 % (1-7); INTERNATIONAL NORMALIZED RATIO 1.86 (0.93-1.1); LYMPHOCYTES # (AUTO) 0.93 x10^3/uL (1-3.4); LYMPHOCYTES % (AUTO) 12 % (22-44); MD NO; MEAN CORPUSCULAR HEMOGLOBIN 28.6 pg (27.5-34.5); MEAN CORPUSCULAR VOLUME 89.5 fL (81-97); MEAN PLATELET VOLUME 9.1 fL (7.4-10.4); MONOCYTES # (AUTO) 0.02 x10^3/uL (0.2-0.8); MONOCYTES % (AUTO) 0 % (2-9); NEUTROPHILS # (AUTO) 6.81 x10^3/uL (1.8-6.8); NEUTROPHILS % (AUTO) 88 % (42-75); PLATELET COUNT 211 x10^3/uL (130-400); PROTHROMBIN TIME 19.3 Seconds (9.6-11.5); RED BLOOD COUNT 4.27 x10^6/uL (4.38-5.82); RED CELL DISTRIBUTION WIDTH 15.6 % (9.4-14.8)
[2020-02-28 04:59] LABS: CHLORIDE 98 mmol/L (98-107)
[2020-02-28 05:03] LABS: ANION GAP 3 mmol/L (5-15)
[2020-02-28] MEDS: LACTOBACILLUS CHEW TABLET PO SCH ×4 (06:14→19:52)
[2020-02-28] MEDS: ENOXAPARIN 120MG/0.8ML SQ SCH ×2 (06:14→17:38)
[2020-02-28] MEDS: GABAPENTIN 100 MG CAPSULE PO SCH ×3 (08:19→19:53)
[2020-02-28] MEDS: FUROSEMIDE 20 MG TABLET PO SCH (08:20)
[2020-02-28] MEDS: OMEPRAZOLE 20 MG CAPSULE.DR PO SCH (08:20)
[2020-02-28] MEDS: ALLOPURINOL 100 MG TABLET PO SCH (08:20)
[2020-02-28] MEDS: DEXAMETHASONE 4 MG TABLET PO SCH ×2 (13:37→17:38)
[2020-02-28] MEDS: LEVOFLOXACIN 500 MG TABLET PO SCH (13:38)
[2020-02-28] MEDS ORDERED: WARFARIN 2 MG TABLET PO-COUM ONE (17:34)
[2020-02-28] MEDS ORDERED: WARFARIN 7.5 MG TABLET PO-COUM ONE (18:00)
[2020-02-28 19:53] VITALS: BP 113/59
[2020-02-29 02:00] VITALS: BP 90/54
[2020-02-29] MEDS: LACTOBACILLUS CHEW TABLET PO SCH ×4 (05:31→20:10)
[2020-02-29] MEDS: ENOXAPARIN 120MG/0.8ML SQ SCH (05:31)
[2020-02-29 05:56] LABS: INTERNATIONAL NORMALIZED RATIO 2.89 (0.93-1.1); PROTHROMBIN TIME 30.1 Seconds (9.6-11.5)
[2020-02-29] MEDS: ALLOPURINOL 100 MG TABLET PO SCH (07:56)
[2020-02-29] MEDS: FUROSEMIDE 20 MG TABLET PO SCH (07:56)
[2020-02-29] MEDS: DEXAMETHASONE 4 MG TABLET PO SCH ×3 (07:56→16:21)
[2020-02-29] MEDS: GABAPENTIN 100 MG CAPSULE PO SCH ×3 (07:56→20:10)
[2020-02-29] MEDS: OMEPRAZOLE 20 MG CAPSULE.DR PO SCH (07:56)
[2020-02-29 08:01] VITALS: BP 104/66
[2020-02-29 09:55] VITALS: BP 112/83
[2020-02-29] MEDS: LEVOFLOXACIN 500 MG TABLET PO SCH (14:20)
[2020-02-29 14:23] VITALS: BP 115/76
[2020-02-29] MEDS ORDERED: WARFARIN 1 MG TABLET PO-COUM ONE (18:00)
[2020-02-29 20:08] VITALS: BP 122/82
[2020-03-01 00:44] VITALS: BP 113/70
[2020-03-01] MEDS: LACTOBACILLUS CHEW TABLET PO SCH ×4 (05:25→21:34)
[2020-03-01 06:03] LABS: INTERNATIONAL NORMALIZED RATIO 2.45 (0.93-1.1); PROTHROMBIN TIME 25.5 Seconds (9.6-11.5)
[2020-03-01 08:08] VITALS: BP 98/48
[2020-03-01] MEDS: ACETAMINOPHEN 325 MG TABLET PO PRN (09:00)
[2020-03-01] MEDS: ALLOPURINOL 100 MG TABLET PO SCH (09:00)
[2020-03-01] MEDS: DEXAMETHASONE 4 MG TABLET PO SCH ×3 (09:00→17:09)
[2020-03-01] MEDS: GABAPENTIN 100 MG CAPSULE PO SCH ×3 (09:00→21:35)
[2020-03-01] MEDS: FUROSEMIDE 20 MG TABLET PO SCH (09:01)
[2020-03-01] MEDS: OMEPRAZOLE 20 MG CAPSULE.DR PO SCH (09:01)
[2020-03-01 12:27] VITALS: BP 116/80
[2020-03-01] MEDS ORDERED: WARFARIN 7.5 MG TABLET PO-COUM ONE (18:00)
[2020-03-01 18:59] VITALS: BP 108/68
[2020-03-02 00:49] VITALS: BP 116/82
[2020-03-02] MEDS: LACTOBACILLUS CHEW TABLET PO SCH ×4 (05:44→21:42)
[2020-03-02 06:10] LABS: INTERNATIONAL NORMALIZED RATIO 1.82 (0.93-1.1); PROTHROMBIN TIME 18.9 Seconds (9.6-11.5)
[2020-03-02 06:35] VITALS: BP 101/68
[2020-03-02] MEDS: OMEPRAZOLE 20 MG CAPSULE.DR PO SCH (08:40)
[2020-03-02] MEDS: ALLOPURINOL 100 MG TABLET PO SCH (08:40)
[2020-03-02] MEDS: DEXAMETHASONE 4 MG TABLET PO SCH ×3 (08:40→16:35)
[2020-03-02] MEDS: FUROSEMIDE 20 MG TABLET PO SCH (08:40)
[2020-03-02] MEDS: GABAPENTIN 100 MG CAPSULE PO SCH ×3 (08:41→21:43)
[2020-03-02 12:15] VITALS: BP 99/67
[2020-03-02] MEDS ORDERED: WARFARIN 5 MG TABLET PO-COUM ONE (16:27)
[2020-03-02] MEDS ORDERED: WARFARIN 7.5 MG TABLET PO-COUM ONE (18:00)
[2020-03-02 20:07] VITALS: BP 111/68
[2020-03-03 00:53] VITALS: BP 108/72
[2020-03-03] MEDS: DEXAMETHASONE 4 MG TABLET PO SCH ×3 (06:09→17:43)
[2020-03-03] MEDS: LACTOBACILLUS CHEW TABLET PO SCH ×4 (06:09→21:16)
[2020-03-03 07:07] LABS: INTERNATIONAL NORMALIZED RATIO 1.78 (0.93-1.1); PROTHROMBIN TIME 18.4 Seconds (9.6-11.5)
[2020-03-03 09:00] VITALS: BP 116/80
[2020-03-03] MEDS: OMEPRAZOLE 20 MG CAPSULE.DR PO SCH (09:49)
[2020-03-03] MEDS: ALLOPURINOL 100 MG TABLET PO SCH (09:50)
[2020-03-03] MEDS: GABAPENTIN 100 MG CAPSULE PO SCH ×3 (09:50→21:16)
[2020-03-03] MEDS: FUROSEMIDE 20 MG TABLET PO SCH (09:50)
[2020-03-03 12:25] VITALS: BP 100/52
[2020-03-03] MEDS ORDERED: WARFARIN 5 MG TABLET PO-COUM ONE (17:39)
[2020-03-03] MEDS ORDERED: WARFARIN 7.5 MG TABLET PO-COUM ONE (18:00)
[2020-03-03 19:41] VITALS: BP 110/70
[2020-03-04 00:31] VITALS: BP 100/65
[2020-03-04] MEDS: LACTOBACILLUS CHEW TABLET PO SCH ×4 (05:31→20:23)
[2020-03-04 06:43] LABS: INTERNATIONAL NORMALIZED RATIO 1.7 (0.93-1.1); PROTHROMBIN TIME 17.6 Seconds (9.6-11.5)
[2020-03-04 08:45] VITALS: BP 109/63
[2020-03-04] MEDS: GABAPENTIN 100 MG CAPSULE PO SCH ×3 (08:46→20:23)
[2020-03-04] MEDS: DEXAMETHASONE 4 MG TABLET PO SCH ×3 (08:46→17:09)
[2020-03-04] MEDS: ALLOPURINOL 100 MG TABLET PO SCH (08:47)
[2020-03-04] MEDS: FUROSEMIDE 20 MG TABLET PO SCH (08:47)
[2020-03-04] MEDS: OMEPRAZOLE 20 MG CAPSULE.DR PO SCH (08:47)
[2020-03-04 14:08] VITALS: BP 91/56
[2020-03-04] MEDS ORDERED: WARFARIN 5 MG TABLET PO-COUM ONE (17:04)
[2020-03-04] MEDS ORDERED: WARFARIN 7.5 MG TABLET PO-COUM ONE (18:00)
[2020-03-04 18:41] VITALS: BP 100/67
[2020-03-05 01:21] VITALS: BP 109/71
[2020-03-05] MEDS: LACTOBACILLUS CHEW TABLET PO SCH ×4 (05:23→21:07)
[2020-03-05 05:44] LABS: INTERNATIONAL NORMALIZED RATIO 3.6 (0.93-1.1)
[2020-03-05 05:46] LABS: PROTHROMBIN TIME 37.6 Seconds (9.6-11.5)
[2020-03-05 07:31] VITALS: BP 117/78
[2020-03-05] MEDS ORDERED: HOLD COUMADIN MC PRN (08:30)
[2020-03-05] MEDS: ALLOPURINOL 100 MG TABLET PO SCH (08:48)
[2020-03-05] MEDS: OMEPRAZOLE 20 MG CAPSULE.DR PO SCH (08:48)
[2020-03-05] MEDS: FUROSEMIDE 20 MG TABLET PO SCH (08:48)
[2020-03-05] MEDS: DEXAMETHASONE 4 MG TABLET PO SCH ×3 (08:48→17:49)
[2020-03-05] MEDS: GABAPENTIN 100 MG CAPSULE PO SCH ×3 (08:48→21:07)
[2020-03-05 10:57] VITALS: BP 117/79
[2020-03-05 15:00] VITALS: BP 117/78
[2020-03-05 19:25] VITALS: BP 128/79
[2020-03-06 01:48] VITALS: BP 100/66
[2020-03-06 03:54] LABS: INTERNATIONAL NORMALIZED RATIO 1.75 (0.93-1.1); PROTHROMBIN TIME 18.1 Seconds (9.6-11.5)
[2020-03-06] MEDS: LACTOBACILLUS CHEW TABLET PO SCH ×4 (06:10→20:45)
[2020-03-06 08:06] VITALS: BP 152/114
[2020-03-06] MEDS: OMEPRAZOLE 20 MG CAPSULE.DR PO SCH (08:23)
[2020-03-06] MEDS: GABAPENTIN 100 MG CAPSULE PO SCH ×3 (08:23→20:45)
[2020-03-06] MEDS: FUROSEMIDE 20 MG TABLET PO SCH (08:24)
[2020-03-06] MEDS: DEXAMETHASONE 4 MG TABLET PO SCH (08:24)
[2020-03-06] MEDS: ALLOPURINOL 100 MG TABLET PO SCH (08:24)
[2020-03-06] MEDS ORDERED: DEXAMETHASONE 4 MG/ML, 5ML IVPush ONE (08:30)
[2020-03-06] MEDS ORDERED: DEXAMETHASONE 10 MG in SODIUM CHLORIDE 0.9% 50 ML IV ONE (09:00)
[2020-03-06 13:07] VITALS: BP 113/73
[2020-03-06] MEDS ORDERED: DEXAMETHASONE 4 MG/ML, 5ML IVPush SCH (16:00)
[2020-03-06] MEDS: DEXAMETHASONE 10 MG in SODIUM CHLORIDE 0.9% 50 ML IV SCH ×2 (17:53→23:55)
[2020-03-06] MEDS ORDERED: WARFARIN 5 MG TABLET PO-COUM ONE (18:00)
[2020-03-06] MEDS ORDERED: DEXAMETHASONE 10 MG in SODIUM CHLORIDE 0.9% 50 ML IV SCH (18:00)
[2020-03-06 18:19] VITALS: BP 98/63
[2020-03-07 01:45] VITALS: BP 105/71
[2020-03-07 05:04] LABS: INTERNATIONAL NORMALIZED RATIO 1.29 (0.93-1.1); PROTHROMBIN TIME 13.3 Seconds (9.6-11.5)
[2020-03-07] MEDS: OMEPRAZOLE 20 MG CAPSULE.DR PO SCH (08:32)
[2020-03-07] MEDS: GABAPENTIN 100 MG CAPSULE PO SCH ×3 (08:32→21:02)
[2020-03-07] MEDS: FUROSEMIDE 20 MG TABLET PO SCH (08:32)
[2020-03-07] MEDS: ALLOPURINOL 100 MG TABLET PO SCH (08:32)
[2020-03-07] MEDS: LACTOBACILLUS CHEW TABLET PO SCH ×4 (08:32→21:02)
[2020-03-07] MEDS: DEXAMETHASONE 10 MG in SODIUM CHLORIDE 0.9% 50 ML IV SCH ×3 (09:06→21:05)
[2020-03-07] MEDS: Enoxaparin 1 mg/kg protocol SQ SCH ×2 (09:30→20:47)
[2020-03-07 09:31] VITALS: BP 115/79
[2020-03-07] MEDS: ENOXAPARIN 120MG/0.8ML SQ SCH ×2 (11:59→21:03)
[2020-03-07 14:21] VITALS: BP_SYST 117
[2020-03-07] MEDS ORDERED: WARFARIN 7.5 MG TABLET PO-COUM ONE (18:00)
[2020-03-07] MEDS ORDERED: WARFARIN 5 MG TABLET PO-COUM ONE (18:26)
[2020-03-07 20:59] VITALS: BP 122/72
[2020-03-08 02:55] VITALS: BP 96/67
[2020-03-08 04:57] LABS: INTERNATIONAL NORMALIZED RATIO 1.37 (0.93-1.1); PROTHROMBIN TIME 14.2 Seconds (9.6-11.5)
[2020-03-08] MEDS: LACTOBACILLUS CHEW TABLET PO SCH ×4 (05:28→21:51)
[2020-03-08 07:29] VITALS: BP 111/68
[2020-03-08] MEDS: GABAPENTIN 100 MG CAPSULE PO SCH ×3 (09:23→21:51)
[2020-03-08] MEDS: FUROSEMIDE 20 MG TABLET PO SCH (09:23)
[2020-03-08] MEDS: OMEPRAZOLE 20 MG CAPSULE.DR PO SCH (09:23)
[2020-03-08] MEDS: ENOXAPARIN 120MG/0.8ML SQ SCH ×2 (09:23→21:51)
[2020-03-08] MEDS: ALLOPURINOL 100 MG TABLET PO SCH (09:23)
[2020-03-08] MEDS: DEXAMETHASONE 10 MG in SODIUM CHLORIDE 0.9% 50 ML IV SCH ×3 (09:24→21:51)
[2020-03-08] MEDS: Enoxaparin 1 mg/kg protocol SQ SCH ×2 (09:30→21:30)
[2020-03-08 14:51] VITALS: BP 120/80
[2020-03-08] MEDS: ACETAMINOPHEN 325 MG TABLET PO PRN (16:33)
[2020-03-08] MEDS ORDERED: WARFARIN 10 MG TABLET PO-COUM ONE (18:00)
[2020-03-08 20:17] VITALS: BP 138/84
[2020-03-09 00:10] VITALS: BP 132/70
[2020-03-09 04:36] LABS: BASOPHILS # (AUTO) 0.07 x10^3/uL (0-0.1); BASOPHILS % (AUTO) 1 % (0-1); EOSINOPHILS % (AUTO) 0 % (1-7); LYMPHOCYTES % (AUTO) 6 % (22-44); MD NO; MEAN CORPUSCULAR HEMOGLOBIN 28.9 pg (27.5-34.5); MEAN CORPUSCULAR HGB CONC 32.3 g/dL (33.2-36.2); MEAN CORPUSCULAR VOLUME 89.4 fL (81-97); MEAN PLATELET VOLUME 9.4 fL (7.4-10.4); MONOCYTES # (AUTO) 0.13 x10^3/uL (0.2-0.8); MONOCYTES % (AUTO) 2 % (2-9); NEUTROPHILS # (AUTO) 6.54 x10^3/uL (1.8-6.8); NEUTROPHILS % (AUTO) 92 % (42-75); PLATELET COUNT 148 x10^3/uL (130-400); RED BLOOD COUNT 4.82 x10^6/uL (4.38-5.82); RED CELL DISTRIBUTION WIDTH 15.1 % (9.4-14.8)
[2020-03-09 04:45] LABS: INTERNATIONAL NORMALIZED RATIO 2.15 (0.93-1.1); PROTHROMBIN TIME 22.3 Seconds (9.6-11.5)
[2020-03-09 04:49] LABS: ALANINE AMINOTRANSFERASE 117 U/L (12-78); ALBUMIN 2.8 g/dL (3.4-5.0); CALCIUM 8.5 mg/dL (8.5-10.1)
[2020-03-09 04:51] LABS: ALKALINE PHOSPHATASE 51 U/L (45-117); BILIRUBIN,TOTAL 0.4 mg/dL (0.2-1.0); CREATININE 0.85 mg/dL (0.7-1.3); TOTAL PROTEIN 6.8 g/dL (6.4-8.2)
[2020-03-09 05:02] LABS: ANION GAP 2 mmol/L (5-15); CHLORIDE 97 mmol/L (98-107)
[2020-03-09] MEDS: LACTOBACILLUS CHEW TABLET PO SCH ×4 (06:09→21:11)
[2020-03-09 07:16] VITALS: BP 111/76
[2020-03-09] MEDS: OMEPRAZOLE 20 MG CAPSULE.DR PO SCH (08:45)
[2020-03-09] MEDS: DEXAMETHASONE 10 MG in SODIUM CHLORIDE 0.9% 50 ML IV SCH ×3 (08:45→21:12)
[2020-03-09] MEDS: FUROSEMIDE 20 MG TABLET PO SCH (08:46)
[2020-03-09] MEDS: GABAPENTIN 100 MG CAPSULE PO SCH ×3 (08:46→21:12)
[2020-03-09] MEDS: Enoxaparin 1 mg/kg protocol SQ SCH (08:46)
[2020-03-09] MEDS: ENOXAPARIN 120MG/0.8ML SQ SCH ×2 (08:46→21:12)
[2020-03-09] MEDS: ALLOPURINOL 100 MG TABLET PO SCH (08:46)
[2020-03-09 12:17] LABS: O2 FLOW 3 L/min
[2020-03-09 12:49] VITALS: BP 127/84
[2020-03-09] MEDS ORDERED: WARFARIN 5 MG TABLET PO-COUM ONE (18:00)
[2020-03-10 03:43] VITALS: BP 121/70
[2020-03-10 04:54] LABS: INTERNATIONAL NORMALIZED RATIO 2.46 (0.93-1.1); PROTHROMBIN TIME 25.6 Seconds (9.6-11.5)
[2020-03-10 05:08] LABS: ALANINE AMINOTRANSFERASE 106 U/L (12-78); ALBUMIN 2.9 g/dL (3.4-5.0); ALKALINE PHOSPHATASE 51 U/L (45-117); BILIRUBIN,TOTAL 0.5 mg/dL (0.2-1.0); CALCIUM 8.6 mg/dL (8.5-10.1); CREATININE 0.67 mg/dL (0.7-1.3); TOTAL PROTEIN 6.9 g/dL (6.4-8.2)
[2020-03-10 05:18] LABS: ANION GAP 3 mmol/L (5-15); CHLORIDE 96 mmol/L (98-107)
[2020-03-10] MEDS: LACTOBACILLUS CHEW TABLET PO SCH ×4 (06:29→22:15)
[2020-03-10] MEDS: ENOXAPARIN 120MG/0.8ML SQ SCH (08:39)
[2020-03-10] MEDS: FUROSEMIDE 20 MG TABLET PO SCH (08:40)
[2020-03-10] MEDS: OMEPRAZOLE 20 MG CAPSULE.DR PO SCH (08:40)
[2020-03-10] MEDS: DEXAMETHASONE 10 MG in SODIUM CHLORIDE 0.9% 50 ML IV SCH ×3 (08:40→22:16)
[2020-03-10] MEDS: GABAPENTIN 100 MG CAPSULE PO SCH ×3 (08:40→22:16)
[2020-03-10] MEDS: ALLOPURINOL 100 MG TABLET PO SCH (08:41)
[2020-03-10 13:30] VITALS: BP 118/78
[2020-03-10] MEDS ORDERED: WARFARIN 5 MG TABLET PO-COUM ONE (18:00)
[2020-03-10 18:57] VITALS: BP 115/73
[2020-03-11 00:36] VITALS: BP 117/72
[2020-03-11 04:00] VITALS: BP 106/69
[2020-03-11] MEDS: LACTOBACILLUS CHEW TABLET PO SCH ×4 (05:37→20:01)
[2020-03-11 05:49] LABS: INTERNATIONAL NORMALIZED RATIO 2.41 (0.93-1.1)
[2020-03-11 07:50] VITALS: BP 118/77
[2020-03-11] MEDS: ALLOPURINOL 100 MG TABLET PO SCH (08:31)
[2020-03-11] MEDS: DEXAMETHASONE 10 MG in SODIUM CHLORIDE 0.9% 50 ML IV SCH ×2 (08:31→16:08)
[2020-03-11] MEDS: OMEPRAZOLE 20 MG CAPSULE.DR PO SCH (08:32)
[2020-03-11] MEDS: GABAPENTIN 100 MG CAPSULE PO SCH ×3 (08:32→20:01)
[2020-03-11] MEDS: FUROSEMIDE 20 MG TABLET PO SCH (08:32)
[2020-03-11 12:34] VITALS: BP 126/83
[2020-03-11] MEDS ORDERED: WARFARIN 5 MG TABLET PO-COUM SCH (18:00)
[2020-03-11 19:15] VITALS: BP 118/72
[2020-03-12] MEDS: DEXAMETHASONE 10 MG in SODIUM CHLORIDE 0.9% 50 ML IV SCH ×3 (00:26→15:46)
[2020-03-12 01:25] VITALS: BP 132/69
[2020-03-12] MEDS: LACTOBACILLUS CHEW TABLET PO SCH ×4 (05:07→20:57)
[2020-03-12 06:15] LABS: INTERNATIONAL NORMALIZED RATIO 2.25 (0.93-1.1); PROTHROMBIN TIME 23.4 Seconds (9.6-11.5)
[2020-03-12 06:53] VITALS: BP 115/67
[2020-03-12] MEDS: ALLOPURINOL 100 MG TABLET PO SCH (08:01)
[2020-03-12] MEDS: FUROSEMIDE 20 MG TABLET PO SCH (08:01)
[2020-03-12] MEDS: GABAPENTIN 100 MG CAPSULE PO SCH ×3 (08:01→20:57)
[2020-03-12] MEDS: OMEPRAZOLE 20 MG CAPSULE.DR PO SCH (08:02)
[2020-03-12 12:03] VITALS: BP 128/88
[2020-03-12] MEDS ORDERED: WARFARIN 3 MG TABLET PO-COUM SCH (18:00)
[2020-03-12 18:51] VITALS: BP 121/73
[2020-03-13] MEDS: DEXAMETHASONE 10 MG in SODIUM CHLORIDE 0.9% 50 ML IV SCH ×3 (00:09→16:37)
[2020-03-13 00:17] VITALS: BP 106/65
[2020-03-13] MEDS: LACTOBACILLUS CHEW TABLET PO SCH ×4 (05:16→19:55)
[2020-03-13 06:13] LABS: INTERNATIONAL NORMALIZED RATIO 2.19 (0.93-1.1); PROTHROMBIN TIME 22.7 Seconds (9.6-11.5)
[2020-03-13 07:07] VITALS: BP 120/73
[2020-03-13] MEDS: OMEPRAZOLE 20 MG CAPSULE.DR PO SCH (07:52)
[2020-03-13] MEDS: ALLOPURINOL 100 MG TABLET PO SCH (07:53)
[2020-03-13] MEDS: GABAPENTIN 100 MG CAPSULE PO SCH ×3 (07:53→19:55)
[2020-03-13] MEDS: FUROSEMIDE 20 MG TABLET PO SCH (07:53)
[2020-03-13 12:34] VITALS: BP 145/85
[2020-03-13] MEDS ORDERED: WARFARIN 3 MG TABLET PO-COUM SCH (18:00)
[2020-03-13 19:15] VITALS: BP 111/75
[2020-03-14 00:42] VITALS: BP 117/75
[2020-03-14] MEDS: DEXAMETHASONE 10 MG in SODIUM CHLORIDE 0.9% 50 ML IV SCH ×4 (00:50→23:50)
[2020-03-14] MEDS: LACTOBACILLUS CHEW TABLET PO SCH ×4 (05:17→21:20)
[2020-03-14 05:38] LABS: INTERNATIONAL NORMALIZED RATIO 2.37 (0.93-1.1); PROTHROMBIN TIME 24.6 Seconds (9.6-11.5)
[2020-03-14 06:34] VITALS: BP 99/60
[2020-03-14] MEDS: ALLOPURINOL 100 MG TABLET PO SCH (08:50)
[2020-03-14] MEDS: FUROSEMIDE 20 MG TABLET PO SCH (08:50)
[2020-03-14] MEDS: GABAPENTIN 100 MG CAPSULE PO SCH ×3 (08:50→21:20)
[2020-03-14] MEDS: OMEPRAZOLE 20 MG CAPSULE.DR PO SCH (08:50)
[2020-03-14 14:31] VITALS: BP 126/89
[2020-03-14] MEDS ORDERED: WARFARIN 3 MG TABLET PO-COUM SCH (18:00)
[2020-03-14 21:18] VITALS: BP 121/70
[2020-03-15 00:22] VITALS: BP 100/63
[2020-03-15] MEDS: LACTOBACILLUS CHEW TABLET PO SCH ×4 (05:20→21:02)
[2020-03-15 07:32] LABS: INTERNATIONAL NORMALIZED RATIO 2.6 (0.93-1.1)
[2020-03-15 07:55] VITALS: BP 106/70
[2020-03-15] MEDS: ALLOPURINOL 100 MG TABLET PO SCH (08:29)
[2020-03-15] MEDS: GABAPENTIN 100 MG CAPSULE PO SCH ×3 (08:29→21:02)
[2020-03-15] MEDS: DEXAMETHASONE 10 MG in SODIUM CHLORIDE 0.9% 50 ML IV SCH ×2 (08:29→16:33)
[2020-03-15] MEDS: FUROSEMIDE 20 MG TABLET PO SCH (08:29)
[2020-03-15] MEDS: OMEPRAZOLE 20 MG CAPSULE.DR PO SCH (08:29)
[2020-03-15 13:44] VITALS: BP 133/76
[2020-03-15] MEDS ORDERED: WARFARIN 2 MG TABLET PO-COUM ONE (18:00)
[2020-03-15 19:46] VITALS: BP 120/71
[2020-03-16 00:13] VITALS: BP 134/77
[2020-03-16] MEDS: LACTOBACILLUS CHEW TABLET PO SCH ×3 (05:44→15:47)
[2020-03-16 06:16] LABS: INTERNATIONAL NORMALIZED RATIO 2.47 (0.93-1.1); PROTHROMBIN TIME 25.7 Seconds (9.6-11.5)
[2020-03-16 07:52] VITALS: BP 132/80
[2020-03-16] MEDS: DEXAMETHASONE 10 MG in SODIUM CHLORIDE 0.9% 50 ML IV SCH ×3 (08:23→15:47)
[2020-03-16] MEDS: GABAPENTIN 100 MG CAPSULE PO SCH ×2 (08:23→15:47)
[2020-03-16] MEDS: FUROSEMIDE 20 MG TABLET PO SCH (08:23)
[2020-03-16] MEDS: ALLOPURINOL 100 MG TABLET PO SCH (08:23)
[2020-03-16] MEDS: OMEPRAZOLE 20 MG CAPSULE.DR PO SCH (08:23)
[2020-03-16 12:58] VITALS: BP 133/83
[2020-03-16] MEDS: ACETAMINOPHEN 325 MG TABLET PO PRN (15:50)
[2020-03-16] MEDS ORDERED: WARFARIN 3 MG TABLET PO-COUM ONE (18:00)
== END 2020-03-16 19:34 | disposition short-term general hospital (02) | DRG 143 ==
LOC: ICU 15:49 → 4EST 02-29 09:45 → 4WST 03-01 17:46 → 3N 03-05 10:27 → 4WST 03-05 10:35 → 3N 03-05 10:50 → CCU 03-09 13:31 → 4WST 03-10 11:55
PROVIDERS: ADMIT Internal Medicine; ATTEND Family Medicine
DX: J39.8 Other specified diseases of upper respiratory tract (principal); U07.1 COVID-19; J38.6 Stenosis of larynx; R06.1 Stridor; B95.2 Enterococcus as the cause of diseases classified elsewhere; D68.69 Other thrombophilia; D69.6 Thrombocytopenia, unspecified; E66.2 Morbid (severe) obesity with alveolar hypoventilation; G47.33 Obstructive sleep apnea (adult) (pediatric); G89.29 Other chronic pain; I07.1 Rheumatic tricuspid insufficiency; I26.99 Other pulmonary embolism without acute cor pulmonale; I27.20 Pulmonary hypertension, unspecified; I50.43 Acute on chronic combined systolic (congestive) and diastolic (congestive) heart failure; J93.9 Pneumothorax, unspecified; J96.10 Chronic respiratory failure, unspecified whether with hypoxia or hypercapnia; K29.00 Acute gastritis without bleeding; M10.9 Gout, unspecified; N45.2 Orchitis; Y95 Nosocomial condition; Z79.01 Long term (current) use of anticoagulants; Z86.711 Personal history of pulmonary embolism; Z86.718 Personal history of other venous thrombosis and embolism; Z87.01 Personal history of pneumonia (recurrent); Z91.14 Patient's other noncompliance with medication regimen; Z91.19 Patient's noncompliance with other medical treatment and regimen; Z68.42 Body mass index [BMI] 45.0-49.9, adult; Z99.11 Dependence on respirator [ventilator] status
CPT/HCPCS: 36415; 36600; 70491; 71045; 80048; 80053; 82803; 83735; 84100; 85025; 85610; 87081; 87635; G0378; J1100; J1650; Q9967

== ENCOUNTER 2020-05-11 21:05 | Inpatient (IN) | payer MEDICAID ==
[~2020-05-11] VITALS: Ht 170.2 cm; Wt 125.0 kg
[~2020-05-11 21:05] MED LIST changes: +FURO20TA3 PO; +OMEP40CA42 PO; +WARF7.5T PO
[2020-05-11] MEDS ORDERED: CEFEPIME 1 GM in DEXTROSE 5% 50 ML IV ONE (22:00)
[2020-05-11] MEDS ORDERED: VANCOMYCIN PER PHARMACY MC PRN (22:00)
[2020-05-11 22:13] LABS: BASOPHILS % (AUTO) 0 % (0-1); EOSINOPHILS % (AUTO) 0 % (1-7); LYMPHOCYTES % (AUTO) 5 % (22-44); MEAN CORPUSCULAR HEMOGLOBIN 26.8 pg (27.5-34.5); MEAN CORPUSCULAR HGB CONC 31.5 g/dL (33.2-36.2); MEAN PLATELET VOLUME 9.8 fL (7.4-10.4); MONOCYTES % (AUTO) 4 % (2-9); NEUTROPHILS % (AUTO) 91 % (42-75); PLATELET COUNT 173 x10^3/uL (130-400); RED BLOOD COUNT 6.23 x10^6/uL (4.38-5.82); RED CELL DISTRIBUTION WIDTH 16.2 % (9.4-14.8)
[2020-05-11 22:20] LABS: ALANINE AMINOTRANSFERASE 36 U/L (12-78); ANION GAP 6 mmol/L (5-15); CALCIUM 8.4 mg/dL (8.5-10.1); CHLORIDE 101 mmol/L (98-107); CREATININE 3.05 mg/dL (0.7-1.3)
[2020-05-11] MEDS ORDERED: SODIUM CHLORIDE 0.9% 1,000ML IVBOLUS ONE (22:30)
[2020-05-11] MEDS ORDERED: VANCOMYCIN 2,500 MG in SODIUM CHLORIDE 0.9% 500 ML IV ONE (22:30)
[2020-05-11 22:37] LABS: ALKALINE PHOSPHATASE 83 U/L (45-117); BILIRUBIN,TOTAL 2.8 mg/dL (0.2-1.0); TOTAL PROTEIN 9.5 g/dL (6.4-8.2)
[2020-05-11 22:39] LABS: MD SCAN
[2020-05-11 22:40] LABS: TROPONIN I 0.453 ng/mL (0.000-0.045)
[2020-05-11] MEDS ORDERED: ACETAMINOPHEN 500 MG TABLET ONE (22:48)
[2020-05-11] MEDS ORDERED: ACETAMINOPHEN 500 MG TABLET PO ONE (23:00)
--- NOTE | 2020-05-11 23:12 | NUR ---
Patient comes in with complaints of SOB x1 month worse tonight. Patient noted to have temp of 102.3, tachy and low bp. MD at bedside. Per MD wants to give 1L of fluid at this time d/t hx and "not wanting to flood him out." IV estbalished, meds given per SEP. Patient on quality assurance monitor and continous oxygen monitor. O2 @ this time is 93% on 6L
[2020-05-11] MEDS ORDERED: methylPREDNISolone SOD SUCC 125 MG/2 ML ONE (23:34)
--- NOTE | 2020-05-11 23:39 | NUR ---
Patient O2 noted to dropped down to 75% on 6l NC, NRB placed back on at 15L. O2 went back up to 99%. Patient then swtich to Oxymask @ 8L. Noted to be stridorous with inhale and exhale. MD aware and at bedside.
[2020-05-12] MEDS ORDERED: methylPREDNISolone SOD SUCC 125 MG/2 ML IVPush ONE
[2020-05-12] MEDS ORDERED: VANCOMYCIN PER PHARMACY MC PRN
[2020-05-12] MEDS ORDERED: DOCUSATE 100 MG CAPSULE PO PRN (00:30)
[2020-05-12] MEDS ORDERED: GUAIFENESIN/DM 200-20MG, 10ML UDC PO PRN (00:30)
[2020-05-12] MEDS ORDERED: SODIUM CHLORIDE 0.9% 1,000 ML IV SCH (00:30)
--- NOTE | 2020-05-12 00:35 | NUR ---
BREAK RN -- PT RESTING IN BED WITH OXI MASK ON, PT DENIED ANY NEEDS AT THIS TIME, PT VSS
[2020-05-12] MEDS ORDERED: PHARMACOKINETIC MONITORING MC PRN (02:00)
[2020-05-12 02:53] LABS: INTERNATIONAL NORMALIZED RATIO 1.82 (0.93-1.1); PROTHROMBIN TIME 19.2 Seconds (9.6-11.5)
[2020-05-12] MEDS ORDERED: NOREPINEPHRINE 1 MG/ML, 4ML ONE (03:19)
[2020-05-12] MEDS ORDERED: SODIUM CHLORIDE 0.9%, 500ML IVBOLUS ONE (03:30)
[2020-05-12] MEDS ORDERED: NOREPINEPHRINE 8 MG in SODIUM CHLORIDE 0.9% 242 ML IV PRN (03:30)
[2020-05-12 04:00] VITALS: BP 108/65
[2020-05-12] MEDS ORDERED: LIDOCAINE-MPF 1%, 2ML ENDO PRN (04:00)
[2020-05-12] MEDS ORDERED: LACTULOSE 20 GM/30 ML UDC NG PRN (04:00)
[2020-05-12] MEDS ORDERED: PROPOFOL 100 ML IV PRN (04:00)
[2020-05-12] MEDS ORDERED: PHARMACY MAY ADJ FOR RENAL FX MC SCH (04:00)
[2020-05-12] MEDS ORDERED: FENTANYL PF 100 MCG/2ML IVPush PRN (04:00)
[2020-05-12] MEDS ORDERED: PROPOFOL 10 MG/ML, 100ML IV ONE (05:00)
[2020-05-12] MEDS ORDERED: VECURONIUM 10 MG ONE (05:00)
[2020-05-12] MEDS ORDERED: ETOMIDATE 20 MG/10 ML ONE (05:00)
[2020-05-12 05:43] VITALS: BP 100/54
[2020-05-12 08:00] LABS: MEAN PLATELET VOLUME 9.8 fL (7.4-10.4); PLATELET COUNT 166 x10^3/uL (130-400); RED BLOOD COUNT 5.94 x10^6/uL (4.38-5.82); RED CELL DISTRIBUTION WIDTH 16.2 % (9.4-14.8)
[2020-05-12 08:09] LABS: ALANINE AMINOTRANSFERASE 33 U/L (12-78); ALBUMIN 2.5 g/dL (3.4-5.0); ANION GAP 9 mmol/L (5-15); CALCIUM 8.1 mg/dL (8.5-10.1); CHLORIDE 106 mmol/L (98-107); CREATININE 2.31 mg/dL (0.7-1.3)
[2020-05-12 08:11] LABS: ALKALINE PHOSPHATASE 74 U/L (45-117); BILIRUBIN,TOTAL 2.9 mg/dL (0.2-1.0); TOTAL PROTEIN 8.5 g/dL (6.4-8.2)
[2020-05-12 08:45] LABS: MD YES
[2020-05-12 08:47] LABS: BANDS%(MANUAL) 5 % (0-7); LYMPHS% (MANUAL) 3 % (22-44); MONOS% (MANUAL) 1 % (2-9); SEGS% (MANUAL) 91 % (42-75)
[2020-05-12 08:48] LABS: <PLATELET ESTIMATE> ADEQUATE; <PLT MORPHOLOGY> NORMAL PLT MORPH; ANISOCYTOSIS 1+; PMNS WITH VACUOLES 1+; POLYCHROMASIA 1+
[2020-05-12] MEDS ORDERED: OMEPRAZOLE 20 MG CAPSULE.DR PO SCH (09:00)
[2020-05-12 09:35] LABS: CHLORIDE,URINE RANDOM 35 mmol/L; POTASSIUM,URINE RANDOM 37 mmol/L; SODIUM,URINE RANDOM 39 mmol/L
[2020-05-12 09:57] LABS: AMPHETAMINE SCREEN, URINE Negative (Negative); BARBITURATE SCREEN, URINE Negative (Negative); BENZODIAZEPINE SCREEN, URINE Negative (Negative); CANNABINOID SCREEN, URINE Negative (Negative); COCAINE SCREEN, URINE Negative (Negative); METHADONE SCREEN, URINE Negative (Negative); OPIATE SCREEN, URINE Negative (Negative)
[2020-05-12] MEDS: GABAPENTIN 100 MG CAPSULE PO SCH ×3 (10:03→21:00)
[2020-05-12] MEDS: FAMOTIDINE 20 MG/2 ML IVPush SCH (10:03)
[2020-05-12] MEDS: CEFEPIME 1 GM in DEXTROSE 5% 50 ML IV SCH ×2 (11:34→23:00)
[2020-05-12] MEDS: methylPREDNISolone SOD SUCC 125 MG/2 ML IVPush SCH (12:17)
--- NOTE | 2020-05-12 14:26 | NUR ---
TF goals: off and on propofol: Vital AF 1.2 w/ end goal rate of 85mL/hr Addendum: 05/12/20 at [address] Amended: Links added.
[2020-05-12 16:07] LABS: C-REACTIVE PROTEIN, QUANT > 19.00 mg/dL (0.02-0.49)
[2020-05-12] MEDS ORDERED: WARFARIN 10 MG TABLET PO-COUM ONE (18:00)
[2020-05-13] MEDS: methylPREDNISolone SOD SUCC 125 MG/2 ML IVPush SCH ×3 (01:53→23:47)
[2020-05-13 04:00] VITALS: BP 123/71
[2020-05-13 07:36] LABS: MEAN CORPUSCULAR HEMOGLOBIN 26.8 pg (27.5-34.5); MEAN CORPUSCULAR HGB CONC 32.1 g/dL (33.2-36.2); MEAN PLATELET VOLUME 9.5 fL (7.4-10.4); PLATELET COUNT 133 x10^3/uL (130-400); RED BLOOD COUNT 5.31 x10^6/uL (4.38-5.82); RED CELL DISTRIBUTION WIDTH 15.6 % (9.4-14.8)
[2020-05-13 07:43] LABS: ANION GAP 4 mmol/L (5-15); CALCIUM 8.8 mg/dL (8.5-10.1); CHLORIDE 110 mmol/L (98-107)
[2020-05-13 07:59] LABS: INTERNATIONAL NORMALIZED RATIO 2.34 (0.93-1.1); PROTHROMBIN TIME 24.6 Seconds (9.6-11.5)
[2020-05-13] MEDS: GABAPENTIN 100 MG CAPSULE PO SCH ×3 (08:08→21:38)
[2020-05-13] MEDS: FAMOTIDINE 20 MG/2 ML IVPush SCH (08:08)
[2020-05-13 08:12] LABS: MD YES
[2020-05-13 08:13] LABS: ANISOCYTOSIS 1+; BAND#(MANUAL) 1.25 x10^3/uL; BANDS%(MANUAL) 8 % (0-7); LYMPH#(MANUAL) 0.47 x10^3/uL (1-3.4); LYMPHS% (MANUAL) 3 % (22-44); MONOS#(MANUAL) 0.47 x10^3/uL (0.3-2.7); MONOS% (MANUAL) 3 % (2-9); SEG#(MANUAL) 13.42 x10^3/uL (1.8-6.8); SEGS% (MANUAL) 86 % (42-75)
[2020-05-13 08:14] LABS: <PLATELET ESTIMATE> ADEQUATE; <PLT MORPHOLOGY> NORMAL PLT MORPH; HYPOCHROMIA 1+; POLYCHROMASIA 1+
[2020-05-13] MEDS ORDERED: VANCOMYCIN 2,300 MG in SODIUM CHLORIDE 0.9% 500 ML IV ONE (12:00)
[2020-05-13] MEDS: CEFEPIME 1 GM in DEXTROSE 5% 50 ML IV SCH ×2 (12:42→23:47)
[2020-05-13] MEDS ORDERED: SODIUM BICARB 8.4%, 50ML SYRINGE IVPush STA (14:05)
[2020-05-13] MEDS ORDERED: WARFARIN 7.5 MG TABLET PO-COUM ONE (18:00)
[2020-05-14 04:00] VITALS: BP 144/78
[2020-05-14 04:59] LABS: MEAN CORPUSCULAR HEMOGLOBIN 27.1 pg (27.5-34.5); MEAN PLATELET VOLUME 9.6 fL (7.4-10.4); PLATELET COUNT 115 x10^3/uL (130-400); RED BLOOD COUNT 5.23 x10^6/uL (4.38-5.82); RED CELL DISTRIBUTION WIDTH 15.4 % (9.4-14.8)
[2020-05-14 05:01] LABS: INTERNATIONAL NORMALIZED RATIO 2.94 (0.93-1.1); PROTHROMBIN TIME 30.8 Seconds (9.6-11.5)
[2020-05-14 05:04] LABS: ANION GAP 8 mmol/L (5-15); CALCIUM 8.7 mg/dL (8.5-10.1); CHLORIDE 111 mmol/L (98-107); CREATININE 1.11 mg/dL (0.7-1.3)
[2020-05-14 05:42] LABS: MD YES
[2020-05-14 05:45] LABS: ANISOCYTOSIS 1+; BAND#(MANUAL) 0.49 x10^3/uL; BANDS%(MANUAL) 6 % (0-7); LYMPH#(MANUAL) 0.81 x10^3/uL (1-3.4); LYMPHS% (MANUAL) 10 % (22-44); MONOS#(MANUAL) 0.16 x10^3/uL (0.3-2.7); MONOS% (MANUAL) 2 % (2-9); POLYCHROMASIA 1+; SEG#(MANUAL) 6.64 x10^3/uL (1.8-6.8); SEGS% (MANUAL) 82 % (42-75); TEAR DROPS 1+
[2020-05-14 05:46] LABS: <PLATELET ESTIMATE> DECREASED; <PLT MORPHOLOGY> NORMAL PLT MORPH; PMNS WITH VACUOLES 1+
[2020-05-14] MEDS ORDERED: CEFAZOLIN PMX 2GM/50ML 50 ML IVPB SCH (06:30)
--- NOTE | 2020-05-14 09:17 | NUR ---
05/14 TF GOAL: VITAL HIGH PROTEIN @ 75ML/HR (70ML/HR if propofol resumes)
[2020-05-14] MEDS: GABAPENTIN 100 MG CAPSULE PO SCH ×3 (10:01→20:52)
[2020-05-14] MEDS: FAMOTIDINE 20 MG/2 ML IVPush SCH (10:01)
[2020-05-14] MEDS: methylPREDNISolone SOD SUCC 125 MG/2 ML IVPush SCH (12:27)
[2020-05-14] MEDS: CEFTRIAXONE PMX 2GM/50ML 50 ML IVPB SCH (15:34)
[2020-05-14] MEDS ORDERED: WARFARIN 2.5 MG TABLET PO-COUM ONE (18:00)
[2020-05-15] MEDS: methylPREDNISolone SOD SUCC 125 MG/2 ML IVPush SCH ×3 (00:03→23:59)
[2020-05-15 03:48] LABS: BASOPHILS % (AUTO) 0 % (0-1); EOSINOPHILS % (AUTO) 0 % (1-7); LYMPHOCYTES % (AUTO) 6 % (22-44); MEAN CORPUSCULAR HEMOGLOBIN 27.3 pg (27.5-34.5); MEAN PLATELET VOLUME 10.1 fL (7.4-10.4); MONOCYTES % (AUTO) 3 % (2-9); NEUTROPHILS % (AUTO) 90 % (42-75); PLATELET COUNT 121 x10^3/uL (130-400); RED BLOOD COUNT 5.45 x10^6/uL (4.38-5.82); RED CELL DISTRIBUTION WIDTH 15.3 % (9.4-14.8)
[2020-05-15 03:49] LABS: MD NO
[2020-05-15 03:59] LABS: CALCIUM 8.5 mg/dL (8.5-10.1); CHLORIDE 112 mmol/L (98-107)
[2020-05-15 04:00] VITALS: BP 160/96
[2020-05-15 04:01] LABS: ANION GAP 5 mmol/L (5-15); CREATININE 1.09 mg/dL (0.7-1.3); TRIGLYCERIDES 152 mg/dL (50-200)
[2020-05-15 04:13] LABS: INTERNATIONAL NORMALIZED RATIO 2.99 (0.93-1.1); PROTHROMBIN TIME 31.4 Seconds (9.6-11.5)
[2020-05-15] MEDS: FAMOTIDINE 20 MG/2 ML IVPush SCH (09:14)
[2020-05-15] MEDS: GABAPENTIN 100 MG CAPSULE PO SCH ×3 (09:14→20:09)
[2020-05-15] MEDS: CEFTRIAXONE PMX 2GM/50ML 50 ML IVPB SCH (16:32)
[2020-05-15] MEDS ORDERED: WARFARIN 2.5 MG TABLET PO-COUM ONE (18:00)
[2020-05-16 04:00] VITALS: BP 132/81
[2020-05-16 04:46] LABS: INTERNATIONAL NORMALIZED RATIO 1.85 (0.93-1.1); PROTHROMBIN TIME 19.5 Seconds (9.6-11.5)
[2020-05-16 04:48] LABS: BASOPHILS % (AUTO) 0 % (0-1); EOSINOPHILS % (AUTO) 0 % (1-7); LYMPHOCYTES % (AUTO) 4 % (22-44); MEAN CORPUSCULAR HEMOGLOBIN 27.2 pg (27.5-34.5); MEAN CORPUSCULAR HGB CONC 32.6 g/dL (33.2-36.2); MEAN PLATELET VOLUME 10.2 fL (7.4-10.4); MONOCYTES % (AUTO) 3 % (2-9); NEUTROPHILS % (AUTO) 94 % (42-75); PLATELET COUNT 115 x10^3/uL (130-400); RED BLOOD COUNT 5.54 x10^6/uL (4.38-5.82); RED CELL DISTRIBUTION WIDTH 15.9 % (9.4-14.8)
[2020-05-16 05:43] LABS: MD SCAN
[2020-05-16] MEDS ORDERED: POTASSIUM CHLORIDE 20 MEQ PACKET PO ONE (08:30)
[2020-05-16] MEDS ORDERED: MAGNESIUM SULFATE PMX 2GM/50ML 50 ML IVPB ONE (08:30)
[2020-05-16] MEDS: FAMOTIDINE 20 MG/2 ML IVPush SCH (08:51)
[2020-05-16] MEDS: GABAPENTIN 100 MG CAPSULE PO SCH ×3 (08:51→21:23)
[2020-05-16] MEDS ORDERED: FUROSEMIDE 40 MG/4 ML IV ONE (10:30)
[2020-05-16] MEDS: ENOXAPARIN 120MG/0.8ML SQ SCH ×2 (12:14→21:23)
[2020-05-16] MEDS: methylPREDNISolone SOD SUCC 125 MG/2 ML IVPush SCH ×2 (12:14→23:29)
[2020-05-16] MEDS ORDERED: WARFARIN 7.5 MG TABLET PO-COUM ONE ×2 (15:44→18:00)
[2020-05-16] MEDS: CEFTRIAXONE PMX 2GM/50ML 50 ML IVPB SCH (16:01)
[2020-05-17] MEDS: ACETAMINOPHEN 325 MG TABLET PO PRN ×2 (04:26→09:21)
[2020-05-17 04:47] VITALS: BP 118/62
[2020-05-17 04:54] LABS: BASOPHILS % (AUTO) 0 % (0-1); EOSINOPHILS % (AUTO) 0 % (1-7); LYMPHOCYTES % (AUTO) 3 % (22-44); MEAN CORPUSCULAR HEMOGLOBIN 27.3 pg (27.5-34.5); MEAN CORPUSCULAR HGB CONC 32.5 g/dL (33.2-36.2); MEAN PLATELET VOLUME 9.4 fL (7.4-10.4); MONOCYTES % (AUTO) 3 % (2-9); NEUTROPHILS % (AUTO) 94 % (42-75); PLATELET COUNT 124 x10^3/uL (130-400); RED BLOOD COUNT 5.64 x10^6/uL (4.38-5.82); RED CELL DISTRIBUTION WIDTH 16.1 % (9.4-14.8)
[2020-05-17 04:58] LABS: MD NO
[2020-05-17 05:03] LABS: INTERNATIONAL NORMALIZED RATIO 1.46 (0.93-1.1); PROTHROMBIN TIME 15.4 Seconds (9.6-11.5)
[2020-05-17 05:05] LABS: ANION GAP 3 mmol/L (5-15); CALCIUM 8.6 mg/dL (8.5-10.1); CHLORIDE 111 mmol/L (98-107); CREATININE 0.94 mg/dL (0.7-1.3)
[2020-05-17] MEDS: GABAPENTIN 100 MG CAPSULE PO SCH ×3 (09:21→20:19)
[2020-05-17] MEDS: FAMOTIDINE 20 MG/2 ML IVPush SCH (09:22)
[2020-05-17] MEDS: ENOXAPARIN 120MG/0.8ML SQ SCH ×2 (09:22→22:22)
[2020-05-17] MEDS: CEFTRIAXONE PMX 2GM/50ML 50 ML IVPB SCH (15:59)
[2020-05-17] MEDS ORDERED: WARFARIN 7.5 MG TABLET PO-COUM ONE (18:00)
[2020-05-18 04:00] VITALS: BP 105/62
[2020-05-18 04:57] LABS: BASOPHILS % (AUTO) 0 % (0-1); EOSINOPHILS % (AUTO) 2 % (1-7); LYMPHOCYTES % (AUTO) 16 % (22-44); MEAN CORPUSCULAR HEMOGLOBIN 27.4 pg (27.5-34.5); MEAN CORPUSCULAR HGB CONC 32.3 g/dL (33.2-36.2); MEAN PLATELET VOLUME 10.9 fL (7.4-10.4); MONOCYTES % (AUTO) 6 % (2-9); NEUTROPHILS % (AUTO) 76 % (42-75); PLATELET COUNT 126 x10^3/uL (130-400); RED BLOOD COUNT 5.47 x10^6/uL (4.38-5.82); RED CELL DISTRIBUTION WIDTH 16.1 % (9.4-14.8)
[2020-05-18 05:04] LABS: INTERNATIONAL NORMALIZED RATIO 1.4 (0.93-1.1); PROTHROMBIN TIME 14.8 Seconds (9.6-11.5)
[2020-05-18 05:06] LABS: MD NO
[2020-05-18 07:45] LABS: O2 FLOW 2 L/min
[2020-05-18] MEDS: GABAPENTIN 100 MG CAPSULE PO SCH ×3 (07:57→23:03)
[2020-05-18] MEDS: ENOXAPARIN 120MG/0.8ML SQ SCH ×2 (11:55→22:00)
[2020-05-18 15:18] VITALS: BP 115/78
[2020-05-18] MEDS: CEFTRIAXONE PMX 2GM/50ML 50 ML IVPB SCH (17:16)
[2020-05-18] MEDS ORDERED: WARFARIN 5 MG TABLET PO-COUM ONE (17:44)
[2020-05-18] MEDS ORDERED: WARFARIN 10 MG TABLET PO-COUM ONE (18:00)
[2020-05-18 19:42] VITALS: BP 110/74
[2020-05-19 01:05] VITALS: BP 108/77
[2020-05-19 05:37] LABS: BASOPHILS % (AUTO) 0 % (0-1); EOSINOPHILS % (AUTO) 2 % (1-7); LYMPHOCYTES % (AUTO) 16 % (22-44); MEAN CORPUSCULAR HEMOGLOBIN 27.3 pg (27.5-34.5); MEAN CORPUSCULAR HGB CONC 32.7 g/dL (33.2-36.2); MEAN PLATELET VOLUME 9.4 fL (7.4-10.4); MONOCYTES % (AUTO) 5 % (2-9); NEUTROPHILS % (AUTO) 77 % (42-75); PLATELET COUNT 119 x10^3/uL (130-400); RED BLOOD COUNT 5.49 x10^6/uL (4.38-5.82); RED CELL DISTRIBUTION WIDTH 15.8 % (9.4-14.8)
[2020-05-19 05:43] LABS: MD NO
[2020-05-19 05:54] LABS: INTERNATIONAL NORMALIZED RATIO 1.7 (0.93-1.1); PROTHROMBIN TIME 17.9 Seconds (9.6-11.5)
[2020-05-19 08:04] VITALS: BP 97/66
[2020-05-19] MEDS: GABAPENTIN 100 MG CAPSULE PO SCH ×3 (09:40→20:51)
[2020-05-19] MEDS: ENOXAPARIN 120MG/0.8ML SQ SCH ×2 (09:42→20:53)
[2020-05-19 13:20] VITALS: BP 102/70
[2020-05-19] MEDS: CEFTRIAXONE PMX 2GM/50ML 50 ML IVPB SCH (16:18)
[2020-05-19] MEDS ORDERED: WARFARIN 10 MG TABLET PO-COUM ONE (18:00)
[2020-05-19 19:20] VITALS: BP 101/69
[2020-05-20 00:32] VITALS: BP 94/64
[2020-05-20 05:59] LABS: INTERNATIONAL NORMALIZED RATIO 1.61 (0.93-1.1)
[2020-05-20 06:10] LABS: BASOPHILS % (AUTO) 0 % (0-1); EOSINOPHILS % (AUTO) 2 % (1-7); LYMPHOCYTES % (AUTO) 17 % (22-44); MEAN CORPUSCULAR HEMOGLOBIN 27.7 pg (27.5-34.5); MEAN CORPUSCULAR HGB CONC 33.2 g/dL (33.2-36.2); MEAN PLATELET VOLUME 10.1 fL (7.4-10.4); MONOCYTES % (AUTO) 7 % (2-9); NEUTROPHILS % (AUTO) 73 % (42-75); PLATELET COUNT 147 x10^3/uL (130-400); RED BLOOD COUNT 5.26 x10^6/uL (4.38-5.82); RED CELL DISTRIBUTION WIDTH 16.2 % (9.4-14.8)
[2020-05-20 06:38] LABS: MD NO
[2020-05-20] MEDS: GABAPENTIN 100 MG CAPSULE PO SCH ×3 (08:19→20:44)
[2020-05-20] MEDS: ENOXAPARIN 120MG/0.8ML SQ SCH ×2 (08:20→20:47)
[2020-05-20 08:24] VITALS: BP 96/64
[2020-05-20 13:29] VITALS: BP 90/64
[2020-05-20] MEDS: CEFTRIAXONE PMX 2GM/50ML 50 ML IVPB SCH (16:28)
[2020-05-20] MEDS ORDERED: WARFARIN 5 MG TABLET PO-COUM ONE (16:32)
[2020-05-20] MEDS ORDERED: WARFARIN 10 MG TABLET PO-COUM ONE (18:00)
[2020-05-20 19:08] VITALS: BP 106/72
[2020-05-21 00:50] VITALS: BP 96/63
[2020-05-21 05:04] LABS: BASOPHILS % (AUTO) 0 % (0-1); EOSINOPHILS % (AUTO) 2 % (1-7); LYMPHOCYTES % (AUTO) 20 % (22-44); MEAN CORPUSCULAR HEMOGLOBIN 27.4 pg (27.5-34.5); MEAN CORPUSCULAR HGB CONC 32.9 g/dL (33.2-36.2); MEAN PLATELET VOLUME 10.2 fL (7.4-10.4); MONOCYTES % (AUTO) 7 % (2-9); NEUTROPHILS % (AUTO) 71 % (42-75); PLATELET COUNT 173 x10^3/uL (130-400); RED BLOOD COUNT 5.21 x10^6/uL (4.38-5.82); RED CELL DISTRIBUTION WIDTH 16.6 % (9.4-14.8)
[2020-05-21 05:20] LABS: MD NO
[2020-05-21 07:58] VITALS: BP 104/74
[2020-05-21 08:32] LABS: INTERNATIONAL NORMALIZED RATIO 1.7 (0.93-1.1); PROTHROMBIN TIME 17.9 Seconds (9.6-11.5)
[2020-05-21] MEDS: GABAPENTIN 100 MG CAPSULE PO SCH (08:54)
[2020-05-21] MEDS: ENOXAPARIN 120MG/0.8ML SQ SCH (08:54)
[2020-05-21] MEDS ORDERED: WARF7.5T46 PO (11:21)
[2020-05-21] MEDS ORDERED: CEFD300C37 PO (11:23)
[2020-05-21] MEDS ORDERED: APIX5TAB PO (14:06)
[2020-05-21] MEDS ORDERED: WARFARIN 10 MG TABLET PO-COUM ONE (18:00)
== END 2020-05-21 16:16 | disposition home or self-care (01) | DRG 720 ==
LOC: ED 22:34 → EDIP 05-12 00:39 → CCU 05-12 01:30 → ICU 05-12 04:36 → CCU 05-13 19:25 → 4NW 05-18 15:10 → DCLOUNGE 05-21 16:05
PROVIDERS: ADMIT Family Medicine; ATTEND Hospitalist
PROC: 02HV33Z Insertion of Infusion Device into Superior Vena Cava, Percutaneous Approach (ICD-10-PCS; principal; 2020-05-12)
PROC: B548ZZA Ultrasonography of Superior Vena Cava, Guidance (ICD-10-PCS; 2020-05-12)
PROC: 5A1955Z Respiratory Ventilation, Greater than 96 Consecutive Hours (ICD-10-PCS; 2020-05-12)
PROC: 0BH17EZ Insertion of Endotracheal Airway into Trachea, Via Natural or Artificial Opening (ICD-10-PCS; 2020-05-12)
DX: A41.89 Other specified sepsis (principal); D69.6 Thrombocytopenia, unspecified; D72.823 Leukemoid reaction; E66.01 Morbid (severe) obesity due to excess calories; Z68.41 Body mass index [BMI] 40.0-44.9, adult; E87.2 Acidosis; G47.33 Obstructive sleep apnea (adult) (pediatric); Z20.828 Contact with and (suspected) exposure to other viral communicable diseases; I13.0 Hypertensive heart and chronic kidney disease with heart failure and stage 1 through stage 4 chronic kidney disease, or unspecified chronic kidney disease; I27.29 Other secondary pulmonary hypertension; I27.81 Cor pulmonale (chronic); I50.32 Chronic diastolic (congestive) heart failure; J15.4 Pneumonia due to other streptococci; J38.6 Stenosis of larynx; J39.8 Other specified diseases of upper respiratory tract; J96.21 Acute and chronic respiratory failure with hypoxia; J96.22 Acute and chronic respiratory failure with hypercapnia; J98.11 Atelectasis; M10.9 Gout, unspecified; N17.0 Acute kidney failure with tubular necrosis; N18.9 Chronic kidney disease, unspecified; Z79.01 Long term (current) use of anticoagulants; Z86.14 Personal history of Methicillin resistant Staphylococcus aureus infection; Z86.19 Personal history of other infectious and parasitic diseases; Z86.711 Personal history of pulmonary embolism; Z86.718 Personal history of other venous thrombosis and embolism; Z91.19 Patient's noncompliance with other medical treatment and regimen; Z99.11 Dependence on respirator [ventilator] status
CPT/HCPCS: 36415; 36573; 36600; 70360; 71045; 74018; 80048; 80053; 80307; 82436; 82803; 83605; 83615; 83735; 83880; 84133; 84145; 84300; 84478; 84484; 85025; 85379; 85610; 86140; 87040; 87070; 87077; 87081; 87181; 87205; 87635; 93005; 94002; 94003; 94660; 96365; 99291; G0378; J0690; J0692; J0696; J1650; J1940; J2704; J3370; C1751; J2930; J3475; J7030; J7040; J7050

== ENCOUNTER 2020-06-06 23:14 | Emergency (ER) | payer MEDICAID ==
[~2020-06-06] VITALS: Ht 170.2 cm; Wt 112.0 kg
[~2020-06-06 23:14] MED LIST changes: +APIX5TAB PO; +CEFD300C37 PO; +WARF7.5T46 PO
--- NOTE | 2020-06-07 01:36 | NUR ---
pt to room from lobby
--- NOTE | 2020-06-07 01:40 | NUR ---
Patient presents to ER c/o diff breathing and stridor. Patient had recent airway surgery and has been seen in [place]. Patient has stridor. Speaks in full word sentences. Respirations even and unlabored.
--- NOTE | 2020-06-07 02:45 | NUR ---
Patient has no complaints at this time. Awaiting records.
[2020-06-07 02:49] VITALS: BP 102/84
[2020-06-07] MEDS ORDERED: RACEPINEPHRINE INH 2.25%, 0.5ML ONE (03:50)
[2020-06-07] MEDS ORDERED: DEXAMETHASONE 4 MG TABLET ONE (03:50)
--- NOTE | 2020-06-07 03:57 | NUR ---
Medicated patient per mar. Patient to be d/c.
[2020-06-07] MEDS ORDERED: RACEPINEPHRINE INH 2.25%, 0.5ML NPPB ONE (04:00)
[2020-06-07] MEDS ORDERED: DEXAMETHASONE 4 MG TABLET PO ONE (04:00)
--- NOTE | 2020-06-07 04:35 | NUR ---
Discharge instructions given. All questions and concerns addressed. Patient ambulatory with a steady gait. Belongings with patient.
== END 2020-06-07 04:46 | disposition home or self-care (01) ==
LOC: ED 23:49
DX: J39.8 Other specified diseases of upper respiratory tract (principal); R06.1 Stridor; R94.31 Abnormal electrocardiogram [ECG] [EKG]; I11.0 Hypertensive heart disease with heart failure; I50.9 Heart failure, unspecified; M10.9 Gout, unspecified; M79.7 Fibromyalgia; Z86.718 Personal history of other venous thrombosis and embolism
CPT/HCPCS: 70360; 71046; 93005; 94640; 99284